=== PATIENT | female | born 1960 | race Hispanic/Latino ===

== ENCOUNTER 2016-05-12 16:55 | Inpatient (IN) | payer BC, OTHER ==
--- NOTE | 2016-05-12 17:39 | Emergency Department Report ---
Chief Complaint: Abdominal Pain Stated Complaint: ABD PAIN/YELLOW SKIN Time Seen by Provider: 05/12/16 17:36 - HPI History of Present Illness: Patient reports abdominal pain with yellow discoloration of skin that started one week ago - ROS Review of Systems: all other systems are unremarkable except for documentation in HPI - Exam Vital Signs: Vital Signs 05/12/16 17:30 Temperature 97.1 F L Pulse Rate 106 H Respiratory 20 Rate Blood Pressure 153/86 O2 Sat by Pulse 93 Oximetry Physical Exam: Gen: obese, NAD Abd: soft, obese, diffuse tenderness, bowel sounds present, no guarding, rebound or rigid MSE screening note: Focused history and physical exam performed. Due to findings the following was ordered: laboratory studies ordered ED Disposition for MSE Condition: Stable Instructions: Abdominal Pain (ED)
[2016-05-12 17:55] LABS: Basophils % (Auto) 0.4 % (0.0-1.8); Eosinophils % (Auto) 0.7 % (0.0-4.3); Hematocrit 45.2 % (30.3-42.9); Hemoglobin 15.1 gm/dl (10.1-14.3); Mean Corpuscular HGB Conc 33 % (30-34); Mean Corpuscular Hemoglobin 30 pg (28-32); Mean Corpuscular Volume 89 fl (79-97); Red Cell Distribution Width 16.5 % (13.2-15.2); White Blood Count 16.6 K/mm3 (4.5-11.0)
[2016-05-12 18:07] LABS: Partial Thromboplastin Time 28.7 Sec. (24.2-36.6)
[2016-05-12 18:11] LABS: INR 1.01 (0.87-1.13)
[2016-05-12 18:12] LABS: Platelet Count 295 K/mm3 (140-440)
[2016-05-12 18:17] LABS: Albumin 3.2 g/dL (3.9-5); Albumin/Globulin Ratio 0.7 %; Total Protein 7.8 g/dL (6.3-8.2)
[2016-05-12 18:18] LABS: Alanine Aminotransferase 59 units/L (7-56); Albumin 3.3 g/dL (3.9-5); Albumin/Globulin Ratio 0.8 %; Alkaline Phosphatase 607 units/L (35-129); Blood Urea Nitrogen 7 mg/dL (7-17); Calcium 9.3 mg/dL (8.4-10.2); Carbon Dioxide 22 mmol/L (22-30); Glucose 175 mg/dL (65-100); Sodium 136 mmol/L (137-145); Total Protein 7.7 g/dL (6.3-8.2)
[2016-05-12 19:15] LABS: Bilirubin,Direct 12.9 mg/dL (0-0.2); Bilirubin,Indirect 4.9 mg/dL; Bilirubin,Total 17.8 mg/dL (0.1-1.2)
[2016-05-12 19:16] LABS: Anion Gap 22 mmol/L; Bilirubin,Total 17.3 mg/dL (0.1-1.2)
[2016-05-12 19:26] LABS: Bacteria,Urine 1+ /HPF (Negative); Bilirubin,Urine MOD (Negative); Blood,Urine MOD (Negative); Ketones,Urine NEG (Negative); Leukocyte Esterase,Urine NEG (Negative); Mucus,Urine FEW /HPF; Nitrite,Urine NEG (Negative); RBC,Urine < 1.0 /HPF (0.0-6.0); WBC,Urine < 1.0 /HPF (0.0-6.0)
--- NOTE | 2016-05-13 09:02 | Emergency Department Report ---
ED Abdominal Pain HPI - General Chief Complaint: Abdominal Pain Stated Complaint: ABD PAIN/YELLOW SKIN Time Seen by Provider: 05/13/16 09:00 Source: patient Mode of arrival: Ambulatory Limitations: No Limitations - History of Present Illness Initial Comments: The patient has some postprandial discomfort chronically. She states that her daughter noted her eyes were yellow this morning. That is why she came to the emergency department she is not complaining of any acute abdominal pain. She's had no signs of GI bleeding. She states that she may have lost about 26 pounds since she last saw her primary care doctor over the summer. She states she lost her insurance so she has not followed up. He has had some increased leg swelling. She does not complain of shortness of breath however. She states that she has had previous Dopplers of her legs which negative for DVT. She thinks he's had a previous ultrasound a few years ago that was not at this facility. Denies any recent fever or chills. MD Complaint: abdominal pain -: week(s), month(s) Location: periumbilical Radiation: none Migration to: no migration Severity: mild, moderate Quality: dull Consistency: now resolved Improves With: nothing Worsens With: eating Associated Symptoms: denies other symptoms - Related Data Home Medications Medication Instructions Recorded Confirmed Last Taken No Known Home Medications [No 05/12/16 05/12/16 Unknown Reported Home Medications] Allergies Allergy/AdvReac Type Severity Reaction Status Date / Time No Known Allergies Allergy Verified 05/13/16 10:03 ED Review of Systems ROS: Stated complaint: ABD PAIN/YELLOW SKIN Other details as noted in HPI Constitutional: denies: chills, fever Eyes: denies: eye pain, eye discharge, vision change ENT: denies: ear pain, throat pain Respiratory: denies: cough, shortness of breath, wheezing Cardiovascular: denies: chest pain, palpitations Endocrine: no symptoms reported Gastrointestinal: as per HPI, abdominal pain, other (states stool has been light in color). denies: nausea, diarrhea, hematemesis, melena Genitourinary: denies: urgency, dysuria, discharge Musculoskeletal: other (some leg swelling). denies: back pain, joint swelling, arthralgia Skin: denies: rash, lesions Neurological: denies: headache, weakness, paresthesias Psychiatric: denies: anxiety, depression Hematological/Lymphatic: denies: easy bleeding, easy bruising ED Past Medical Hx - Past Medical History Previous Medical History?: Yes Additional medical history: abd. pain, Leg swelling - Surgical History Past Surgical History?: Yes Additional Surgical History: Oli carpel tunnel surgery - Social History Smoking Status: Current Every Day Smoker Substance Use Type: None, Other - Medications Home Medications: Home Medications Medication Instructions Recorded Confirmed Last Taken Type No Known Home Medications [No 05/12/16 05/12/16 Unknown History Reported Home Medications] ED Physical Exam - General Limitations: No Limitations General appearance: alert, in no apparent distress - Head Head exam: Present: atraumatic, normocephalic - Eye Eye exam: Present: normal appearance. Absent: scleral icterus - ENT ENT exam: Present: mucous membranes moist - Neck Neck exam: Present: normal inspection - Respiratory Respiratory exam: Present: normal lung sounds bilaterally. Absent: respiratory distress - Cardiovascular Cardiovascular Exam: Present: regular rate, normal rhythm. Absent: systolic murmur, diastolic murmur, rubs, gallop - GI/Abdominal GI/Abdominal exam: Present: soft, normal bowel sounds, other (limited by morbid obesity. no apparent ascites.). Absent: distended, tenderness, guarding, rebound, rigid, organomegaly (too obese to really determine) - Extremities Exam Extremities exam: Present: normal inspection, other (mild pretibial edema) - Back Exam Back exam: Present: normal inspection. Absent: CVA tenderness (R), CVA tenderness (L) - Neurological Exam Neurological exam: Present: alert, oriented X3, CN II-XII intact. Absent: motor sensory deficit - Psychiatric Psychiatric exam: Present: normal affect, normal mood - Skin Skin exam: Present: warm, dry, intact, normal color. Absent: rash ED Course Vital Signs 05/12/16 05/13/16 05/13/16 17:30 01:05 08:00 Temperature 97.1 F L 97.5 F L Pulse Rate 106 H 85 Respiratory 20 18 Rate Blood Pressure 153/86 151/71 O2 Sat by Pulse 93 96 97 Oximetry 05/13/16 05/13/16 05/13/16 08:01 08:11 08:12 Temperature Pulse Rate 85 Respiratory 18 Rate Blood Pressure O2 Sat by Pulse 97 96 97 Oximetry 05/13/16 08:19 Temperature Pulse Rate Respiratory 18 Rate Blood Pressure O2 Sat by Pulse 98 Oximetry ED Medical Decision Making - Lab Data Result diagrams: 05/12/16 17:44 05/12/16 17:44 Laboratory Results - last 24 hr 05/12/16 05/12/16 05/12/16 17:44 17:44 17:44 WBC 16.6 H RBC 5.10 H Hgb 15.1 H Hct 45.2 H MCV 89 MCH 30 MCHC 33 RDW 16.5 H Plt Count 295 Lymph % (Auto) 18.6 Bell % (Auto) 4.2 Eos % (Auto) 0.7 Baso % (Auto) 0.4 Lymph # 3.1 Bell # 0.7 Eos # 0.1 Baso # 0.1 Seg Neutrophils % 76.1 H Seg Neutrophils # 12.7 H PT 13.2 INR 1.01 APTT 28.7 Sodium 136 L Potassium 4.0 Chloride 96.0 L Carbon Dioxide 22 Anion Gap 22 BUN 7 Creatinine 0.2 L Estimated GFR > 60 BUN/Creatinine Ratio 35.00 Glucose 175 H Calcium 9.3 Total Bilirubin 17.3 H Direct Bilirubin Indirect Bilirubin AST 48 H ALT 59 H Alkaline Phosphatase 607 H Total Protein 7.7 Albumin 3.3 L Albumin/Globulin Ratio 0.8 Lipase Urine Color Urine Turbidity Urine pH Ur Specific [place] Urine Protein Urine Glucose (UA) Urine Ketones Urine Blood Urine Nitrite Urine Bilirubin Urine Ictotest Urine Urobilinogen Ur Leukocyte Esterase Urine WBC (Auto) Urine RBC (Auto) Urine Bacteria (Auto) Urine Mucus 05/12/16 05/12/16 17:44 18:51 WBC RBC Hgb Hct MCV MCH MCHC RDW Plt Count Lymph % (Auto) Bell % (Auto) Eos % (Auto) Baso % (Auto) Lymph # Bell # Eos # Baso # Seg Neutrophils % Seg Neutrophils # PT INR APTT Sodium Potassium Chloride Carbon Dioxide Anion Gap BUN Creatinine Estimated GFR BUN/Creatinine Ratio Glucose Calcium Total Bilirubin 17.8 H Direct Bilirubin 12.9 H Indirect Bilirubin 4.9 AST 48 H ALT 59 H Alkaline Phosphatase 602 H Total Protein 7.8 Albumin 3.2 L Albumin/Globulin Ratio 0.7 Lipase 22 Urine Color [place] Urine Turbidity Clear Urine pH 5.0 Ur Specific [place] 1.021 Urine Protein 30 mg/dl Urine Glucose (UA) Neg Urine Ketones Neg Urine Blood Mod Urine Nitrite Neg Urine Bilirubin Mod Urine Ictotest Positive Urine Urobilinogen 4.0 Ur Leukocyte Esterase Neg Urine WBC (Auto) < 1.0 Urine RBC (Auto) < 1.0 Urine Bacteria (Auto) 1+ Urine Mucus Few - EKG Data -: EKG Interpreted by Me EKG shows normal: sinus rhythm, axis, intervals, QRS complexes, ST-T waves Rate: normal - EKG Data Interpretation: nonspecific ST-T wave riya, other (low-voltage EKG 1 PVC nonspecific changes) - Medical Decision Making The patient does appear to have biliary obstruction most likely. I have ordered imaging studies. She was admitted by Dr. blandon or to the hospitalist service. Studies are pending. Patient is admitted in stable condition. Critical care attestation.: If time is entered above; I have spent that time in minutes in the direct care of this critically ill patient, excluding procedure time. ED Disposition Clinical Impression: Biliary obstruction Hepatic failure Qualifiers: Liver failure chronicity: subacute Hepatic coma status: without hepatic coma Qualified Code(s): K72.00 - Acute and subacute hepatic failure without coma Leukocytosis Qualifiers: Leukocytosis type: unspecified Qualified Code(s): D72.829 - Elevated white blood cell count, unspecified Disposition: OP ADMITTED IP TO THIS HOSP Is pt being admited?: Yes Does the pt Need Aspirin: Yes Condition: Stable Time of Disposition: 10:34
--- NOTE | 2016-05-13 09:49 | History and Physical Report ---
History of Present Illness Date of examination: 05/13/16 Date of admission: 05/13/16 Chief complaint: Abdominal pain and yellowish discoloration of skin last 1 week History of present illness: Very pleasant morbidly obese 56-year-old female patient with no significant past medical history not on any medications except for ongoing tobacco use presented to the emergency room with history of abdominal pain and yellowish discoloration of the skin for the last 1 week Patient also reports that she lost significant weight last few months Complains of nausea no vomiting, denies headache dizziness weakness or numbness Denies chest pain , complains of mild shortness of breath Cause of social issues she is not able to follow with her primary care physician on a regular basis, not on any medications Complaints of some swelling of both feet Abdominal pain dull sometimes colicky , grades between 3-4/10 at its peak Mainly periumbilical and right upper quadrant, no radiation Associated with mild nausea no vomiting No aggravating and relieving factors At the time of my evaluation patient does not have pain Past History Past Medical History: other (edema legs) Past Surgical History: Other (carpal tunnel surgery) Social history: lives with family, smoking, full code. denies: alcohol abuse, prescription drug abuse, IV drug use Family history: hypertension Medications and Allergies Allergies Allergy/AdvReac Type Severity Reaction Status Date / Time No Known Allergies Allergy Verified 05/13/16 10:03 Home Medications Medication Instructions Recorded Confirmed Last Taken Type No Known Home Medications [No 05/12/16 05/12/16 Unknown History Reported Home Medications] Review of Systems Constitutional: weight loss, weakness, no weight gain, no fever, no chills Ears, nose, mouth and throat: no nasal congestion, no nasal discharge Cardiovascular: no chest pain, no orthopnea, no palpitations, no shortness of breath Respiratory: no cough with sputum, no shortness of breath Gastrointestinal: abdominal pain, nausea, jaundice, no vomiting Musculoskeletal: no myalgias, no arthritis Integumentary: jaundice, color changes (icterus), no rash, no lesions Neurological: no paralysis, no seizures, no syncope Psychiatric: no anxiety, no depression Endocrine: no cold intolerance, no heat intolerance, no polydipsia, no polyuria Hematologic/Lymphatic: no easy bruising, no easy bleeding Allergic/Immunologic: no urticaria, no allergic rhinitis Exam - Constitutional Vitals: Temp Pulse Resp BP Pulse Ox 97.5 F L 85 18 151/71 98 05/13/16 01:05 05/13/16 08:12 05/13/16 08:19 05/13/16 01:05 05/13/16 08:19 General appearance: Present: no acute distress, well-nourished, obese (morbidly obese), other (icterus) - EENT Eyes: Present: PERRL, EOM intact, scleral icterus - Neck Neck: Present: supple, normal ROM - Respiratory Respiratory effort: normal Respiratory: bilateral: diminished, negative: rales, rhonchi, wheezing - Cardiovascular Rhythm: regular Heart Sounds: Present: S1 & S2 - Extremities Extremities: no ischemia, pulses intact, pulses symmetrical Extremity abnormal: edema - Abdominal General gastrointestinal: Present: soft, non-tender, non-distended, normal bowel sounds - Integumentary Integumentary: Present: clear, warm, jaundice - Musculoskeletal Musculoskeletal: strength equal bilaterally, generalized weakness - Psychiatric Psychiatric: appropriate mood/affect, cooperative - Neurologic Neurologic: CNII-XII intact, moves all extremities Results - Labs CBC & Chem 7: 05/14/16 04:50 05/14/16 04:50 Labs: Abnormal lab results 05/12/16 05/12/16 05/12/16 Range/Units 17:44 17:44 17:44 WBC 16.6 H (4.5-11.0) K/mm3 RBC 5.10 H (3.65-5.03) M/mm3 Hgb 15.1 H (10.1-14.3) gm/dl Hct 45.2 H (30.3-42.9) % RDW 16.5 H (13.2-15.2) % Seg Neutrophils % 76.1 H (40.0-70.0) % Seg Neutrophils # 12.7 H (1.8-7.7) K/mm3 Sodium 136 L (137-145) mmol/L Chloride 96.0 L (98-107) mmol/L Creatinine 0.2 L (0.7-1.2) mg/dL Glucose 175 H (65-100) mg/dL Total Bilirubin 17.3 H 17.8 H (0.1-1.2) mg/dL Direct Bilirubin 12.9 H (0-0.2) mg/dL AST 48 H 48 H (5-40) units/L ALT 59 H 59 H (7-56) units/L Alkaline Phosphatase 607 H 602 H (35-129) units/L Albumin 3.3 L 3.2 L (3.9-5) g/dL Assessment and Plan --Obstructive Jaundice Secondary to cholelithiasis, obstructed CBD GI evaluation possible ERCP, supportive care --Cholilithiasis IV fluids and supportive care GI evaluation, surgery evaluation if needed --Leukocytosis, rule out sepsis UA analysis consistent with UTI Get urine cultures, empiric antibiotics With Rocephin --Ongoing tobacco use Smoking cessation counseling done, advised nicotine patch Patient counseled on this and consequences of ongoing tobacco use Spent 10 minutes smoking cessation counseling --Morbid obesity Counseling done advised dietary modification and exercise as tolerated and weight reduction When medically stable Patient may benefit outpatient bariatric surgical evaluation for weight reduction --Full CODE STATUS Closely monitor the patient and adjust the management as needed Medical records reviewed Plan of care discussed with the patient, family member at the bedside as well as the nurse
[2016-05-13] MEDS ORDERED: HABITROL TD ONE (09:51)
[2016-05-13 09:59] LABS: Bilirubin,Direct 7.4 mg/dL (0-0.2); Bilirubin,Indirect 8.9 mg/dL; Bilirubin,Total 16.3 mg/dL (0.1-1.2); Magnesium 1.9 mg/dL (1.7-2.3)
--- NOTE | 2016-05-13 10:54 | Ultrasound Report ---
Sonogram right upper quadrant: History: Jaundice. Findings Aortic diameter 1.6 cm. No aneurysm. Dilatation noted the intrahepatic ducts and common bile duct. Common bile duct measures 15 mm. Gallbladder wall thickness is 2.5 mm. Multiple calculi are identified within the gallbladder. No pericholecystic fluid. Multiple calculi are noted the common bile duct. Right kidney 12.2 x 4.9 x 4.9 cm. Cortical thickness 1.2 cm. 1 cm echogenic focus in the right kidney suggestive of a calculus. Mild hydronephrosis. Next Impression: Calculi in the gallbladder and common bile duct with dilatation of common bile duct and intrahepatic ducts. Calculus at upper pole right kidney. Mild dilatation of intrarenal collecting system of right kidney.
--- NOTE | 2016-05-13 11:17 | Cat Scan Report ---
CT scan of abdomen and pelvis with IV contrast: History: Jaundice. Findings: Normal lung bases. No pleural or pericardial effusion. Dilated intrahepatic ducts and common bile duct with maximum diameter of common bile duct in the husam hepatis a 20 mm. Multiple calculi in gallbladder. Suspicion of calculus in the common bile duct. Normal pancreas. Normal spleen. Normal adrenals. 5mm nonobstructing calculus left kidney and 3 mm nonobstructive left mid kidney. 1 cm hypodensity left kidney probably a cyst. Normal bladder. No free intraperitoneal fluid. No evidence of adenopathy. Atherosclerotic abdominal aorta without aneurysm. 5 cm diameter umbilical hernia containing fat. Gaseous colon with stool in colon. No evidence of appendicitis or diverticulitis. Impression: Dilated intrahepatic ducts and common bile duct with calculi in common bile duct. Multiple calculi in gallbladder. Nonobstructing calculus right and left kidney. Hypodensity left kidney probably a cyst. Umbilical hernia containing fat.
--- NOTE | 2016-05-13 11:38 | XRay Report ---
Single view chest compared to 04/24/13 History: Hypertension. Next Findings Cardiomegaly. Trachea is midline. Low-volume lungs. No consolidation, pneumothorax or pleural effusion. Impression No acute cardiopulmonary findings
[2016-05-13] MEDS ORDERED: MORPHINE IV PRN (11:57)
[2016-05-13] MEDS ORDERED: PERCOCET 5/325 PO PRN (11:57)
[2016-05-13] MEDS: PROTONIX PO SCH (13:38)
[2016-05-13] MEDS: NACL 0.9% 1000 ML 1,000 ML IV SCH (13:38)
--- NOTE | 2016-05-13 19:47 | Gastroenterology Consultation ---
History of Present Illness - Reason for Consult Consult date: 05/13/16 jaundice - History of Present Illness Pt is a 56 yo morbidly obese wf who presents with jaundice. Pt reports noticing change in eyes/skin color for the past 1 week. She reports ~1 month history of lower abdominal pain, which occurs intermittently, and worsened with meals. + chills at home. Denies n/v, weight loss. Denies h/o known liver disease or alcohol use. Past History Past Medical History: other (edema legs) Past Surgical History: Other (carpal tunnel surgery) Social history: lives with family, smoking, full code. denies: alcohol abuse, prescription drug abuse, IV drug use Family history: hypertension Medications and Allergies Allergies Allergy/AdvReac Type Severity Reaction Status Date / Time No Known Allergies Allergy Verified 05/13/16 10:03 Home Medications Medication Instructions Recorded Confirmed Last Taken Type No Known Home Medications [No 05/12/16 05/12/16 Unknown History Reported Home Medications] Active Meds: Active Medications Aspirin (Baby Aspirin) 81 mg PO ONCE ONE Stop: 05/14/16 10:36 Enoxaparin Sodium (Lovenox) 40 mg SUB-Q QDAY@2200 DEX Sodium Chloride (Nacl 0.9% 1000 Ml) 1,000 mls @ 75 mls/hr IV DIRECT [facility] Last Admin: 05/13/16 13:38 Dose: 75 mls/hr Piperacillin Sod/Tazobactam Sod (Zosyn/Ns 4.5gm/100ml) 100 mls @ 200 mls/hr IV Q8HR DEX PRN Reason: Protocol Morphine Sulfate (Morphine) 2 mg IV Q4H PRN PRN Reason: Pain, Moderate (4-6) Oxycodone/Acetaminophen (Percocet 5/325) 1 tab PO Q6H PRN PRN Reason: Pain, Moderate (4-6) Pantoprazole (Protonix) 40 mg PO QDAY [facility] Last Admin: 05/13/16 13:38 Dose: 40 mg Review of Systems - Review of Systems All systems: negative Gastrointestinal: abdominal pain, jaundice Exam - Exam Narrative Exam: Gen: nad, morbidly obese female, jaundiced Head: nc/at Eyes: + icterus, eomi Mouth: mmm, no oral lesions Neck: obese neck, no LAD Lungs: CTAB, non labored Abd: soft, + lower quadrant ttp, no rebound/guarding, nd, +bs Neuro: grossly normal Psych: appropriate mood and affect Ext: trace edema Skin: jaundiced, no obvious rashes - Constitutional Vital Signs: Temp Pulse Resp BP Pulse Ox 98.0 F 76 20 128/60 97 05/13/16 16:05 05/13/16 16:05 05/13/16 16:05 05/13/16 16:05 05/13/16 12:06 - Labs CBC & Chem 7: 05/12/16 17:44 05/12/16 17:44 Lab Results: Laboratory Results - last 24 hr 05/13/16 05/13/16 09:24 09:24 Magnesium 1.9 Total Bilirubin 16.3 H Direct Bilirubin 7.4 H Indirect Bilirubin 8.9 Ammonia 31.0 - Imaging X-ray: report reviewed CT Scan: report reviewed Ultrasound: report reviewed Assessment and Plan 56 yo female presents with obstructive jaundice with imaging showing CBD stone with upstream dilatation. elevated wbc, but otherwise afebrile with stable vital signs. Will start zosyn for possible cholangitis. Plan for likely ERCP tomorrow. Hold AM lovenox. Discussed with pt in detail, and pt's nurse regarding plan. Will need surgery consult as well for evaluation for cholecystectomy.
[2016-05-13] MEDS: ZOSYN/NS 4.5GM/100ML 100 ML IV SCH (21:24)
[2016-05-13] MEDS ORDERED: LOVENOX SUB-Q SCH (22:00)
[2016-05-14] MEDS: NACL 0.9% 1000 ML 1,000 ML IV SCH ×3 (03:43→21:45)
[2016-05-14] MEDS: ZOSYN/NS 4.5GM/100ML 100 ML IV SCH ×3 (05:39→21:44)
[2016-05-14 05:48] LABS: Hematocrit 40.2 % (30.3-42.9); Hemoglobin 13.6 gm/dl (10.1-14.3); Mean Corpuscular HGB Conc 34 % (30-34); Mean Corpuscular Hemoglobin 30 pg (28-32); Mean Corpuscular Volume 88 fl (79-97); Platelet Count 237 K/mm3 (140-440); Red Blood Count 4.57 M/mm3 (3.65-5.03); Red Cell Distribution Width 16.5 % (13.2-15.2); White Blood Count 11.5 K/mm3 (4.5-11.0)
[2016-05-14 06:05] LABS: Alanine Aminotransferase 51 units/L (7-56); Albumin 3.1 g/dL (3.9-5); Albumin/Globulin Ratio 0.8 %; Alkaline Phosphatase 530 units/L (35-129); Blood Urea Nitrogen 7 mg/dL (7-17); Calcium 8.9 mg/dL (8.4-10.2); Carbon Dioxide 23 mmol/L (22-30); Chloride 94.2 mmol/L (98-107); Glucose 145 mg/dL (65-100); Potassium 3.5 mmol/L (3.6-5.0); Sodium 135 mmol/L (137-145); Total Protein 6.9 g/dL (6.3-8.2)
[2016-05-14 06:09] LABS: Anion Gap 21 mmol/L
[2016-05-14 06:11] LABS: Bilirubin,Total 17.3 mg/dL (0.1-1.2)
[2016-05-14 06:20] LABS: Bilirubin,Direct 12.5 mg/dL (0-0.2); Bilirubin,Indirect 4.8 mg/dL
[2016-05-14 06:45] LABS: Basophils % (Manual) 0 % (0.0-1.8); Blastocytes % (Manual) 0 %
[2016-05-14 06:46] LABS: Diff Status Complete; Platelet Estimate Consistent w Auto; RBC Morphology Normal
--- NOTE | 2016-05-14 07:31 | Admit Criteria Form ---
Admission Criteria Documentation: GALLBLADDER OR BILE DUCT INFLAMMATION OR STONE Clinical Indications for Admission to Inpatient Care ( Place 'X' for any and all applicable criteria): Admission is indicated for patients with ANY ONE of the following(1)(2)(3)(4)(5) : [ ]I. Acute cholecystitis as indicated by ALL of the following: [ ]a) Right upper quadrant pain, mass, or tenderness [ ]b) Systemic signs of inflammation indicated by ANY ONE of the following: [ ]i) Fever [ ]ii) C-reactive protein level greater than 10 mg/L (95 nmol/L) [ ]iii) White blood cell count greater than 10,000/mm3 (10 x109/L) or less than 4000/mm3 (4 x109/L) [X]II. Inpatient admission required rather than observation care (Also use Gallbladder or Bile Duct Inflammation or Stone: Observation Care as appropriate) because of ANY ONE of the following: [X]a) Common bile duct obstruction diagnosed [ ]b) Vomiting that is severe or persistent [ ]c) Severe pain requiring acute inpatient management [ ]d) Signs of intestinal obstruction or peritonitis [A] [ ]e) Severe electrolyte abnormalities requiring inpatient care [ ]f) Absent bowel sounds with complete ileus(8) [ ]g) Hemodynamic instability [ ]h) High fever or infection requiring inpatient admission as indicated by ANY ONE of the following (9): [ ]1) Appropriate outpatient or observation care antimicrobial Treatment. unavailable, not effective, or not feasible [ ]2) Temperature greater than 104.9 degrees F (40.5 degrees C) (oral) [ ]3) Temperature greater than 103.1 degrees F (39.5 degrees C) (oral) or less than 96.8 degrees F (36 degrees C) (rectal) that does not respond to all emergency treatment measures [ ]4) Documented bacteremia [ ]i) IV fluid to replace significant ongoing losses (greater than 3 L/m2 per day) [ ]j) Percutaneous or open drainage (eg, abscess, biliary tract) procedures [ ]k) Immediate inpatient surgery [ ]l) Other condition, treatment or monitoring requiring inpatient admission [X]III. Acute cholangitis as indicated by ALL of the following(9)(10): [X]a) Systemic signs of inflammation indicated by ANY ONE of the following: [ ]i) Fever [ ]ii) C-reactive protein level greater than 10 mg/L (95 nmol /L) [X ]iii) White blood cell count greater than 10,000/mm3 (10 x109/L) or less than 4000/mm3 (4 x109/L) [X ]b) Evidence of common bile duct disease indicated by ANY ONE of the following: [X]i) Total serum bilirubin level greater than or equal to 2 mg/dL (34 micromoles/L) [X]ii) Liver function test (alkaline phosphatase (ALP), r- glutamyltransferase (GGT), aspartate aminotransferase (AST), or alanine aminotransferase (ALT)) greater than 1.5 times the upper limit of normal[B] [X]iii) Hepatobiliary imaging showing biliary dilatation or evidence of etiology (eg, stricture, stone, previously placed stent) Extended stay beyond goal length of stay may be needed for (1)(2)): [ ]a) Bacteremia or Hemodynamic instability [ ]b) Cholecystectomy [ ]c) Other surgical procedure(24) [ ]d) Percutaneous or endoscopic ultrasound-guided cholecystostomy The original [facility] content created by [facility] [employer] has been revised. The portions of the content which have been revised are identified through the use of italic text or in bold, and [facility] has neither reviewed nor approved the modified material. All other unmodified content is copyright [facility]. Please see references footnoted in the original [facility] edition 2016 Admission Criteria Met: Yes
[2016-05-14] MEDS ORDERED: KCL 10MEQ/100ML 100 ML IV ONE (10:00)
[2016-05-14] MEDS ORDERED: WATER FOR IRRIG STERILE IR ONE ×2 (10:06→10:54)
[2016-05-14] MEDS ORDERED: NACL 0.9% 0 ML ONE (10:07)
[2016-05-14] MEDS ORDERED: BABY ASPIRIN PO ONE (10:35)
[2016-05-14] MEDS ORDERED: NACL 0.9% 100 ML ONE (10:55)
--- NOTE | 2016-05-14 11:13 | Progress Note ---
Assessment and Plan Assessment and plan: --Obstructive Jaundice Secondary to cholelithiasis, obstructed CBD Scheduled for ERCP today GI evaluation and recommendations noted and appreciated --Cholilithiasis IV fluids and supportive care Surgical evaluation for possible cholecystectomy --Leukocytosis, rule out sepsis Trending down, probably secondary to UTI Continue empiric antibiotics follow cultures --Ongoing tobacco use Smoking cessation counseling done, advised nicotine patch --Morbid obesity Counseling done advised dietary modification and exercise as tolerated and weight reduction When medically stable Patient may benefit outpatient bariatric surgical evaluation for weight reduction --Full CODE STATUS Follow GI and surgical evaluations and recommendations Plan of care discussed with the patient as well as the nurse History Interval history: Patient seen and evaluated medical records reviewed No new events reported by the nursing staff Admitted with obstructive jaundice seen by GI scheduled for ERCP today Patient feels slightly better, denies nausea vomiting denies abdominal pain Alert awake oriented 3 not in acute distress Vital signs reviewed Hospitalist Physical - Constitutional Vitals: Temp Pulse Resp BP Pulse Ox 97.7 F 72 20 136/72 95 05/14/16 08:00 05/14/16 08:00 05/14/16 08:00 05/14/16 08:00 05/14/16 08:00 General appearance: Present: no acute distress, well-nourished, obese (morbidly obese), other (icterus) - EENT Eyes: Present: PERRL, EOM intact, scleral icterus - Neck Neck: Present: supple, normal ROM - Respiratory Respiratory effort: normal Respiratory: bilateral: diminished, negative: rales, rhonchi, wheezing - Cardiovascular Rhythm: regular Heart Sounds: Present: S1 & S2 - Extremities Extremities: no ischemia, pulses intact, pulses symmetrical Peripheral Pulses: within normal limits - Abdominal General gastrointestinal: soft, non-tender, non-distended, normal bowel sounds - Integumentary Integumentary: Present: clear, warm - Psychiatric Psychiatric: appropriate mood/affect, cooperative - Neurologic Neurologic: CNII-XII intact, moves all extremities Results - Labs CBC & Chem 7: 05/14/16 04:50 05/14/16 04:50 Labs: Laboratory Last Values WBC 11.5 K/mm3 (4.5-11.0) H 05/14/16 04:50 RBC 4.57 M/mm3 (3.65-5.03) 05/14/16 04:50 Hgb 13.6 gm/dl (10.1-14.3) 05/14/16 04:50 Hct 40.2 % (30.3-42.9) 05/14/16 04:50 MCV 88 fl (79-97) 05/14/16 04:50 MCH 30 pg (28-32) 05/14/16 04:50 MCHC 34 % (30-34) 05/14/16 04:50 RDW 16.5 % (13.2-15.2) H 05/14/16 04:50 Plt Count 237 K/mm3 (140-440) 05/14/16 04:50 Lymph % (Auto) 18.6 % (13.4-35.0) 05/12/16 17:44 [place] % (Auto) 4.2 % (0.0-7.3) 05/12/16 17:44 Eos % (Auto) 0.7 % (0.0-4.3) 05/12/16 17:44 Baso % (Auto) 0.4 % (0.0-1.8) 05/12/16 17:44 Lymph # 3.1 K/mm3 (1.2-5.4) 05/12/16 17:44 [place] # 0.7 K/mm3 (0.0-0.8) 05/12/16 17:44 Eos # 0.1 K/mm3 (0.0-0.4) 05/12/16 17:44 Baso # 0.1 K/mm3 (0.0-0.1) 05/12/16 17:44 Add Manual Diff Complete 05/14/16 04:50 Total Counted 100 05/14/16 04:50 Seg Neutrophils % 76.1 % (40.0-70.0) H 05/12/16 17:44 Seg Neuts % (Manual) 73.0 % (40.0-70.0) H 05/14/16 04:50 Band Neutrophils % 5.0 % 05/14/16 04:50 Lymphocytes % (Manual) 11.0 % (13.4-35.0) L 05/14/16 04:50 Reactive Lymphs % (Man) 0 % 05/14/16 04:50 Monocytes % (Manual) 8.0 % (0.0-7.3) H 05/14/16 04:50 Eosinophils % (Manual) 3.0 % (0.0-4.3) 05/14/16 04:50 Basophils % (Manual) 0 % (0.0-1.8) 05/14/16 04:50 Metamyelocytes % 0 % 05/14/16 04:50 Myelocytes % 0 % 05/14/16 04:50 Promyelocytes % 0 % 05/14/16 04:50 Blast Cells % 0 % 05/14/16 04:50 Nucleated RBC % Not Reportable 05/14/16 04:50 Seg Neutrophils # 12.7 K/mm3 (1.8-7.7) H 05/12/16 17:44 Seg Neutrophils # Man 8.4 K/mm3 (1.8-7.7) H 05/14/16 04:50 Band Neutrophils # 0.6 K/mm3 05/14/16 04:50 Lymphocytes # (Manual) 1.3 K/mm3 (1.2-5.4) 05/14/16 04:50 Abs React Lymphs (Man) 0.0 K/mm3 05/14/16 04:50 Monocytes # (Manual) 0.9 K/mm3 (0.0-0.8) H 05/14/16 04:50 Eosinophils # (Manual) 0.3 K/mm3 (0.0-0.4) 05/14/16 04:50 Basophils # (Manual) 0.0 K/mm3 (0.0-0.1) 05/14/16 04:50 Metamyelocytes # 0.0 K/mm3 05/14/16 04:50 Myelocytes # 0.0 K/mm3 05/14/16 04:50 Promyelocytes # 0.0 K/mm3 05/14/16 04:50 Blast Cells # 0.0 K/mm3 05/14/16 04:50 WBC Morphology Not Reportable 05/14/16 04:50 Hypersegmented Neuts Not Reportable 05/14/16 04:50 Hyposegmented Neuts Not Reportable 05/14/16 04:50 Hypogranular Neuts Not Reportable 05/14/16 04:50 Smudge Cells Not Reportable 05/14/16 04:50 Toxic Granulation Not Reportable 05/14/16 04:50 Toxic Vacuolation Not Reportable 05/14/16 04:50 Dohle Bodies Not Reportable 05/14/16 04:50 Pelger-Huet Anomaly Not Reportable 05/14/16 04:50 Logan Rods Not Reportable 05/14/16 04:50 Platelet Estimate Consistent w auto 05/14/16 04:50 Clumped Platelets Not Reportable 05/14/16 04:50 Plt Clumps, EDTA Not Reportable 05/14/16 04:50 Large Platelets Not Reportable 05/14/16 04:50 Giant Platelets Not Reportable 05/14/16 04:50 Platelet Satelliting Not Reportable 05/14/16 04:50 Plt Morphology Comment Not Reportable 05/14/16 04:50 RBC Morphology Normal 05/14/16 04:50 Dimorphic RBCs Not Reportable 05/14/16 04:50 Polychromasia Not Reportable 05/14/16 04:50 Hypochromasia Not Reportable 05/14/16 04:50 Poikilocytosis Not Reportable 05/14/16 04:50 Anisocytosis Not Reportable 05/14/16 04:50 Microcytosis Not Reportable 05/14/16 04:50 Macrocytosis Not Reportable 05/14/16 04:50 Spherocytes Not Reportable 05/14/16 04:50 Pappenheimer Bodies Not Reportable 05/14/16 04:50 Sickle Cells Not Reportable 05/14/16 04:50 Target Cells Not Reportable 05/14/16 04:50 Tear Drop Cells Not Reportable 05/14/16 04:50 Ovalocytes Not Reportable 05/14/16 04:50 Helmet Cells Not Reportable 05/14/16 04:50 [place] Bodies Not Reportable 05/14/16 04:50 [place] Rings Not Reportable 05/14/16 04:50 [place] Cells Not Reportable 05/14/16 04:50 Bite Cells Not Reportable 05/14/16 04:50 Crenated Cell Not Reportable 05/14/16 04:50 Elliptocytes Not Reportable 05/14/16 04:50 Acanthocytes (Spur) Not Reportable 05/14/16 04:50 Rouleaux Not Reportable 05/14/16 04:50 Hemoglobin C Crystals Not Reportable 05/14/16 04:50 Schistocytes Not Reportable 05/14/16 04:50 Malaria parasites Not Reportable 05/14/16 04:50 Abdirahman Bodies Not Reportable 05/14/16 04:50 Hem Pathologist Commnt No 05/14/16 04:50 PT 13.2 Sec. (12.2-14.9) 05/12/16 17:44 INR 1.01 (0.87-1.13) 05/12/16 17:44 APTT 28.7 Sec. (24.2-36.6) 05/12/16 17:44 Sodium 135 mmol/L (137-145) L 05/14/16 04:50 Potassium 3.5 mmol/L (3.6-5.0) L 05/14/16 04:50 Chloride 94.2 mmol/L (98-107) L 05/14/16 04:50 Carbon Dioxide 23 mmol/L (22-30) 05/14/16 04:50 Anion Gap 21 mmol/L 05/14/16 04:50 BUN 7 mg/dL (7-17) 05/14/16 04:50 Creatinine < 0.2 mg/dL (0.7-1.2) L 05/14/16 04:50 Estimated GFR > 60 ml/min 05/14/16 04:50 BUN/Creatinine Ratio 35.00 % 05/14/16 04:50 Glucose 145 mg/dL (65-100) H 05/14/16 04:50 Calcium 8.9 mg/dL (8.4-10.2) 05/14/16 04:50 Magnesium 1.9 mg/dL (1.7-2.3) 05/13/16 09:24 Total Bilirubin 17.3 mg/dL (0.1-1.2) H 05/14/16 04:50 Direct Bilirubin 12.5 mg/dL (0-0.2) H 05/14/16 04:50 Indirect Bilirubin 4.8 mg/dL 05/14/16 04:50 AST 45 units/L (5-40) H 05/14/16 04:50 ALT 51 units/L (7-56) 05/14/16 04:50 Alkaline Phosphatase 530 units/L (35-129) H 05/14/16 04:50 Ammonia 31.0 umol/L (25-60) 05/13/16 09:24 Total Protein 6.9 g/dL (6.3-8.2) 05/14/16 04:50 Albumin 3.1 g/dL (3.9-5) L 05/14/16 04:50 Albumin/Globulin Ratio 0.8 % 05/14/16 04:50 Lipase 22 units/L (13-60) 05/12/16 17:44 Urine Color [place] (Yellow) 05/12/16 18:51 Urine Turbidity Clear (Clear) 05/12/16 18:51 Urine pH 5.0 (5.0-7.0) 05/12/16 18:51 Ur Specific [place] 1.021 (1.003-1.030) 05/12/16 18:51 Urine Protein 30 mg/dl mg/dL (Negative) 05/12/16 18:51 Urine Glucose (UA) Neg mg/dL (Negative) 05/12/16 18:51 Urine Ketones Neg mg/dL (Negative) 05/12/16 18:51 Urine Blood Mod (Negative) 05/12/16 18:51 Urine Nitrite Neg (Negative) 05/12/16 18:51 Urine Bilirubin Mod (Negative) 05/12/16 18:51 Urine Ictotest Positive (Negative) 05/12/16 18:51 Urine Urobilinogen 4.0 mg/dL (<2.0) 05/12/16 18:51 Ur Leukocyte Esterase Neg (Negative) 05/12/16 18:51 Urine WBC (Auto) < 1.0 /HPF (0.0-6.0) 05/12/16 18:51 Urine RBC (Auto) < 1.0 /HPF (0.0-6.0) 05/12/16 18:51 Urine Bacteria (Auto) 1+ /HPF (Negative) 05/12/16 18:51 Urine Mucus Few /HPF 05/12/16 18:51
[2016-05-14] MEDS ORDERED: VERSED ONE (11:59)
[2016-05-14] MEDS ORDERED: DIPRIVAN 10 MG/ML IV ONE ×3 (11:59)
--- NOTE | 2016-05-14 12:01 | Anesthesia Consultation ---
Anesthesia Consult and Med Hx Date of service: 05/14/16 - Airway Anesthetic Teeth Evaluation: Edentulous ROM Head & Neck: Adequate Mental/Hyoid Distance: Adequate Mallampati Class: Class I Intubation Access Assessment: Good - Pulmonary Exam CTA: Yes - Cardiac Exam Cardiac Exam: RRR - Pre-Operative Health Status ASA Pre-Surgery Classification: ASA3 Proposed Anesthetic Plan: General - Pulmonary Hx Smoking: Yes (1 1/2 packs per day since 1973) Hx Asthma: Yes (Rarely requires inhaler for this or for COPD) COPD: Yes Hx Pneumonia: No - Cardiovascular System Hx Hypertension: Yes - Endocrine Hx End Stage Renal Disease: No Hx Liver Disease: Yes (Biliary obstruction, jaundiced) - Other Systems Hx Obesity: Yes (BMI=55) - Additional Comments Anesthesia Medical History Comments: Negative family history with anesthesia.
--- NOTE | 2016-05-14 12:01 | Anesthesia Day of Surgery ---
Anesthesia Day of Surgery - Day of Surgery Patient Examined: Yes Patient H&P Reviewed: Yes Patient is NPO: Yes (Water @ 6:30 AM, should be clear by 12:30 )
--- NOTE | 2016-05-14 13:24 | Post Operative Note ---
Pre-op diagnosis: CBD stones Post-op diagnosis: other (Multiple stones in dilated CBD, gastroparesis) Findings: 1. CBD dilated to 18 mm, with 4-5 large stones. Sphincterotomy done and 10Fr, 5 cm stent placed. 2. Gastroparesis, with large amount of solid food in stomach. Procedure: ERCP with sphincterotomy, and stent placement Anesthesia: MAC Surgeon: BERNA ESPINOSA Estimated blood loss: none Pathology: none Specimen disposition: to lab Condition: stable Disposition: floor (Repeat ERCP in 2 wks)
--- NOTE | 2016-05-14 13:45 | Post Anesthesia Evaluation ---
- Post Anesthesia Evaluation Patient Participated: Yes Airway Patent: Yes Stable Respiratory Function: Yes Temp > 96.8F: Yes Pain Manageable: Yes Adequeate Hydration: Yes Anesthesia Complications: No Block Receding Appropriately: Not Applicable
[2016-05-14] MEDS: PROTONIX PO SCH (14:18)
--- NOTE | 2016-05-14 17:30 | Operative Report ---
ERCP REPORT PROCEDURE: ERCP with sphincterotomy and stent placement. PREOPERATIVE DIAGNOSIS: Choledocholithiasis. POSTOPERATIVE DIAGNOSIS: Choledocholithiasis and gastroparesis. SEDATION: MAC by anesthesia. HISTORY: The patient is a 56-year-old woman who presented with abdominal pain and jaundice. She was found to have stones in the common bile duct on ultrasound and CT. She had elevated liver enzymes. DESCRIPTION OF PROCEDURE: Indications, risks, and benefits were explained and consent was obtained. The patient was placed on abdomen on fluoroscopy table and sedated. [employer] video duodenoscope was passed through the mouth and oropharynx into the descending duodenum. Scope was then gradually withdrawn with close inspection of the mucosa until the major papilla was visualized. Selective cannulation of the pancreatic duct and then of the common bile duct was achieved using the Autotome and guidewire. FINDINGS: 1. Moderate to large amount of retained solid food noted in stomach. 2. Normal appearing, but bulging major papilla. 3. Pancreatic duct is normal in course in the head and in caliber. 4. Common bile duct is dilated to 2 cm. Multiple large 1 cm filling defect are noted in the common bile duct. These number at least 5, if not more. A 6 mm biliary sphincterotomy was done at 12 o'clock position. Then, a 10-Lao 5 cm long biliary stent was placed in good position. No attempt was made to remove the stones in an effort to complete the procedure rapidly and reduce risk of vomiting and aspiration and yet to provide drainage for cholangitis. COMPLICATIONS: None. ESTIMATED BLOOD LOSS: None. The patient tolerated the procedure well without immediate complications. IMPRESSION: 1. Retained solid food in stomach - consistent with gastroparesis. 2. A 2 cm dilated common bile duct with multiple large stones retained within it. Sphincterotomy done and stents placed. 3. Pancreatic duct normal in head. PLAN: 1.Continue antibiotics and may discharge home tomorrow if continues to do well. 2.Follow up in office and repeat ERCP after 2 weeks to remove stent and clear biliary stones. This should be done with the patient being on clear liquids for at least one day prior to the procedure. 3.Surgical evaluation for cholecystectomy subsequently. JOB# [id number] HRC/NTS
--- NOTE | 2016-05-14 20:33 | Progress Note ---
Subjective Narrative: Pt seen this AM , lengthy talk as to the condition , need to observe post sphinterotomy,and stent by Dr Villarreal , will go home repeat studies in 2 weeks , she will need surgery eventually after temporizing the acute condition ?2 weeks . Objective Vital Signs - 12hr 05/14/16 05/14/16 05/14/16 11:36 11:45 11:52 Temperature 97.7 F 97.7 F 97.7 F Pulse Rate 70 70 70 Pulse Rate [ Left Radial] Respiratory 15 15 15 Rate Blood Pressure 109/79 109/79 109/79 Blood Pressure [Left Arm] O2 Sat by Pulse 95 95 95 Oximetry 05/14/16 05/14/16 05/14/16 13:00 13:15 13:30 Temperature 98.1 F Pulse Rate 82 73 73 Pulse Rate [ Left Radial] Respiratory 16 17 18 Rate Blood Pressure 98/46 114/38 107/48 Blood Pressure [Left Arm] O2 Sat by Pulse 95 95 97 Oximetry 05/14/16 16:38 Temperature 97.3 F L Pulse Rate Pulse Rate [ 72 Left Radial] Respiratory 20 Rate Blood Pressure Blood Pressure 121/58 [Left Arm] O2 Sat by Pulse Oximetry - Labs 05/14/16 04:50 05/14/16 04:50 Diabetes panel 05/14/16 Range/Units 04:50 Sodium 135 L (137-145) mmol/L Potassium 3.5 L (3.6-5.0) mmol/L Chloride 94.2 L (98-107) mmol/L Carbon Dioxide 23 (22-30) mmol/L BUN 7 (7-17) mg/dL Creatinine < 0.2 L (0.7-1.2) mg/dL Glucose 145 H (65-100) mg/dL Calcium 8.9 (8.4-10.2) mg/dL AST 45 H (5-40) units/L ALT 51 (7-56) units/L Alkaline Phosphatase 530 H (35-129) units/L Total Protein 6.9 (6.3-8.2) g/dL Albumin 3.1 L (3.9-5) g/dL Calcium panel 05/14/16 Range/Units 04:50 Calcium 8.9 (8.4-10.2) mg/dL Albumin 3.1 L (3.9-5) g/dL Pituitary panel 05/14/16 Range/Units 04:50 Sodium 135 L (137-145) mmol/L Potassium 3.5 L (3.6-5.0) mmol/L Chloride 94.2 L (98-107) mmol/L Carbon Dioxide 23 (22-30) mmol/L BUN 7 (7-17) mg/dL Creatinine < 0.2 L (0.7-1.2) mg/dL Glucose 145 H (65-100) mg/dL Calcium 8.9 (8.4-10.2) mg/dL Adrenal panel 05/14/16 Range/Units 04:50 Sodium 135 L (137-145) mmol/L Potassium 3.5 L (3.6-5.0) mmol/L Chloride 94.2 L (98-107) mmol/L Carbon Dioxide 23 (22-30) mmol/L BUN 7 (7-17) mg/dL Creatinine < 0.2 L (0.7-1.2) mg/dL Glucose 145 H (65-100) mg/dL Calcium 8.9 (8.4-10.2) mg/dL Total Bilirubin 17.3 H (0.1-1.2) mg/dL AST 45 H (5-40) units/L ALT 51 (7-56) units/L Alkaline Phosphatase 530 H (35-129) units/L Total Protein 6.9 (6.3-8.2) g/dL Albumin 3.1 L (3.9-5) g/dL
--- NOTE | 2016-05-14 22:08 | Consultation ---
HISTORY OF PRESENT ILLNESS: This patient was seen in the Emergency Room, upon her admission 2 days ago, she came because of severe pain to the mid upper abdomen, nausea and vomiting. She noticed that her urine is becoming dark and her bowel movements are becoming dark verma and whitish. Apparently, she had a workup including a CT scan that showed evidence of multiple large stones in the common bile duct that was dilated to 18 mm. Her bilirubin was in the range of 17. All the liver enzymes were highly elevated. I was asked to evaluate her from a general surgical point of view. She was seen by Dr. Wiley as well. PHYSICAL EXAMINATION: GENERAL: At this point showed a well preserved obese lady with exogenous obesity. Her weight is 325. HEAD AND NECK: Negative. BREASTS: Symmetrical. No specific masses. CHEST: Essentially clear to me. HEART: Sound normal to me. ABDOMEN: Protuberant, soft. It was very large. Moderate to severe tenderness in the mid right upper quadrant area. EXTREMITIES: Showed minimal edema. IMPRESSION AND PLAN: Abdominal pain, nausea and vomiting with hyperbilirubinemia, with choledocholithiasis and cholecystolithiasis. She had an ERCP that showed widened common bile duct up to 18__mm. Dr. Arias did a while ago. She underwent a sphincterotomy and a stent insertion. I had a lengthy talk with her and with Dr. Arias. I believe she may go home, we are going to leave that for the clerical manager. Eventually, she is going to have a repeat ERCP as per recommendation of Dr. Arias and may be an MRCP, and then we will talk about a cholecystectomy. In the meantime, the patient was asked to stay away from greasy and heavy meals and she is to call if she has any problem otherwise. To see me or to call me in about 2 weeks. JOB# [id number] ADALID/ROM STONER
[2016-05-15] MEDS: ZOSYN/NS 4.5GM/100ML 100 ML IV SCH (05:25)
[2016-05-15 08:47] LABS: Hematocrit 38.6 % (30.3-42.9); Hemoglobin 12.9 gm/dl (10.1-14.3); Mean Corpuscular HGB Conc 34 % (30-34); Mean Corpuscular Hemoglobin 30 pg (28-32); Mean Corpuscular Volume 89 fl (79-97); Platelet Count 236 K/mm3 (140-440); Red Blood Count 4.35 M/mm3 (3.65-5.03); White Blood Count 10.5 K/mm3 (4.5-11.0)
--- NOTE | 2016-05-15 08:59 | Fluoroscopy Report ---
ERCP: HISTORY: Biliary obstruction. FINDINGS: Fluoroscopy was provided by radiology during ERCP by gastroenterology. 7 fluoroscopic images were captured. The images demonstrate cannulation of the distal common bile duct with an endoscope. There are multiple filling defects in the common bile duct consistent with multiple large gallstones. The stones were partially removed by balloon sweep technique. Papillotomy was performed. A 10 Amharic 5 cm common bile duct stent was placed which relieves the obstruction. The pancreatic duct is normal. IMPRESSION: Choledocholithiasis, as described. Common bile duct stent placement. Please correlate with the procedural report by GI.
[2016-05-15 09:03] LABS: Alanine Aminotransferase 45 units/L (7-56); Albumin 2.9 g/dL (3.9-5); Albumin/Globulin Ratio 0.8 %; Alkaline Phosphatase 473 units/L (35-129); Anion Gap 17 mmol/L; Bilirubin,Total 16.3 mg/dL (0.1-1.2); Blood Urea Nitrogen 5 mg/dL (7-17); Calcium 8.6 mg/dL (8.4-10.2); Carbon Dioxide 24 mmol/L (22-30); Chloride 100.7 mmol/L (98-107); Glucose 119 mg/dL (65-100); Potassium 3.8 mmol/L (3.6-5.0); Sodium 138 mmol/L (137-145); Total Protein 6.5 g/dL (6.3-8.2)
[2016-05-15 09:17] LABS: Bilirubin,Direct 11.4 mg/dL (0-0.2); Bilirubin,Indirect 4.9 mg/dL
--- NOTE | 2016-05-15 09:21 | Discharge Summary ---
Providers - Providers Date of Admission: 05/13/16 09:23 Date of discharge: 05/15/16 Attending physician: NADYA TOMLINSON 05/13/16 18:57 Consult to Physician [CONS] Routine Consulting Provider: ROS NGUYEN Reason For Exam: obstructive jaundice Place consult to:: n/a Notified:: n/a Phone number called:: n/a Was contact made?: No Comment:: md horvath patient ( see notes) 05/14/16 08:48 Consult to Physician [CONS] Routine Consulting Provider: SUBHASH GORMAN Reason For Exam: cholelithiasis/possible cholecystectomy Place consult to:: dr. gorman Notified:: office Phone number called:: Was contact made?: Yes If yes, spoke with:: rosalio Time called:: 09:06 Primary care physician: DIRECTOR STERILE PROCESSING Hospitalization Reason for admission: abdominal pain/yellow discoloration of skin and sclera Condition: Stable Pertinent studies: CT abdomen and pelvis with contrast; dilated intrahepatic ducts and common bile duct with Nawaf Henson common bile duct multiple calculi in the gallbladder nonobstructing calculus right and left kidney hypodensity left kidney probably cyst umbilical hernia containing fat Abdominal ultrasound; calculi in the gallbladder and common bile duct with dilation of common bile duct and intrahepatic ducts Calculus at the upper pole of right kidney mild agitation of intrarenal collecting system of the right kidney Lower extremity venous Doppler; negative for DVT ERCP; with sphincterotomy and stent placement Hospital course: Abdominal pain and yellowish discoloration of the skin for 1 week 56-year-old morbidly obese male patient with no significant past medical history not on any medications except for ongoing tobacco use was admitted through emergency room with abdominal pain and noticed discoloration of the skin and sclera patient was initially evaluated, findings are consistent with, obstructive jaundice, cholelithiasis, leukocytosis Admitted and symptomatically managed, subsequently evaluated by GI, patient underwent ERCP and sphincterotomy and stent placement Patient was also evaluated by surgical services for possible cholecystectomy, advised to continue current management, follow in the office after to 3 weeks for possible interval cholecystectomy Patient's symptoms significantly improved Today he is comfortable in bed alert awake oriented 3 Not in acute distress no nausea vomiting Mild improvement of icterus [id number] evaluation physical examination done by me prior to discharge did not show any new changes as detailed below Advised to follow with GI and surgery per schedule upon discharge Working cessation counseling done patient strongly advised to quit tobacco use Spent 10 minutes counseling the patient Disposition: DISCHARGED TO HOME OR SELFCARE Time spent for discharge: 35 min - Discharge Diagnoses (1) Obstructive jaundice Status: Acute (2) Cholelithiasis Status: Acute Qualifiers: Cholelithiasis location: gallbladder and bile duct Cholecystitis presence: C Cholangitis presence: C Cholecystitis acuity: C Cholangitis acuity: C Biliary obstruction: B (3) Hepatic failure Status: Acute Qualifiers: Liver failure chronicity: L Hepatic coma status: H (4) Biliary obstruction Status: Acute (5) Leukocytosis Status: Acute Qualifiers: Leukocytosis type: L (6) Tobacco use Status: Chronic (7) Jaundice Status: Acute Core Measure Documentation - Palliative Care Palliative Care/ Comfort Measures: Not Applicable - Core Measures Any of the following diagnoses?: none Exam - Constitutional Vitals: Temp Pulse Resp BP Pulse Ox 97.2 F L 63 18 102/52 96 05/15/16 06:40 05/15/16 06:40 05/15/16 06:40 05/15/16 06:40 05/15/16 06:40 General appearance: Present: no acute distress, well-nourished, obese (morbidly obese) - EENT Eyes: Present: PERRL, EOM intact - Neck Neck: Present: supple, normal ROM - Respiratory Respiratory effort: normal Respiratory: bilateral: diminished, negative: rales, rhonchi, wheezing - Cardiovascular Rhythm: regular Heart Sounds: Present: S1 & S2 - Extremities Extremities: no ischemia, pulses intact, pulses symmetrical - Abdominal General gastrointestinal: Present: soft, non-tender, non-distended, normal bowel sounds - Integumentary Integumentary: Present: clear, warm - Musculoskeletal Musculoskeletal: strength equal bilaterally - Psychiatric Psychiatric: appropriate mood/affect, cooperative - Neurologic Neurologic: CNII-XII intact, moves all extremities Plan Activity: no restrictions Diet: other (soft diet advance as tolerated) Additional Instructions: If you have nausea vomiting abdominal pain contract MD or go to emergency room Follow up with: PRIMARY MD MELVINA [Primary Care Provider] - 7 Days BERNA ESPINOSA MD [Staff Physician] - 7 Days SUBHASH GORMAN MD [Staff Physician] - 7 Days Prescriptions: Amoxicillin/K Clav Tab [Augmentin 500 MG TAB] 1 each PO Q8HR #21 tablet Famotidine/Ca Carb/Mag Hydrox [Pepcid Complete Tablet Chew] 1 each PO BID #20 tab.chew oxyCODONE /ACETAMINOPHEN [Percocet 5/325 mg] 1 tab PO BID PRN #10 tablet PRN Reason: Pain, Moderate (4-6)
[2016-05-15] MEDS: NACL 0.9% 1000 ML 1,000 ML IV SCH (09:28)
[2016-05-15] MEDS: PROTONIX PO SCH (09:28)
[2016-05-15 09:34] LABS: Basophils % (Manual) 0 % (0.0-1.8); Blastocytes % (Manual) 0 %; Hypochromasia 1+; Large Platelets 1+; Target Cells 1+
[2016-05-15 09:35] LABS: Diff Status Complete; Giant Platelets Rare
[2016-05-15 14:11] VITALS: BP 125/83
--- NOTE | 2016-05-15 15:58 | Gastroenterology Progress Note ---
Assessment and Plan jaundice/biliary obstruction 2/2 likely from stones - s/p ERCP with sphincterotomy with stent placement. pt with retained food in the stomach during procedure, thus removal of stones and timing required was not possible due to aspiration risks. wbc normalized, vitals stable. okay for d/c with po antibiotics. f/u with GI as recommended by Dr Wiley. Subjective Date of service: 05/15/16 Principal diagnosis: jaundice, biliary obstruction, gallstones Interval history: pt denies new complaints today. abd pain slightly improved. no n/v or fevers. Objective - Exam Narrative Exam: Gen: morbidly obese, NAD CV: RRR Lungs: CTAB Abd: soft, mild lower abdomen ttp, no r/g, nd - Constitutional Vitals: Temp Pulse Resp BP Pulse Ox 97.7 F 60 18 125/83 95 05/15/16 14:07 05/15/16 14:07 05/15/16 14:07 05/15/16 14:07 05/15/16 14:07 - Labs CBC & Chem 7: 05/15/16 07:43 05/15/16 07:43 Labs: Laboratory Results - last 24 hr 05/15/16 05/15/16 07:43 07:43 WBC 10.5 RBC 4.35 Hgb 12.9 Hct 38.6 MCV 89 MCH 30 MCHC 34 RDW 17.0 H Plt Count 236 Add Manual Diff Complete Total Counted 100 Seg Neuts % (Manual) 73.0 H Band Neutrophils % 0 Lymphocytes % (Manual) 12.0 L Reactive Lymphs % (Man) 0 Monocytes % (Manual) 10.0 H Eosinophils % (Manual) 4.0 Basophils % (Manual) 0 Metamyelocytes % 1.0 Myelocytes % 0 Promyelocytes % 0 Blast Cells % 0 Nucleated RBC % Not Reportable Seg Neutrophils # Man 7.7 Band Neutrophils # 0.0 Lymphocytes # (Manual) 1.3 Abs React Lymphs (Man) 0.0 Monocytes # (Manual) 1.1 H Eosinophils # (Manual) 0.4 Basophils # (Manual) 0.0 Metamyelocytes # 0.1 Myelocytes # 0.0 Promyelocytes # 0.0 Blast Cells # 0.0 WBC Morphology Not Reportable Hypersegmented Neuts Not Reportable Hyposegmented Neuts Not Reportable Hypogranular Neuts Not Reportable Smudge Cells Not Reportable Toxic Granulation Not Reportable Toxic Vacuolation Not Reportable Dohle Bodies Not Reportable Pelger-Huet Anomaly Not Reportable Logan Rods Not Reportable Platelet Estimate Appears normal Clumped Platelets Not Reportable Plt Clumps, EDTA Not Reportable Large Platelets 1+ Giant Platelets Rare Platelet Satelliting Not Reportable Plt Morphology Comment Not Reportable RBC Morphology Not Reportable Dimorphic RBCs Not Reportable Polychromasia Not Reportable Hypochromasia 1+ Poikilocytosis Not Reportable Anisocytosis Not Reportable Microcytosis Not Reportable Macrocytosis Not Reportable Spherocytes Not Reportable Pappenheimer Bodies Not Reportable Sickle Cells Not Reportable Target Cells 1+ Tear Drop Cells Not Reportable Ovalocytes Not Reportable Helmet Cells Not Reportable Ivy-[place] Bodies Not Reportable [place] Rings Not Reportable [place] Cells Not Reportable Bite Cells Not Reportable Crenated Cell Not Reportable Elliptocytes Not Reportable Acanthocytes (Spur) Not Reportable Rouleaux Not Reportable Hemoglobin C Crystals Not Reportable Schistocytes Not Reportable Malaria parasites Not Reportable Abdirahman Bodies Not Reportable Hem Pathologist Commnt No Sodium 138 Potassium 3.8 Chloride 100.7 Carbon Dioxide 24 Anion Gap 17 BUN 5 L Creatinine < 0.2 L Estimated GFR > 60 BUN/Creatinine Ratio 25.00 Glucose 119 H Calcium 8.6 Total Bilirubin 16.3 H Direct Bilirubin 11.4 H Indirect Bilirubin 4.9 AST 39 ALT 45 Alkaline Phosphatase 473 H Total Protein 6.5 Albumin 2.9 L Albumin/Globulin Ratio 0.8 - Imaging CT scan: report reviewed Ultrasound: report reviewed
== END 2016-05-15 14:30 | disposition home or self-care (01) | DRG 445 ==
LOC: ED 16:55 → 3A 05-13 09:23
PROVIDERS: ADMIT Internal Medicine; ATTEND Internal Medicine
PROC: 0F798DZ Dilation of Common Bile Duct with Intraluminal Device, Via Natural or Artificial Opening Endoscopic (ICD-10-PCS; principal; 2016-05-14)
DX: K80.51 Calculus of bile duct without cholangitis or cholecystitis with obstruction (principal); Z68.43 Body mass index [BMI] 50.0-59.9, adult; E66.01 Morbid (severe) obesity due to excess calories; D72.829 Elevated white blood cell count, unspecified; F17.210 Nicotine dependence, cigarettes, uncomplicated; E80.6 Other disorders of bilirubin metabolism; Z71.6 Tobacco abuse counseling; Z82.49 Family history of ischemic heart disease and other diseases of the circulatory system
CPT/HCPCS: 36415; 71010; 74177; 74330; 76705; 80048; 80053; 80074; 81001; 82140; 82248; 83690; 83735; 85007; 85025; 85610; 85730; 93005; 93010; 93970; C1726; C2625; J2250; J2543; J2704; J3246; J3480; J7030; Q9967

== ENCOUNTER 2016-07-13 13:38 | Emergency (ER) | payer SELFPAY ==
[2016-07-13 14:25] VITALS: BP 145/83
--- NOTE | 2016-07-18 01:16 | ED Elopement Review ---
ED Pt Elopement review - Call Back decision Pt Call Back Decision: Pt to F/U with PMD (tachycardic but tearful during triage , needs repeat eval if sx continue, may return here if no pmd or sx severe)
== END 2016-07-13 21:10 | disposition left against medical advice (07) ==
LOC: ED 13:38
DX: M79.601 Pain in right arm (principal); R10.9 Unspecified abdominal pain; M79.604 Pain in right leg; Z53.21 Procedure and treatment not carried out due to patient leaving prior to being seen by health care provider

== ENCOUNTER 2017-10-19 20:16 | Inpatient (IN) | payer SELFPAY ==
[2017-10-19 20:59] LABS: Hematocrit 34.6 % (30.3-42.9); Hemoglobin 11.2 gm/dl (10.1-14.3); Mean Corpuscular HGB Conc 32 % (30-34); Mean Corpuscular Hemoglobin 28 pg (28-32); Mean Corpuscular Volume 87 fl (79-97); Platelet Count 585 K/mm3 (140-440); Red Blood Count 3.96 M/mm3 (3.65-5.03); Red Cell Distribution Width 14.3 % (13.2-15.2)
[2017-10-19] MEDS ORDERED: NACL 0.9% 1000 ML 1,000 ML IV ONE ×2 (21:03→23:46)
[2017-10-19] MEDS ORDERED: VANCOMYCIN 2,000 MG in NACL 0.9% 500 ML 500 ML IV ONE (21:11)
[2017-10-19] MEDS ORDERED: NACL 0.9% 1000 ML IV ONE (21:11)
--- NOTE | 2017-10-19 21:17 | Emergency Department Report ---
ED Abdominal Pain HPI - General Chief Complaint: Abdominal Pain Stated Complaint: ABDOMINAL PAIN Time Seen by Provider: 10/19/17 20:44 Source: patient, EMS Mode of arrival: Stretcher Limitations: Physical Limitation - History of Present Illness Initial Comments: Ms Casas is a 57 year-old woman with hx of biliary stenosis s/p stent placement in 2017 who presents from home with abdominal pain for three days. R lower and right upper abdominal pain. has a sore in her lower right abdomen. Has been incontinent of urine and stool for this time period as well. Some nausea, no vomiting. No chest pain. no shortness of breath. Denies fever. Lives with her children who she reports take care of her. has been able to walk until the last couple of days. Did manage to take a shower yesterday. no home meds. No allergies. Had blood in her stool or urine last month, no longer having. MD Complaint: abdominal pain - Related Data Previous Rx's Medication Instructions Recorded Last Taken Type Amoxicillin/K Clav Tab [Augmentin 1 each PO Q8HR #21 tablet 05/15/16 Unknown Rx 500 MG TAB] Famotidine/Ca Carb/Mag Hydrox 1 each PO BID #20 tab.chew 05/15/16 Unknown Rx [Pepcid Complete Tablet Chew] oxyCODONE /ACETAMINOPHEN [Percocet 1 tab PO BID PRN #10 tablet 05/15/16 Unknown Rx 5/325 mg] Allergies Allergy/AdvReac Type Severity Reaction Status Date / Time No Known Allergies Allergy Verified 07/13/16 14:25 ED Review of Systems ROS: Stated complaint: ABDOMINAL PAIN Other details as noted in HPI Comment: All other systems reviewed and negative Constitutional: no symptoms reported Respiratory: no symptoms reported. denies: cough, shortness of breath Cardiovascular: denies: chest pain, palpitations Gastrointestinal: abdominal pain, nausea, diarrhea. denies: vomiting, constipation Genitourinary: denies: dysuria Skin: change in color ED Past Medical Hx - Past Medical History Previous Medical History?: Yes Hx Hypertension: Yes Hx Congestive Heart Failure: No Hx Diabetes: No Hx Liver Disease: Yes (Biliary obstruction, jaundiced) Hx Arthritis: Yes Hx Asthma: Yes (Rarely requires inhaler for this or for COPD) Hx COPD: Yes Additional medical history: abd. pain, Leg swelling. morbid obesity - Surgical History Past Surgical History?: Yes Additional Surgical History: Oli carpel tunnel surgery - Social History Smoking Status: Current Every Day Smoker - Medications Home Medications: Home Medications Medication Instructions Recorded Confirmed Last Taken Type Amoxicillin/K Clav Tab [Augmentin 1 each PO Q8HR #21 tablet 05/15/16 Unknown Rx 500 MG TAB] Famotidine/Ca Carb/Mag Hydrox 1 each PO BID #20 tab.chew 05/15/16 Unknown Rx [Pepcid Complete Tablet Chew] oxyCODONE /ACETAMINOPHEN [Percocet 1 tab PO BID PRN #10 tablet 05/15/16 Unknown Rx 5/325 mg] ED Physical Exam - General Limitations: Physical Limitation General appearance: alert, in no apparent distress, obese, other (poor hygeine) - Head Head exam: Present: atraumatic, normocephalic - Eye Eye exam: Present: normal appearance, PERRL, EOMI. Absent: conjunctival injection - ENT ENT exam: Present: normal exam, mucous membranes moist - Neck Neck exam: Present: normal inspection. Absent: tenderness - Respiratory Respiratory exam: Present: normal lung sounds bilaterally. Absent: respiratory distress, wheezes, rales - Cardiovascular Cardiovascular Exam: Present: normal rhythm, tachycardia. Absent: systolic murmur, diastolic murmur, rubs, gallop - GI/Abdominal GI/Abdominal exam: Present: other (obese, bruising, possible abscess under R panus. TTP RUQ and epigastrium. not peritonitic) - Extremities Exam Extremities exam: Present: normal inspection - Neurological Exam Neurological exam: Present: alert, oriented X3. Absent: motor sensory deficit - Psychiatric Psychiatric exam: Present: normal affect, normal mood - Skin Skin exam: Present: warm, dry, intact, normal color, other (possible abscess R panus. bruising, no drainage. difficult to determine fluctuance in panus). Absent: rash ED Course Vital Signs 10/19/17 10/19/17 10/19/17 20:21 20:23 20:24 Temperature 98.6 F Pulse Rate 102 H Respiratory Rate Blood Pressure 94/40 O2 Sat by Pulse 92 94 Oximetry 10/19/17 10/19/17 10/19/17 20:26 20:34 20:36 Temperature 98.2 F Pulse Rate 111 H 109 H Respiratory 55 H 45 H Rate Blood Pressure 94/40 112/38 O2 Sat by Pulse 94 96 Oximetry 10/19/17 10/19/17 10/19/17 20:38 20:40 20:42 Temperature Pulse Rate 109 H 112 H 111 H Respiratory 53 H 30 H 37 H Rate Blood Pressure 112/38 112/38 112/38 O2 Sat by Pulse 97 97 97 Oximetry 10/19/17 10/19/17 10/19/17 20:44 20:46 20:48 Temperature Pulse Rate 114 H 109 H Respiratory 34 H 49 H 43 H Rate Blood Pressure 112/38 120/47 120/47 O2 Sat by Pulse 97 98 98 Oximetry 10/19/17 10/19/17 10/19/17 20:50 20:52 20:54 Temperature Pulse Rate 109 H 109 H 112 H Respiratory 35 H 33 H 25 H Rate Blood Pressure 120/47 120/47 120/47 O2 Sat by Pulse 99 98 99 Oximetry 10/19/17 10/19/17 10/19/17 20:56 20:58 21:00 Temperature Pulse Rate 113 H 116 H 110 H Respiratory 37 H 25 H 34 H Rate Blood Pressure 120/47 120/47 108/45 O2 Sat by Pulse 98 98 98 Oximetry 10/19/17 10/19/17 10/19/17 21:02 21:04 21:06 Temperature Pulse Rate 112 H 113 H 110 H Respiratory 46 H 35 H 41 H Rate Blood Pressure 108/45 108/45 108/45 O2 Sat by Pulse 97 96 98 Oximetry 10/19/17 10/19/17 10/19/17 21:08 21:10 21:12 Temperature Pulse Rate 109 H 110 H 110 H Respiratory 48 H 42 H 47 H Rate Blood Pressure 108/45 108/45 108/45 O2 Sat by Pulse 98 97 97 Oximetry 10/19/17 10/19/17 10/19/17 21:14 21:16 21:18 Temperature Pulse Rate 111 H 113 H 109 H Respiratory 26 H 27 H 42 H Rate Blood Pressure 108/45 114/43 114/43 O2 Sat by Pulse 98 97 97 Oximetry 10/19/17 10/19/17 10/19/17 21:20 21:22 21:24 Temperature Pulse Rate 112 H 111 H 116 H Respiratory 36 H 35 H 39 H Rate Blood Pressure 114/43 114/43 114/43 O2 Sat by Pulse 95 97 97 Oximetry 06/30/18 06/30/18 06/30/18 21:26 21:28 21:30 Temperature Pulse Rate 111 H 110 H 110 H Respiratory 36 H 43 H 32 H Rate Blood Pressure 114/43 114/43 132/36 O2 Sat by Pulse 97 96 96 Oximetry 10/19/17 10/19/17 10/19/17 21:32 21:34 21:36 Temperature Pulse Rate 108 H 108 H 108 H Respiratory 39 H 39 H 30 H Rate Blood Pressure 132/36 132/36 132/36 O2 Sat by Pulse 96 95 95 Oximetry 10/19/17 10/19/17 10/19/17 21:38 21:40 21:42 Temperature Pulse Rate 106 H 108 H 108 H Respiratory 38 H 47 H 48 H Rate Blood Pressure 132/36 132/36 132/36 O2 Sat by Pulse 97 97 96 Oximetry 10/19/17 10/19/17 10/19/17 21:44 21:46 21:48 Temperature Pulse Rate 108 H 106 H 110 H Respiratory 33 H 38 H 51 H Rate Blood Pressure 132/36 114/43 114/43 O2 Sat by Pulse 97 94 94 Oximetry 10/19/17 10/19/17 10/19/17 21:50 21:52 21:54 Temperature Pulse Rate 107 H 108 H 108 H Respiratory 31 H 35 H 48 H Rate Blood Pressure 114/43 114/43 114/43 O2 Sat by Pulse 93 95 95 Oximetry 10/19/17 10/19/17 10/19/17 21:56 21:58 22:00 Temperature Pulse Rate 110 H 107 H 108 H Respiratory 46 H 40 H 33 H Rate Blood Pressure 114/43 114/43 114/43 O2 Sat by Pulse 94 97 96 Oximetry 10/19/17 10/19/17 10/19/17 22:02 22:04 22:06 Temperature Pulse Rate 107 H 107 H 106 H Respiratory 38 H 34 H 40 H Rate Blood Pressure 109/39 109/39 109/39 O2 Sat by Pulse 96 97 98 Oximetry 10/19/17 10/19/17 10/19/17 22:08 22:10 22:12 Temperature Pulse Rate 108 H 106 H 106 H Respiratory 44 H 37 H 41 H Rate Blood Pressure 109/39 109/39 109/39 O2 Sat by Pulse 97 97 96 Oximetry 10/19/17 22:14 Temperature Pulse Rate 105 H Respiratory 43 H Rate Blood Pressure 109/39 O2 Sat by Pulse 93 Oximetry ED Medical Decision Making - Lab Data Result diagrams: 10/19/17 20:40 10/19/17 20:40 Lab Results 10/19/17 10/19/17 10/19/17 Range/Units 20:40 20:40 20:57 WBC 27.5 H (4.5-11.0) K/mm3 RBC 3.96 (3.65-5.03) M/mm3 Hgb 11.2 (10.1-14.3) gm/dl Hct 34.6 (30.3-42.9) % MCV 87 (79-97) fl MCH 28 (28-32) pg MCHC 32 (30-34) % RDW 14.3 (13.2-15.2) % Plt Count 585 H (140-440) K/mm3 Add Manual Diff Complete Total Counted 200 Seg Neutrophils % [place] Tender Helper Seg Neuts % (Manual) 94.0 H (40.0-70.0) % Band Neutrophils % 0 % Lymphocytes % (Manual) 3.5 L (13.4-35.0) % Reactive Lymphs % (Man) 0 % Monocytes % (Manual) 2.5 (0.0-7.3) % Eosinophils % (Manual) 0 (0.0-4.3) % Basophils % (Manual) 0 (0.0-1.8) % Metamyelocytes % 0 % Myelocytes % 0 % Promyelocytes % 0 % Blast Cells % 0 % Nucleated RBC % Not Reportable Seg Neutrophils # Man 25.9 H (1.8-7.7) K/mm3 Band Neutrophils # 0.0 K/mm3 Lymphocytes # (Manual) 1.0 L (1.2-5.4) K/mm3 Abs React Lymphs (Man) 0.0 K/mm3 Monocytes # (Manual) 0.7 (0.0-0.8) K/mm3 Eosinophils # (Manual) 0.0 (0.0-0.4) K/mm3 Basophils # (Manual) 0.0 (0.0-0.1) K/mm3 Metamyelocytes # 0.0 K/mm3 Myelocytes # 0.0 K/mm3 Promyelocytes # 0.0 K/mm3 Blast Cells # 0.0 K/mm3 WBC Morphology Not Reportable Hypersegmented Neuts Not Reportable Hyposegmented Neuts Not Reportable Hypogranular Neuts Not Reportable Smudge Cells Not Reportable Toxic Granulation Not Reportable Toxic Vacuolation Not Reportable Dohle Bodies Not Reportable Pelger-Huet Anomaly Not Reportable Logan Rods Not Reportable Platelet Estimate Consistent w auto Clumped Platelets Not Reportable Plt Clumps, EDTA Not Reportable Large Platelets Not Reportable Giant Platelets Not Reportable Platelet Satelliting Not Reportable Plt Morphology Comment Not Reportable RBC Morphology Normal Dimorphic RBCs Not Reportable Polychromasia Not Reportable Hypochromasia Not Reportable Poikilocytosis Not Reportable Anisocytosis Not Reportable Microcytosis Not Reportable Macrocytosis Not Reportable Spherocytes Not Reportable Pappenheimer Bodies Not Reportable Sickle Cells Not Reportable Target Cells Not Reportable Tear Drop Cells Not Reportable Ovalocytes Not Reportable Helmet Cells Not Reportable [place] Bodies Not Reportable [place] Rings Not Reportable [place] Cells Not Reportable Bite Cells Not Reportable Crenated Cell Not Reportable Elliptocytes Not Reportable Acanthocytes (Spur) Not Reportable Rouleaux Not Reportable Hemoglobin C Crystals Not Reportable Schistocytes Not Reportable Malaria parasites Not Reportable Abdirahman Bodies Not Reportable Hem Pathologist Commnt No Sodium 136 L (137-145) mmol/L Potassium 3.6 (3.6-5.0) mmol/L Chloride 98.3 (98-107) mmol/L Carbon Dioxide 26 (22-30) mmol/L Anion Gap 15 mmol/L BUN 15 (7-17) mg/dL Creatinine 0.3 L (0.7-1.2) mg/dL Estimated GFR > 60 ml/min BUN/Creatinine Ratio 50 % Glucose 106 H (65-100) mg/dL Lactic Acid (0.7-2.0) mmol/L Calcium 7.9 L (8.4-10.2) mg/dL Total Bilirubin 0.90 (0.1-1.2) mg/dL AST 18 (5-40) units/L ALT 13 (7-56) units/L Alkaline Phosphatase 272 H (35-129) units/L Troponin T (0.00-0.029) ng/mL NT-Pro-B Natriuret Pep (0-900) pg/mL Total Protein 6.2 L (6.3-8.2) g/dL Albumin 1.8 L (3.9-5) g/dL Albumin/Globulin Ratio 0.4 % Lipase 4 L (13-60) units/L Urine Color [place] (Yellow) Urine Turbidity Clear (Clear) Urine pH 6.0 (5.0-7.0) Ur Specific [place] 1.019 (1.003-1.030) Urine Protein <15 mg/dl (Negative) mg/dL Urine Glucose (UA) Neg (Negative) mg/dL Urine Ketones Tr (Negative) mg/dL Urine Blood Neg (Negative) Urine Nitrite Neg (Negative) Urine Bilirubin Neg (Negative) Urine Urobilinogen 4.0 (<2.0) mg/dL Ur Leukocyte Esterase Neg (Negative) Urine WBC (Auto) 3.0 (0.0-6.0) /HPF Urine RBC (Auto) 5.0 (0.0-6.0) /HPF U Epithel Cells (Auto) < 1.0 (0-13.0) /HPF Urine Mucus Few /HPF 10/19/17 10/19/17 10/19/17 Range/Units 21:12 21:16 21:35 WBC (4.5-11.0) K/mm3 RBC (3.65-5.03) M/mm3 Hgb (10.1-14.3) gm/dl Hct (30.3-42.9) % MCV (79-97) fl MCH (28-32) pg MCHC (30-34) % RDW (13.2-15.2) % Plt Count (140-440) K/mm3 Add Manual Diff Total Counted Seg Neutrophils % Seg Neuts % (Manual) (40.0-70.0) % Band Neutrophils % % Lymphocytes % (Manual) (13.4-35.0) % Reactive Lymphs % (Man) % Monocytes % (Manual) (0.0-7.3) % Eosinophils % (Manual) (0.0-4.3) % Basophils % (Manual) (0.0-1.8) % Metamyelocytes % % Myelocytes % % Promyelocytes % % Blast Cells % % Nucleated RBC % Seg Neutrophils # Man (1.8-7.7) K/mm3 Band Neutrophils # K/mm3 Lymphocytes # (Manual) (1.2-5.4) K/mm3 Abs React Lymphs (Man) K/mm3 Monocytes # (Manual) (0.0-0.8) K/mm3 Eosinophils # (Manual) (0.0-0.4) K/mm3 Basophils # (Manual) (0.0-0.1) K/mm3 Metamyelocytes # K/mm3 Myelocytes # K/mm3 Promyelocytes # K/mm3 Blast Cells # K/mm3 WBC Morphology Hypersegmented Neuts Hyposegmented Neuts Hypogranular Neuts Smudge Cells Toxic Granulation Toxic Vacuolation Dohle Bodies Pelger-Huet Anomaly Logan Rods Platelet Estimate Clumped Platelets Plt Clumps, EDTA Large Platelets Giant Platelets Platelet Satelliting Plt Morphology Comment RBC Morphology Dimorphic RBCs Polychromasia Hypochromasia Poikilocytosis Anisocytosis Microcytosis Macrocytosis Spherocytes Pappenheimer Bodies Sickle Cells Target Cells Tear Drop Cells Ovalocytes Helmet Cells [place] Bodies [place] Rings [place] Cells Bite Cells Crenated Cell Elliptocytes Acanthocytes (Spur) Rouleaux Hemoglobin C Crystals Schistocytes Malaria parasites Abdirahman Bodies Hem Pathologist Commnt Sodium (137-145) mmol/L Potassium (3.6-5.0) mmol/L Chloride (98-107) mmol/L Carbon Dioxide (22-30) mmol/L Anion Gap mmol/L BUN (7-17) mg/dL Creatinine (0.7-1.2) mg/dL Estimated GFR ml/min BUN/Creatinine Ratio % Glucose (65-100) mg/dL Lactic Acid 1.70 (0.7-2.0) mmol/L Calcium (8.4-10.2) mg/dL Total Bilirubin (0.1-1.2) mg/dL AST (5-40) units/L ALT (7-56) units/L Alkaline Phosphatase (35-129) units/L Troponin T < 0.010 (0.00-0.029) ng/mL NT-Pro-B Natriuret Pep 307.7 (0-900) pg/mL Total Protein (6.3-8.2) g/dL Albumin (3.9-5) g/dL Albumin/Globulin Ratio % Lipase (13-60) units/L Urine Color (Yellow) Urine Turbidity (Clear) Urine pH (5.0-7.0) Ur Specific [place] (1.003-1.030) Urine Protein (Negative) mg/dL Urine Glucose (UA) (Negative) mg/dL Urine Ketones (Negative) mg/dL Urine Blood (Negative) Urine Nitrite (Negative) Urine Bilirubin (Negative) Urine Urobilinogen (<2.0) mg/dL Ur Leukocyte Esterase (Negative) Urine WBC (Auto) (0.0-6.0) /HPF Urine RBC (Auto) (0.0-6.0) /HPF U Epithel Cells (Auto) (0-13.0) /HPF Urine Mucus /HPF - Radiology Data Radiology results: report reviewed, image reviewed COMPARISON: Prior CT scan abdomen and pelvis 05/13/2016 FINDINGS: Lower Lung [place]: Breathing motion artifact degrades image quality. No gross abnormality is seen. Upper Abdomen: Gallbladder is contracted. There is heterogeneous increased density within the gallbladder. There appear to be gallstones present. Intrahepatic ducts remain mildly distended. This is unchanged. There is a stent visualized extending from the common bile duct into the duodenum. Common bile duct remains distended. The pancreas showed no focal abnormalities. The spleen is not enlarged. The right adrenal gland appears normal. Nodular density again visualized in the left adrenal gland unchanged in size with a density of only 14 Hounsfield units. I suspect this represents an adrenal adenoma given low density after contrast and stable size.. Kidneys, Ureters and Urinary bladder: There appear to be small nonobstructing calculi in the upper 3rd of both kidneys. No ureteral calculi are visualized. Samuels catheter is seen in the urinary bladder which is nearly empty. No gross abnormality is seen. Retroperitoneum: Atherosclerotic changes are seen in the abdominal aorta and iliac arteries.. No aneurysm is visualized. Nonspecific subcentimeter lymph nodes are seen in the retroperitoneum. No pathologically enlarged lymph nodes are identified. Bowel: Bowel loops are unremarkable. No evidence of bowel obstruction or ascites. There is no free intraperitoneal gas. Reproductive organs: Uterus and adnexa are unremarkable. Other: No acute bony abnormalities are seen. There is a large fluid in gas collections seen in the soft tissues lateral aspect right side of the mid abdomen extending inferiorly. Site of the fluid and gas collection best visualized on coronal images although the fluid in gas properties are best visualized on the axial images... This extends to the lateral abdominal wall although does not appear to extend into the peritoneal cavity. This measures at least 13.7 centimeter anterior to posterior transverse at least 15 centimeters although the lateral aspect of the fluid collection is not included on this exam. This extends craniocaudal 20 centimeters. Moderate size umbilical hernia containing adipose tissue is visualized. IMPRESSION: Large fluid in gas collection seen lateral aspect right mid abdomen subcutaneous tissues extending inferiorly towards the pelvis suggesting an abscess. There is a stent visualized in the common bile duct extending into the duodenum. Cholelithiasis is suspected. There is stable mild intrahepatic bile duct dilatation. Small nonobstructing calculi seen in the upper 3rd of both kidneys which are otherwise unremarkable. Stable small left adrenal nodule suggesting an adrenal adenoma. Moderate-sized umbilical hernia present containing adipose tissue as described. No herniated loops of bowel are seen. - Medical Decision Making Ms oviedo is a 57 year-old woman who presents with abdominal pain. Denies fever, cough, chest pain. Biliary stent, otherwise no PMH. Poor hygiene. Exam with likely skin infection under R pannus. Also with RUQ ttp. Given history of biliary stent and obesity related comlpications on exam, ordered CT to eval both RUQ and R abdominal wall. Tachycardic, likely source of infection. Starting fluids and braod spectrum abx. lactic negative. Patient appears to have sepsis. WBC elevated. Lytes anc Cr wnl. CT reveals large abdominal wall abscess. Spoke with surgery, Chela, who will see patient in the morning. Admit to medicine for fluids, abx ans surgery consult. received 1 L NS with EMS. we have given 2L for a 3L bolus. Critical care attestation.: If time is entered above; I have spent that time in minutes in the direct care of this critically ill patient, excluding procedure time. ED Disposition Clinical Impression: Abdominal wall abscess Sepsis Qualifiers: Sepsis type: sepsis due to unspecified organism Qualified Code(s): A41.9 - Sepsis, unspecified organism Disposition: OP ADMIT IP TO THIS HOSP Is pt being admited?: Yes Condition: Stable Instructions: Abdominal Pain (ED) Referrals: PRIMARY CARE, [Primary Care Provider] - 3-5 Days
[2017-10-19 21:23] LABS: Bilirubin,Urine NEG (Negative); Blood,Urine NEG (Negative); Color,Urine Amber (Yellow); Mucus,Urine FEW /HPF; Protein,Urine <15 mg/dL mg/dL (Negative)
[2017-10-19 21:30] LABS: Alanine Aminotransferase 13 units/L (7-56); Albumin 1.8 g/dL (3.9-5); BUN/Creatinine Ratio 50; Basophils % (Manual) 0 % (0.0-1.8); Blood Urea Nitrogen 15 mg/dL (7-17); Calcium 7.9 mg/dL (8.4-10.2); Eosinophils % (Manual) 0 % (0.0-4.3); Hemolysis Index 1; Lipase 4 units/L (13-60); Monocytes % (Manual) 2.5 % (0.0-7.3); Total Cells Counted 200
[2017-10-19 21:31] LABS: Platelet Estimate Consistent w Auto; RBC Morphology Normal
[2017-10-19] MEDS ORDERED: VANCOMYCIN PHARMACY TO DOSE IV SCH (22:00)
[2017-10-19] MEDS: ZOSYN/NS 4.5GM/100ML 4.5 GM/100 ML VIAL IV SCH (22:00)
--- NOTE | 2017-10-19 23:26 | Cat Scan Report ---
FINAL REPORT PROCEDURE: CT ABDOMEN PELVIS W CON TECHNIQUE: Computerized axial tomography of the abdomen and pelvis was performed after the IV injection of iodinated nonionic contrast. HISTORY: abdominal pain COMPARISON: Prior CT scan abdomen and pelvis 05/13/2016 FINDINGS: Lower Lung [place]: Breathing motion artifact degrades image quality. No gross abnormality is seen. Upper Abdomen: Gallbladder is contracted. There is heterogeneous increased density within the gallbladder. There appear to be gallstones present. Intrahepatic ducts remain mildly distended. This is unchanged. There is a stent visualized extending from the common bile duct into the duodenum. Common bile duct remains distended. The pancreas showed no focal abnormalities. The spleen is not enlarged. The right adrenal gland appears normal. Nodular density again visualized in the left adrenal gland unchanged in size with a density of only 14 Hounsfield units. I suspect this represents an adrenal adenoma given low density after contrast and stable size.. Kidneys, Ureters and Urinary bladder: There appear to be small nonobstructing calculi in the upper 3rd of both kidneys. No ureteral calculi are visualized. Samuels catheter is seen in the urinary bladder which is nearly empty. No gross abnormality is seen. Retroperitoneum: Atherosclerotic changes are seen in the abdominal aorta and iliac arteries.. No aneurysm is visualized. Nonspecific subcentimeter lymph nodes are seen in the retroperitoneum. No pathologically enlarged lymph nodes are identified. Bowel: Bowel loops are unremarkable. No evidence of bowel obstruction or ascites. There is no free intraperitoneal gas. Reproductive organs: Uterus and adnexa are unremarkable. Other: No acute bony abnormalities are seen. There is a large fluid in gas collections seen in the soft tissues lateral aspect right side of the mid abdomen extending inferiorly. Site of the fluid and gas collection best visualized on coronal images although the fluid in gas properties are best visualized on the axial images... This extends to the lateral abdominal wall although does not appear to extend into the peritoneal cavity. This measures at least 13.7 centimeter anterior to posterior transverse at least 15 centimeters although the lateral aspect of the fluid collection is not included on this exam. This extends craniocaudal 20 centimeters. Moderate size umbilical hernia containing adipose tissue is visualized. IMPRESSION: Large fluid in gas collection seen lateral aspect right mid abdomen subcutaneous tissues extending inferiorly towards the pelvis suggesting an abscess. There is a stent visualized in the common bile duct extending into the duodenum. Cholelithiasis is suspected. There is stable mild intrahepatic bile duct dilatation. Small nonobstructing calculi seen in the upper 3rd of both kidneys which are otherwise unremarkable. Stable small left adrenal nodule suggesting an adrenal adenoma. Moderate-sized umbilical hernia present containing adipose tissue as described. No herniated loops of bowel are seen.
[2017-10-20] MEDS ORDERED: MORPHINE IV PRN (00:14)
[2017-10-20] MEDS ORDERED: TYLENOL PO PRN (00:14)
[2017-10-20] MEDS ORDERED: ZOFRAN IV PRN (00:14)
--- NOTE | 2017-10-20 00:25 | History and Physical Report ---
History of Present Illness Date of examination: 10/20/17 History of present illness: 57-year-old woman s/p biliary stent for obstructive jaundice comes to the ER for evaluation of abdominal pain. Pain is in the right lower abdomen, which she described as sharp pain, constant, intensity 8/10, radiating to the back, she cannot identify exacerbating or relieving factors. she admits to diarrhea for 1 week. non bloody, no fever or chills Review Of Systems: Constitutional: no weight loss Ears, eyes, nose, mouth and throat: no nasal congestion, no nasal discharge, no sinus pressure, blurry vision, diplopia Neck: No neck pain or rigidity. Cardiovascular:no orthopnea, palpitations Respiratory: No cough, shortness of breath Gastrointestinal: no hematochezia Genitourinary : no dysuria, frequency , hematuria Musculoskeletal: no muscle ache Integumentary: no rash, no pruritis Neurological: no parathesias, focal weakness Endocrine: no cold or heat intolerance, no polyuria or polydipsia Hematologic/Lymphatic: no easy bruising, no easy bleeding, no gland swelling Allergic/Immunologic: no urticaria, no angioedema. PAST MEDICAL HISTORY: None PAST SURGICAL HISTORY: carpal tunnel release SOCIAL HISTORY: Denies no alcohol or drug use, smoke 1 pack.week FAMILY HISTORY: Hypertension Medications and Allergies Allergies Allergy/AdvReac Type Severity Reaction Status Date / Time No Known Allergies Allergy Verified 07/13/16 14:25 Home Medications Medication Instructions Recorded Confirmed Last Taken Type Amoxicillin/K Clav Tab [Augmentin 1 each PO Q8HR #21 tablet 05/15/16 Unknown Rx 500 MG TAB] Famotidine/Ca Carb/Mag Hydrox 1 each PO BID #20 tab.chew 05/15/16 Unknown Rx [Pepcid Complete Tablet Chew] oxyCODONE /ACETAMINOPHEN [Percocet 1 tab PO BID PRN #10 tablet 05/15/16 Unknown Rx 5/325 mg] Active Meds: Active Medications Acetaminophen (Tylenol) 650 mg PO Q4H PRN PRN Reason: Pain MILD(1-3)/Fever >100.5/GALLE[place] Enoxaparin Sodium (Lovenox) 30 mg SUB-Q QDAY DEX Piperacillin Sod/Tazobactam Sod (Zosyn/Ns 4.5gm/100ml) 4.5 gm in 100 mls @ 200 mls/hr IV Q8HR DEX; Protocol Last Admin: 10/19/17 22:00 Dose: 200 mls/hr Sodium Chloride (Nacl 0.9% 1000 Ml) 1,000 mls @ 999 mls/hr IV BOLUS ONE Stop: 10/20/17 00:46 Last Admin: 10/20/17 00:12 Dose: 999 mls/hr Sodium Chloride (Nacl 0.9% 1000 Ml) 1,000 mls @ 100 mls/hr IV DIRECT DEX Morphine Sulfate (Morphine) 2 mg IV Q4H PRN PRN Reason: Pain, Moderate (4-6) Ondansetron HCl (Zofran) 4 mg IV Q8H PRN PRN Reason: Nausea And Vomiting Sodium Chloride (Sodium Chloride Flush Syringe 10 Ml) 10 ml IV BID DEX Sodium Chloride (Sodium Chloride Flush Syringe 10 Ml) 10 ml IV PRN PRN PRN Reason: LINE FLUSH Vancomycin HCl (Vancomycin Pharmacy To Dose) 1 each IV PKCONSULT DEX Exam - Physical Exam Narrative exam: Gen. appearance: Patient lying in bed, no apparent distress HEENT: Normocephalic, atraumatic, pupils equally round and reactive to light, eyes are , extraocular movement intact, and no sclericterus,. No JVD or thyromegaly or nodule,neck supple, no carotid bruit ,mucous membranes dry, no exudate or erythema Heart: S1, S2, regular rate and rhythm Lungs: Clear bilaterally, breathing comfortable Abdomen: Positive bowel sounds, nontender, nondistended, no organomegaly Extremity:no edema cyanosis, clubbing Neuro: Oriented 3, cranial nerves II-12 intact, speech is fluent, motor and sensory intact - Constitutional Vitals: Temp Pulse Resp BP Pulse Ox 98.2 F 105 H 43 H 109/39 93 10/19/17 20:34 10/19/17 22:14 10/19/17 22:14 10/19/17 22:14 10/19/17 22:14 Results - Labs CBC & Chem 7: 10/19/17 20:40 10/19/17 20:40 Labs: Abnormal lab results 10/19/17 10/19/17 Range/Units 20:40 20:40 WBC 27.5 H (4.5-11.0) K/mm3 Plt Count 585 H (140-440) K/mm3 Seg Neuts % (Manual) 94.0 H (40.0-70.0) % Lymphocytes % (Manual) 3.5 L (13.4-35.0) % Seg Neutrophils # Man 25.9 H (1.8-7.7) K/mm3 Lymphocytes # (Manual) 1.0 L (1.2-5.4) K/mm3 Sodium 136 L (137-145) mmol/L Creatinine 0.3 L (0.7-1.2) mg/dL Glucose 106 H (65-100) mg/dL Calcium 7.9 L (8.4-10.2) mg/dL Alkaline Phosphatase 272 H (35-129) units/L Total Protein 6.2 L (6.3-8.2) g/dL Albumin 1.8 L (3.9-5) g/dL Lipase 4 L (13-60) units/L - Imaging and Cardiology CT scan - abdomen: report reviewed CT scan - pelvis: report reviewed Assessment and Plan Assessment Sepsis Abdominal Abscess Diarrhea Morbid Obesity PLan Admit to [facility] Start IV fluid, zosyn, follow cultures Obtain cdiff, stool cultures IV morphine, consult surgery DVT prophalaxis
[2017-10-20] MEDS: NACL 0.9% 1000 ML 1,000 ML IV SCH ×2 (02:08→20:36)
[2017-10-20] MEDS: ZOSYN/NS 4.5GM/100ML 4.5 GM/100 ML VIAL IV SCH ×3 (06:13→22:38)
[2017-10-20] MEDS: VANCOMYCIN 2,000 MG in NACL 0.9% 500 ML 500 ML IV SCH ×2 (10:44→23:10)
[2017-10-20 11:08] LABS: Hematocrit 33.5 % (30.3-42.9); Hemoglobin 10.5 gm/dl (10.1-14.3); Mean Corpuscular HGB Conc 31 % (30-34); Mean Corpuscular Hemoglobin 28 pg (28-32); Mean Corpuscular Volume 89 fl (79-97); Platelet Count 500 K/mm3 (140-440); Red Blood Count 3.76 M/mm3 (3.65-5.03); Red Cell Distribution Width 14.9 % (13.2-15.2)
[2017-10-20 12:39] LABS: Band Neutrophils # (Manual) 2.3 K/mm3; Basophils % (Manual) 0 % (0.0-1.8); Eosinophils % (Manual) 0 % (0.0-4.3); Platelet Estimate Consistent w Auto; Total Cells Counted 200
[2017-10-20 12:40] LABS: Smudge Cells Few; Toxic Granulation Few
--- NOTE | 2017-10-20 13:19 | Consultation ---
History of Present Illness Consult date: 10/20/17 Chief complaint: abscess - History of present illness History of present illness: 57 yo morbidly obese F with hx of COPD presents with 3 day hx of worsening RLQ abdominal pain and swelling of her pannus. The patient states she usually feels gas in her abdomen and when it is backed up will get similar pain. However, this time the pain continued to get worse. It is sharp in nature. It does not radiate. The area has been draining brown fluid and per nursing notes there is a small opening over which a colostomy appliance was placed. She states she always has low grade fevers. No n/v. No CP, SOB. The patient states that it is difficult for her to ambulate due to vascular issues in her legs. She lives with her daughter, her daughter's fiance. She drinks a lot of water but does not really eat much food. She is having diarrhea. Past History Past Medical History: COPD, other (morbid obesity, choledocolithiasis) Past Surgical History: Other (ERCP with stent placement) Social history: single, lives with family. denies: smoking, alcohol abuse, prescription drug abuse Family history: no significant family history Medications and Allergies Allergies Allergy/AdvReac Type Severity Reaction Status Date / Time No Known Allergies Allergy Verified 07/13/16 14:25 Home Medications Medication Instructions Recorded Confirmed Last Taken Type Amoxicillin/K Clav Tab [Augmentin 1 each PO Q8HR #21 tablet 05/15/16 Unknown Rx 500 MG TAB] Famotidine/Ca Carb/Mag Hydrox 1 each PO BID #20 tab.chew 05/15/16 Unknown Rx [Pepcid Complete Tablet Chew] oxyCODONE /ACETAMINOPHEN [Percocet 1 tab PO BID PRN #10 tablet 05/15/16 Unknown Rx 5/325 mg] Active Meds: Active Medications Acetaminophen (Tylenol) 650 mg PO Q4H PRN PRN Reason: Pain MILD(1-3)/Fever >100.5/[place] Enoxaparin Sodium (Lovenox) 40 mg SUB-Q QDAY DEX Piperacillin Sod/Tazobactam Sod (Zosyn/Ns 4.5gm/100ml) 4.5 gm in 100 mls @ 200 mls/hr IV Q8HR DEX; Protocol Last Admin: 10/20/17 06:13 Dose: 200 mls/hr Sodium Chloride (Nacl 0.9% 1000 Ml) 1,000 mls @ 100 mls/hr IV DIRECT DEX Last Admin: 10/20/17 02:08 Dose: 100 mls/hr Vancomycin HCl 2,000 mg/ (Sodium Chloride) 520 mls @ 250 mls/hr IV Q12HR DEX Last Admin: 10/20/17 10:44 Dose: 250 mls/hr Sodium Chloride (Nacl 0.9% 1000 Ml) 1,000 mls @ 125 mls/hr IV DIRECT DEX Morphine Sulfate (Morphine) 2 mg IV Q4H PRN PRN Reason: Pain, Moderate (4-6) Ondansetron HCl (Zofran) 4 mg IV Q8H PRN PRN Reason: Nausea And Vomiting Sodium Chloride (Sodium Chloride Flush Syringe 10 Ml) 10 ml IV BID DEX Sodium Chloride (Sodium Chloride Flush Syringe 10 Ml) 10 ml IV PRN PRN PRN Reason: LINE FLUSH Vancomycin HCl (Vancomycin Pharmacy To Dose) 1 each IV PKCONSULT DEX Review of Systems All systems: negative (10 pt ROS performed and negative except for that listed in HPI) Exam Vital Signs Temp Pulse 98.6 F 102 H 10/19/17 20:21 10/19/17 20:21 Narrative exam: Gen: AAOx3. NAD CV: S1, S2+ resp: even and unlabored Abd: soft, morbidly obese, ND. R lower abdomen below large panus there is a colostomy appliance over an area draining brown fluid. The pannus is edematous, indurated and tender to palpation. Due to body habitus, I cannot palpate a particular area of fluctuance. Ext: no c/c/e Results - Labs 10/20/17 10:20 10/19/17 20:40 Abnormal lab results 10/19/17 10/19/17 10/20/17 Range/Units 20:40 20:40 10:20 WBC 27.5 H 22.8 H (4.5-11.0) K/mm3 Plt Count 585 H 500 H (140-440) K/mm3 Seg Neuts % (Manual) 94.0 H 76.5 H (40.0-70.0) % Lymphocytes % (Manual) 3.5 L 7.0 L (13.4-35.0) % Seg Neutrophils # Man 25.9 H 17.4 H (1.8-7.7) K/mm3 Lymphocytes # (Manual) 1.0 L (1.2-5.4) K/mm3 Monocytes # (Manual) 0.9 H (0.0-0.8) K/mm3 Sodium 136 L (137-145) mmol/L Creatinine 0.3 L (0.7-1.2) mg/dL Glucose 106 H (65-100) mg/dL Calcium 7.9 L (8.4-10.2) mg/dL Alkaline Phosphatase 272 H (35-129) units/L Total Protein 6.2 L (6.3-8.2) g/dL Albumin 1.8 L (3.9-5) g/dL Lipase 4 L (13-60) units/L Diabetes panel 10/19/17 Range/Units 20:40 Sodium 136 L (137-145) mmol/L Potassium 3.6 (3.6-5.0) mmol/L Chloride 98.3 (98-107) mmol/L Carbon Dioxide 26 (22-30) mmol/L BUN 15 (7-17) mg/dL Creatinine 0.3 L (0.7-1.2) mg/dL Glucose 106 H (65-100) mg/dL Calcium 7.9 L (8.4-10.2) mg/dL AST 18 (5-40) units/L ALT 13 (7-56) units/L Alkaline Phosphatase 272 H (35-129) units/L Total Protein 6.2 L (6.3-8.2) g/dL Albumin 1.8 L (3.9-5) g/dL Calcium panel 10/19/17 Range/Units 20:40 Calcium 7.9 L (8.4-10.2) mg/dL Albumin 1.8 L (3.9-5) g/dL Pituitary panel 10/19/17 Range/Units 20:40 Sodium 136 L (137-145) mmol/L Potassium 3.6 (3.6-5.0) mmol/L Chloride 98.3 (98-107) mmol/L Carbon Dioxide 26 (22-30) mmol/L BUN 15 (7-17) mg/dL Creatinine 0.3 L (0.7-1.2) mg/dL Glucose 106 H (65-100) mg/dL Calcium 7.9 L (8.4-10.2) mg/dL Adrenal panel 10/19/17 Range/Units 20:40 Sodium 136 L (137-145) mmol/L Potassium 3.6 (3.6-5.0) mmol/L Chloride 98.3 (98-107) mmol/L Carbon Dioxide 26 (22-30) mmol/L BUN 15 (7-17) mg/dL Creatinine 0.3 L (0.7-1.2) mg/dL Glucose 106 H (65-100) mg/dL Calcium 7.9 L (8.4-10.2) mg/dL Total Bilirubin 0.90 (0.1-1.2) mg/dL AST 18 (5-40) units/L ALT 13 (7-56) units/L Alkaline Phosphatase 272 H (35-129) units/L Total Protein 6.2 L (6.3-8.2) g/dL Albumin 1.8 L (3.9-5) g/dL - Imaging CT scan - abdomen: report reviewed, image reviewed CT scan - pelvis: report reviewed, image reviewed Assessment and Plan 57 yo morbidly obese female with 1. large abscess of R lower abdominal wall/pannus 2. severe protein calorie malnutrition I spoke with nursing this am approximately 9 am to ensure patient was NPO. Unfortunately the patient was placed on a regular diet and has started eating breakfast. The patient was promptly made NPO. I discussed with anesthesia, and the patient will need to be NPO for at least 6 hours before undergoing any surgical procedure requiring anesthesia. Due to the size and location of the abscess as well as the patient's body habitus, it will be impossible to drain it adequately at the bedside. Therefore, this needs to be performed in the OR. 1. NPO 2. IVF 3. IV abx - on vanco and zosyn 4. trend WBC - improving 5. DVT PPx 6. OR today for I&D of abdominal wall abscess - all risks, benefits, and alternatives were discussed with patient and consent obtained 7. nutrition consult 8. wound care consult 9. Case management consult - the patient is unfunded. She will need a wound vac and wound care follow up as outpatient. Thank you for this consultation, please call with questions or concerns
[2017-10-20] MEDS: LOVENOX SUB-Q SCH (13:20)
[2017-10-20] MEDS: SODIUM CHLORIDE FLUSH SYRINGE 10 ML IV SCH ×2 (13:21→23:10)
[2017-10-20] MEDS: SODIUM CHLORIDE FLUSH SYRINGE 10 ML IV PRN (13:21)
--- NOTE | 2017-10-20 15:26 | Anesthesia Consultation ---
Anesthesia Consult and Med Hx Date of service: 10/20/17 - Airway Anesthetic Teeth Evaluation: Poor ROM Head & Neck: Adequate Mental/Hyoid Distance: Adequate Mallampati Class: Class III Intubation Access Assessment: Possibly Difficult - Pre-Operative Health Status ASA Pre-Surgery Classification: ASA3 Proposed Anesthetic Plan: General - Pulmonary Hx Smoking: Yes (1 1/2 packs per day since 1973) Hx Asthma: Yes (Rarely requires inhaler for this or for COPD) COPD: Yes Hx Pneumonia: No - Cardiovascular System Hx Hypertension: Yes (no meds) - Central Nervous System Hx Psychiatric Problems: No - Endocrine Hx End Stage Renal Disease: No Hx Liver Disease: Yes (h/o Biliary obstruction, jaundiced, s/p ERCP 2016) - Other Systems Hx Cancer: No Hx Obesity: Yes (BMI-52.3) - Additional Comments Anesthesia Medical History Comments: Abdominal wall abcess
--- NOTE | 2017-10-20 15:27 | Anesthesia Day of Surgery ---
Anesthesia Day of Surgery - Day of Surgery Patient Examined: Yes Patient H&P Reviewed: Yes Patient is NPO: Yes (since 8AM)
[2017-10-20] MEDS ORDERED: QUELICIN ONE (15:34)
[2017-10-20] MEDS ORDERED: ZEMURON IV ONE (15:34)
[2017-10-20] MEDS ORDERED: DILAUDID ONE (15:34)
[2017-10-20] MEDS ORDERED: DIPRIVAN 10 MG/ML IV ONE (15:34)
[2017-10-20] MEDS ORDERED: XYLOCAINE MPF 2% ONE (15:34)
[2017-10-20] MEDS ORDERED: NACL 0.9% 1000 ML 1,000 ML ONE ×2 (15:48→16:56)
[2017-10-20] MEDS ORDERED: NEO SYNEPHRINE/NS Syringe(OR USE) IV ONE (16:12)
[2017-10-20] MEDS ORDERED: ROBINUL ONE (16:59)
[2017-10-20] MEDS ORDERED: BLOXIVERZ ONE (17:00)
--- NOTE | 2017-10-20 17:31 | Post Operative Note ---
Date of procedure: 10/20/17 Pre-op diagnosis: abdominal wall abscess Post-op diagnosis: other (abdominal wall necrotizing fasciitis) Findings: 35cm (w) x 6 cm (l) x 15 cm (d) abscess cavity. Deep border is fascia, some of which was necrotic and excised. Most of the subcutaneous fat had already undergone liquefaction necrosis. Procedure: excisional debridement of necrotic skin, subcutaneous tissue, and fascia of abdominal wall Anesthesia: KARLEE Surgeon: MYNOR FLORES Estimated blood loss: 50-100ml Pathology: list (cultures) Specimen disposition: to lab Condition: stable Disposition: ICU (for close monitoring overnight)
[2017-10-21] MEDS: NACL 0.9% 1000 ML 1,000 ML IV SCH ×2 (03:08→11:34)
[2017-10-21 06:01] LABS: Hemoglobin 9.5 gm/dl (10.1-14.3); Mean Corpuscular HGB Conc 32 % (30-34); Mean Corpuscular Hemoglobin 28 pg (28-32); Mean Corpuscular Volume 90 fl (79-97); Platelet Count 459 K/mm3 (140-440); Red Blood Count 3.34 M/mm3 (3.65-5.03); Red Cell Distribution Width 15.2 % (13.2-15.2)
[2017-10-21 06:27] LABS: BUN/Creatinine Ratio 37; Blood Urea Nitrogen 11 mg/dL (7-17); Calcium 7.2 mg/dL (8.4-10.2); Hemolysis Index 2
[2017-10-21] MEDS: ZOSYN/NS 4.5GM/100ML 4.5 GM/100 ML VIAL IV SCH ×3 (06:31→22:15)
[2017-10-21 06:59] LABS: Band Neutrophils # (Manual) 2.7 K/mm3; Basophils % (Manual) 0 % (0.0-1.8); Eosinophils % (Manual) 0 % (0.0-4.3); Myelocytes # (Manual) 0.1 K/mm3; Total Cells Counted 200
[2017-10-21 07:00] LABS: Platelet Estimate Consistent w Auto
[2017-10-21] MEDS: SODIUM CHLORIDE FLUSH SYRINGE 10 ML IV SCH (10:54)
[2017-10-21] MEDS: LOVENOX SUB-Q SCH (10:54)
[2017-10-21] MEDS: VANCOMYCIN 2,000 MG in NACL 0.9% 500 ML 500 ML IV SCH ×2 (11:22→22:15)
--- NOTE | 2017-10-21 11:40 | Consultation ---
History of Present Illness Consult date: 10/21/17 Requesting physician: ROHIT BENTON Reason for consult: other (Sepsis Syndrome; Necrotizing fascitis; Morbid Obesity ) History of present illness: PULMONARY/CCM CONSULT NOTE (Full dictation # [id number]) Please see dictated notes for full details Past History Past Medical History: COPD, other (morbid obesity, choledocolithiasis) Past Surgical History: Other (ERCP with stent placement) Social history: single, lives with family. denies: smoking, alcohol abuse, prescription drug abuse Family history: no significant family history Medications and Allergies Allergies Allergy/AdvReac Type Severity Reaction Status Date / Time No Known Allergies Allergy Verified 07/13/16 14:25 Active Meds: Active Medications Acetaminophen (Tylenol) 650 mg PO Q4H PRN PRN Reason: Pain MILD(1-3)/Fever >100.5/[place]LE[place] Enoxaparin Sodium (Lovenox) 40 mg SUB-Q QDAY DEX Last Admin: 10/21/17 10:54 Dose: 40 mg Piperacillin Sod/Tazobactam Sod (Zosyn/Ns 4.5gm/100ml) 4.5 gm in 100 mls @ 200 mls/hr IV Q8HR DEX; Protocol Last Admin: 10/21/17 06:31 Dose: 200 mls/hr Vancomycin HCl 2,000 mg/ (Sodium Chloride) 520 mls @ 250 mls/hr IV Q12HR DEX Last Admin: 10/21/17 11:22 Dose: 250 mls/hr Sodium Chloride (Nacl 0.9% 1000 Ml) 1,000 mls @ 125 mls/hr IV DIRECT DEX Last Admin: 10/21/17 11:34 Dose: 125 mls/hr Clindamycin HCl (Cleocin 600 Mg/50 Ml) 600 mg in 50 mls @ 100 mls/hr IV Q8HR DEX; Protocol Morphine Sulfate (Morphine) 2 mg IV Q4H PRN PRN Reason: Pain, Moderate (4-6) Morphine Sulfate (Morphine) 4 mg IV Q4H PRN PRN Reason: Pain , Severe (7-10) Ondansetron HCl (Zofran) 4 mg IV Q8H PRN PRN Reason: Nausea And Vomiting Sodium Chloride (Sodium Chloride Flush Syringe 10 Ml) 10 ml IV BID DEX Last Admin: 10/21/17 10:54 Dose: 10 ml Sodium Chloride (Sodium Chloride Flush Syringe 10 Ml) 10 ml IV PRN PRN PRN Reason: LINE FLUSH Last Admin: 10/20/17 13:21 Dose: 10 ml Vancomycin HCl (Vancomycin Pharmacy To Dose) 1 each IV PKCONSULT DEX Physical Examination Vital signs: Vital Signs Temp Pulse 98.6 F 102 H 10/19/17 20:21 10/19/17 20:21 Results - Laboratory Findings CBC and BMP: 10/21/17 05:15 10/21/17 05:15 Abnormal lab findings: Abnormal Labs 10/19/17 10/19/17 10/20/17 20:40 20:40 10:20 WBC 27.5 H 22.8 H RBC Hgb Hct Plt Count 585 H 500 H Seg Neuts % (Manual) 94.0 H 76.5 H Lymphocytes % (Manual) 3.5 L 7.0 L Seg Neutrophils # Man 25.9 H 17.4 H Lymphocytes # (Manual) 1.0 L Monocytes # (Manual) 0.9 H Sodium 136 L Chloride Carbon Dioxide Creatinine 0.3 L Glucose 106 H Calcium 7.9 L Alkaline Phosphatase 272 H Total Protein 6.2 L Albumin 1.8 L Lipase 4 L 10/21/17 10/21/17 05:15 05:15 WBC 21.4 H RBC 3.34 L Hgb 9.5 L Hct 30.0 L Plt Count 459 H Seg Neuts % (Manual) 84.5 H Lymphocytes % (Manual) 1.0 L Seg Neutrophils # Man 18.1 H Lymphocytes # (Manual) 0.2 L Monocytes # (Manual) Sodium Chloride 109.3 H Carbon Dioxide 21 L Creatinine 0.3 L Glucose Calcium 7.2 L Alkaline Phosphatase Total Protein Albumin Lipase
--- NOTE | 2017-10-21 12:18 | Consultation ---
History of Present Illness - Reason for Consult Consult date: 10/21/17 nec fascitis abdominal wall Requesting physician: MYNOR FLORES - History of Present Illness 57 y/o female with history of morbid obesity, cholelithiasis s/p CBD stent and COPD; admitted on 10/19/17 due to 2-week history of RLQ wall pain and swelling which became excruciating last 3 days. Pain is 10/10, throbbing and sharp. She initially felt like a small "boil". But she states she could not reach the area to see due to large pannus. She denies N/V. Reports diarrhea. Denies DM or previous Staph infections. In the ED, temp 98.6, heart rate 102, respiration 55, O2 sat 92%, blood pressure 94/40. Initial white count 27.5. Hemoglobin 11.2. Platelets 585. Creatinine 0.3. Alkaline phosphatase 272. ED nursing staff reported an abscess area to RLQ opened with foul brown fluid sprouting continuously, contained it with colostomy bag. CT abd showed large fluid collection 13.3b32u36 cm with gas located to the right mid abdominal areain the SQ tissue extending inferiorly to the pelvis. CBD duct with stent, cholelithiasis, small non obstrucitve jose kidney stones and moderate umbilical hernia. patient was taken to the OR 10/20/17 for excisional debridement of abdominal wall abscess. Microbiology: Blood cultures: 10/19 ngtd Urine cultures: 10/19 neg Respiratory cultures: Wound cultures: Current Antimicrobials: Zosyn Vancomycin Clindamycin Previous Antimicrobials: Past History Past Medical History: COPD, other (morbid obesity, choledocolithiasis) Past Surgical History: Other (ERCP with stent placement) Social history: single, lives with family. denies: smoking, alcohol abuse, prescription drug abuse Family history: no significant family history Medications and Allergies Allergies Allergy/AdvReac Type Severity Reaction Status Date / Time No Known Allergies Allergy Verified 07/13/16 14:25 Home Medications Medication Instructions Recorded Confirmed Last Taken Type Amoxicillin/K Clav Tab [Augmentin 1 each PO Q8HR #21 tablet 05/15/16 Unknown Rx 500 MG TAB] Famotidine/Ca Carb/Mag Hydrox 1 each PO BID #20 tab.chew 05/15/16 Unknown Rx [Pepcid Complete Tablet Chew] oxyCODONE /ACETAMINOPHEN [Percocet 1 tab PO BID PRN #10 tablet 05/15/16 Unknown Rx 5/325 mg] Active Meds: Active Medications Acetaminophen (Tylenol) 650 mg PO Q4H PRN PRN Reason: Pain MILD(1-3)/Fever >100.5/GALLEGO Enoxaparin Sodium (Lovenox) 40 mg SUB-Q QDAY DEX Last Admin: 10/21/17 10:54 Dose: 40 mg Piperacillin Sod/Tazobactam Sod (Zosyn/Ns 4.5gm/100ml) 4.5 gm in 100 mls @ 200 mls/hr IV Q8HR DEX; Protocol Last Admin: 10/21/17 06:31 Dose: 200 mls/hr Vancomycin HCl 2,000 mg/ (Sodium Chloride) 520 mls @ 250 mls/hr IV Q12HR DEX Last Admin: 10/21/17 11:22 Dose: 250 mls/hr Sodium Chloride (Nacl 0.9% 1000 Ml) 1,000 mls @ 125 mls/hr IV DIRECT DEX Last Admin: 10/21/17 11:34 Dose: 125 mls/hr Clindamycin HCl (Cleocin 600 Mg/50 Ml) 600 mg in 50 mls @ 100 mls/hr IV Q8HR DEX; Protocol Morphine Sulfate (Morphine) 2 mg IV Q4H PRN PRN Reason: Pain, Moderate (4-6) Morphine Sulfate (Morphine) 4 mg IV Q4H PRN PRN Reason: Pain , Severe (7-10) Ondansetron HCl (Zofran) 4 mg IV Q8H PRN PRN Reason: Nausea And Vomiting Sodium Chloride (Sodium Chloride Flush Syringe 10 Ml) 10 ml IV BID DEX Last Admin: 10/21/17 10:54 Dose: 10 ml Sodium Chloride (Sodium Chloride Flush Syringe 10 Ml) 10 ml IV PRN PRN PRN Reason: LINE FLUSH Last Admin: 10/20/17 13:21 Dose: 10 ml Vancomycin HCl (Vancomycin Pharmacy To Dose) 1 each IV PKCONSULT DEX Review of Systems All systems: negative (as per HPI) Physical Examination - Physical Exam Narrative exam: General appearance: Alert in NAD, conversant obese Eyes: anicteric sclerae, moist conjunctivae; no lid-lag; PERRLA HENT: Atraumatic; oropharynx clear. Neck: Trachea midline; supple, no thyromegaly or lymphadenopathy Lungs: CTA, with normal respiratory effort and no intercostal retractions CV: RRR, no murmurs Abdomen: Soft, large pannus, RLQ with surgical dressings Extremities: No peripheral edema or extremity lymphadenopathy Skin: Normal temperature, turgor and texture; no rash, ulcers or subcutaneous nodules Psych: Appropriate affect, alert and oriented to person, place and time. Neuro: alert and oriented x 3. Moving all extermities Lines: No CVL / PICC - Constitutional Vitals: Vital Signs Temp Pulse Resp BP Pulse Ox 97.8 F 85 26 H 109/39 98 10/21/17 04:00 10/21/17 11:00 10/21/17 11:00 10/21/17 11:00 10/21/17 11:00 Temperature -Last 24 Hours Temperature 97.8 F Temperature 97.9 F Temperature 97.2 F Temperature 95 F Temperature 97.1 F Results - Labs CBC & Chem 7: 10/21/17 05:15 10/21/17 05:15 Labs: Abnormal lab results 10/20/17 10/21/17 10/21/17 Range/Units 10:20 05:15 05:15 WBC 21.4 H (4.5-11.0) K/mm3 RBC 3.34 L (3.65-5.03) M/mm3 Hgb 9.5 L (10.1-14.3) gm/dl Hct 30.0 L (30.3-42.9) % Plt Count 459 H (140-440) K/mm3 Seg Neuts % (Manual) 76.5 H 84.5 H (40.0-70.0) % Lymphocytes % (Manual) 7.0 L 1.0 L (13.4-35.0) % Seg Neutrophils # Man 17.4 H 18.1 H (1.8-7.7) K/mm3 Lymphocytes # (Manual) 0.2 L (1.2-5.4) K/mm3 Monocytes # (Manual) 0.9 H (0.0-0.8) K/mm3 Chloride 109.3 H (98-107) mmol/L Carbon Dioxide 21 L (22-30) mmol/L Creatinine 0.3 L (0.7-1.2) mg/dL Calcium 7.2 L (8.4-10.2) mg/dL Assessment and Plan Assessment: 1) Sepsis: Present on admission, manifested by tachycardia, hypotension, leukocytosis, tachypnea. Etiology most likely abdominal wall abscess. 2) Large abdominal wall abscess with presumed necrotizing fascitis -CT abd showed large fluid collection [id number] cm with gas located to the right mid abdominal area in the SQ tissue extending inferiorly to the pelvis. CBD duct with stent, cholelithiasis, small non obstructive jose kidney stones and moderate umbilical hernia. -S/P OR 10/20/17 for excisional debridement of abdominal wall abscess - Gram stain +GNR and GPC in clusters 3) Morbid obesity 4) Cholelithiasis s/p CBD stent 5) COPD Plan: -follow-up blood cultures,OR cultures -contact isolation -continue vancomycin, zosyn and clindamycin for now -will require IV abx for 2-3 weeks -wound care consult -CRP Thank you for your consultation, will follow up with you. Pauly Yao MD Infectious Diseases Specialist [facility] ([facility]) M [phone] O [phone]
[2017-10-21] MEDS: CLEOCIN 600 MG/50 mL 600 MG/50 ML BAG IV SCH ×2 (13:43→22:16)
[2017-10-21] MEDS: PEPCID PO SCH (13:53)
--- NOTE | 2017-10-21 16:27 | Progress Note ---
Assessment and Plan 57 yo morbidly obese female s/p excisional debridement of abscess and necrotic tissue right lower abdomen, POD 1 1. necrotizing fasciitis right lower abdominal wall 2. severe protein calorie malnutrition 3. sepsis 2/2 #1 Plan: 1. Reg diet with protein supplements QID - NPO p MN tonight 2. IVF 3. IV abx - on vanco, zosyn and clinda. Cultures pending 4. ID consulted and recs appreciated 5. DVT PPx 6. trend WBC 7. nutrition consult 8. wound care consult 9. Case management consult - the patient is unfunded. She will need a wound vac and wound care follow up as outpatient. 10. Plan to return to OR tomorrow for abdominal wound washout and placement of wound vac. Thank you for this consultation, please call with questions or concerns Subjective Date of service: 10/21/17 Narrative: Pt seen and examined. No complaints. No overnight events. No f/c. No CP, SOB, n/ v. She has no abdominal pain. Objective Vital Signs - 12hr 10/21/17 10/21/17 10/21/17 04:30 04:45 05:00 Pulse Rate 77 75 67 Pulse Rate [ Right Radial] Respiratory 22 17 13 Rate Blood Pressure 112/39 112/39 95/37 O2 Sat by Pulse 100 100 100 Oximetry 10/21/17 10/21/17 10/21/17 05:15 05:30 05:45 Pulse Rate 72 80 61 Pulse Rate [ Right Radial] Respiratory 16 25 H 13 Rate Blood Pressure 95/37 103/41 103/41 O2 Sat by Pulse 100 100 100 Oximetry 10/21/17 10/21/17 10/21/17 06:00 06:15 06:30 Pulse Rate 83 59 L 76 Pulse Rate [ Right Radial] Respiratory 19 12 22 Rate Blood Pressure 102/33 102/33 109/44 O2 Sat by Pulse 100 100 100 Oximetry 10/21/17 10/21/17 10/21/17 06:45 07:00 07:15 Pulse Rate 63 74 67 Pulse Rate [ Right Radial] Respiratory 26 H 17 13 Rate Blood Pressure 102/33 96/38 96/38 O2 Sat by Pulse 100 100 100 Oximetry 10/21/17 10/21/17 10/21/17 07:30 07:45 08:00 Pulse Rate 72 76 Pulse Rate [ 76 Right Radial] Respiratory 17 25 H 23 Rate Blood Pressure 110/40 96/38 O2 Sat by Pulse 100 99 97 Oximetry 10/21/17 10/21/17 10/21/17 08:05 08:16 08:30 Pulse Rate 76 82 85 Pulse Rate [ Right Radial] Respiratory 23 37 H 26 H Rate Blood Pressure 116/47 116/47 O2 Sat by Pulse 100 96 97 Oximetry 10/21/17 10/21/17 10/21/17 08:46 09:00 09:16 Pulse Rate 87 93 H 86 Pulse Rate [ Right Radial] Respiratory 17 27 H 17 Rate Blood Pressure 96/64 96/64 101/41 O2 Sat by Pulse 96 96 96 Oximetry 10/21/17 10/21/17 10/21/17 09:30 09:46 10:00 Pulse Rate 78 79 83 Pulse Rate [ Right Radial] Respiratory 20 15 23 Rate Blood Pressure 101/41 98/28 107/36 O2 Sat by Pulse 96 97 97 Oximetry 10/21/17 10/21/17 10/21/17 10:16 10:30 10:46 Pulse Rate 87 84 83 Pulse Rate [ Right Radial] Respiratory 26 H 20 16 Rate Blood Pressure 107/36 109/42 109/42 O2 Sat by Pulse 97 97 97 Oximetry 10/21/17 10/21/17 10/21/17 11:00 11:16 11:30 Pulse Rate 85 88 88 Pulse Rate [ Right Radial] Respiratory 26 H 28 H 28 H Rate Blood Pressure 109/39 109/39 108/24 O2 Sat by Pulse 98 98 97 Oximetry 10/21/17 10/21/17 10/21/17 11:46 12:00 12:16 Pulse Rate 84 90 82 Pulse Rate [ 82 Right Radial] Respiratory 22 21 27 H Rate Blood Pressure 108/24 101/32 101/32 O2 Sat by Pulse 98 98 99 Oximetry 10/21/17 10/21/17 10/21/17 12:30 12:46 13:00 Pulse Rate 83 84 82 Pulse Rate [ Right Radial] Respiratory 24 25 H 25 H Rate Blood Pressure 108/34 108/34 96/39 O2 Sat by Pulse 97 98 98 Oximetry 10/21/17 10/21/17 10/21/17 13:16 13:30 13:46 Pulse Rate 81 89 92 H Pulse Rate [ Right Radial] Respiratory 20 22 35 H Rate Blood Pressure 96/39 96/39 91/27 O2 Sat by Pulse 97 97 92 Oximetry 10/21/17 10/21/17 10/21/17 14:00 14:16 14:30 Pulse Rate 93 H 94 H 91 H Pulse Rate [ Right Radial] Respiratory 26 H 22 32 H Rate Blood Pressure 91/27 112/41 119/39 O2 Sat by Pulse 91 93 96 Oximetry 10/21/17 10/21/17 14:46 15:00 Pulse Rate 90 89 Pulse Rate [ Right Radial] Respiratory 31 H 28 H Rate Blood Pressure 119/39 114/44 O2 Sat by Pulse 96 96 Oximetry - General physical appearance Narrative Exam: Gen: AAOx3. NAD CV: S1, S2+ resp: even and unlabored Abd: soft, NT, ND. Dressing Right lower abdomen c/d/i, reinforced Ext: no c/c/e - Labs 10/21/17 05:15 10/21/17 05:15 Diabetes panel 10/21/17 Range/Units 05:15 Sodium 143 D (137-145) mmol/L Potassium 3.9 (3.6-5.0) mmol/L Chloride 109.3 H (98-107) mmol/L Carbon Dioxide 21 L (22-30) mmol/L BUN 11 (7-17) mg/dL Creatinine 0.3 L (0.7-1.2) mg/dL Glucose 85 (65-100) mg/dL Calcium 7.2 L (8.4-10.2) mg/dL Calcium panel 10/21/17 Range/Units 05:15 Calcium 7.2 L (8.4-10.2) mg/dL Pituitary panel 10/21/17 Range/Units 05:15 Sodium 143 D (137-145) mmol/L Potassium 3.9 (3.6-5.0) mmol/L Chloride 109.3 H (98-107) mmol/L Carbon Dioxide 21 L (22-30) mmol/L BUN 11 (7-17) mg/dL Creatinine 0.3 L (0.7-1.2) mg/dL Glucose 85 (65-100) mg/dL Calcium 7.2 L (8.4-10.2) mg/dL Adrenal panel 10/21/17 Range/Units 05:15 Sodium 143 D (137-145) mmol/L Potassium 3.9 (3.6-5.0) mmol/L Chloride 109.3 H (98-107) mmol/L Carbon Dioxide 21 L (22-30) mmol/L BUN 11 (7-17) mg/dL Creatinine 0.3 L (0.7-1.2) mg/dL Glucose 85 (65-100) mg/dL Calcium 7.2 L (8.4-10.2) mg/dL
--- NOTE | 2017-10-21 19:17 | Progress Note ---
Assessment and Plan Assessment and plan: 57-year-old woman s/p biliary stent for obstructive jaundice comes to the ER for evaluation of abdominal pain. Pain is in the right lower abdomen, which she described as sharp pain, constant, intensity 8/10, radiating to the back, she cannot identify exacerbating or relieving factors. she admits to diarrhea for 1 week. non bloody, no fever or chills procedures 10/20; excisional debridement of necrotic skin, subcutaneous tissue, and fascia of abdominal wall Sepsis due to large abscess of R lower abdominal wall/pannus -sp I and D, continue abx, fup cultures per ID "-contact isolation-continue vancomycin, zosyn and clindamycin for now -will require IV abx for 2-3 weeks " per Gen Sx; ". Case management consult - the patient is unfunded. She will need a wound vac and wound care follow up as outpatient. . Plan to return to OR 10/22 for abdominal wound washout and placement of wound vac." Morbid Obesity/ severe protein calorie malnutrition; lifestyle modification Diarrhea has now resolved; no further workup indicated CCT 33 minutes History Interval history: Review of systems Constitutional: No fevers, no malaise, no joint pains CVS: No chest pain, no orthopnea, no dyspnea on exertion, no pedal edema GI: post op abdominal pain is under control per patient, no diarrhea, no vomiting, no constipation Respiratory: No shortness of breath, no wheezing, no coughing Hospitalist Physical - Physical exam Narrative exam: General.: Appears well, no distress, nontoxic, unkempt, HEENT: Moist mucous membranes, extraocular muscles intact, no lymphadenopathy Neck: supple Cardiac: S1-S2 heard Lungs: clear to auscultation bilaterally Abdomen: soft ,wound dressing to pannus noted, was not removed Extremities: no edema clubbing or cyanosis Skin: no rash or lesions Neurologic: no gross focal deficits Psych: appropriate behavior, appropriate mood, corporative, judgment intact - Constitutional Vitals: Temp Pulse Resp BP Pulse Ox 97.8 F 97 H 26 H 114/44 97 10/21/17 04:00 10/21/17 18:30 10/21/17 18:30 10/21/17 18:30 10/21/17 18:30 Results - Labs CBC & Chem 7: 10/21/17 05:15 10/21/17 05:15 Labs: Laboratory Last Values WBC 21.4 K/mm3 (4.5-11.0) H 10/21/17 05:15 RBC 3.34 M/mm3 (3.65-5.03) L 10/21/17 05:15 Hgb 9.5 gm/dl (10.1-14.3) L 10/21/17 05:15 Hct 30.0 % (30.3-42.9) L 10/21/17 05:15 MCV 90 fl (79-97) 10/21/17 05:15 MCH 28 pg (28-32) 10/21/17 05:15 MCHC 32 % (30-34) 10/21/17 05:15 RDW 15.2 % (13.2-15.2) 10/21/17 05:15 Plt Count 459 K/mm3 (140-440) H 10/21/17 05:15 Add Manual Diff Complete 10/21/17 05:15 Total Counted 200 10/21/17 05:15 Seg Neutrophils % Dewaterer Operator 10/21/17 05:15 Seg Neuts % (Manual) 84.5 % (40.0-70.0) H 10/21/17 05:15 Band Neutrophils % 12.5 % 10/21/17 05:15 Lymphocytes % (Manual) 1.0 % (13.4-35.0) L 10/21/17 05:15 Reactive Lymphs % (Man) 0 % 10/21/17 05:15 Monocytes % (Manual) 1.0 % (0.0-7.3) 10/21/17 05:15 Eosinophils % (Manual) 0 % (0.0-4.3) 10/21/17 05:15 Basophils % (Manual) 0 % (0.0-1.8) 10/21/17 05:15 Metamyelocytes % 0.5 % 10/21/17 05:15 Myelocytes % 0.5 % 10/21/17 05:15 Promyelocytes % 0 % 10/21/17 05:15 Blast Cells % 0 % 10/21/17 05:15 Nucleated RBC % Not Reportable 10/21/17 05:15 Seg Neutrophils # Man 18.1 K/mm3 (1.8-7.7) H 10/21/17 05:15 Band Neutrophils # 2.7 K/mm3 10/21/17 05:15 Lymphocytes # (Manual) 0.2 K/mm3 (1.2-5.4) L 10/21/17 05:15 Abs React Lymphs (Man) 0.0 K/mm3 10/21/17 05:15 Monocytes # (Manual) 0.2 K/mm3 (0.0-0.8) 10/21/17 05:15 Eosinophils # (Manual) 0.0 K/mm3 (0.0-0.4) 10/21/17 05:15 Basophils # (Manual) 0.0 K/mm3 (0.0-0.1) 10/21/17 05:15 Metamyelocytes # 0.1 K/mm3 10/21/17 05:15 Myelocytes # 0.1 K/mm3 10/21/17 05:15 Promyelocytes # 0.0 K/mm3 10/21/17 05:15 Blast Cells # 0.0 K/mm3 10/21/17 05:15 WBC Morphology Not Reportable 10/21/17 05:15 Hypersegmented Neuts Not Reportable 10/21/17 05:15 Hyposegmented Neuts Not Reportable 10/21/17 05:15 Hypogranular Neuts Not Reportable 10/21/17 05:15 Smudge Cells Not Reportable 10/21/17 05:15 Toxic Granulation Not Reportable 10/21/17 05:15 Toxic Vacuolation Not Reportable 10/21/17 05:15 Dohle Bodies Not Reportable 10/21/17 05:15 Pelger-Huet Anomaly Not Reportable 10/21/17 05:15 Logan Rods Not Reportable 10/21/17 05:15 Platelet Estimate Consistent w auto 10/21/17 05:15 Clumped Platelets Not Reportable 10/21/17 05:15 Plt Clumps, EDTA Not Reportable 10/21/17 05:15 Large Platelets Not Reportable 10/21/17 05:15 Giant Platelets Not Reportable 10/21/17 05:15 Platelet Satelliting Not Reportable 10/21/17 05:15 Plt Morphology Comment Not Reportable 10/21/17 05:15 RBC Morphology Not Reportable 10/21/17 05:15 Dimorphic RBCs Not Reportable 10/21/17 05:15 Polychromasia Not Reportable 10/21/17 05:15 Hypochromasia Not Reportable 10/21/17 05:15 Poikilocytosis Not Reportable 10/21/17 05:15 Anisocytosis Not Reportable 10/21/17 05:15 Microcytosis Not Reportable 10/21/17 05:15 Macrocytosis Not Reportable 10/21/17 05:15 Spherocytes Not Reportable 10/21/17 05:15 Pappenheimer Bodies Not Reportable 10/21/17 05:15 Sickle Cells Not Reportable 10/21/17 05:15 Target Cells Not Reportable 10/21/17 05:15 Tear Drop Cells Not Reportable 10/21/17 05:15 Ovalocytes Not Reportable 10/21/17 05:15 Helmet Cells Not Reportable 10/21/17 05:15 [place] Bodies Not Reportable 10/21/17 05:15 [place] Rings Not Reportable 10/21/17 05:15 [place] Cells Not Reportable 10/21/17 05:15 Bite Cells Not Reportable 10/21/17 05:15 Crenated Cell Not Reportable 10/21/17 05:15 Elliptocytes Not Reportable 10/21/17 05:15 Acanthocytes (Spur) Not Reportable 10/21/17 05:15 Rouleaux Not Reportable 10/21/17 05:15 Hemoglobin C Crystals Not Reportable 10/21/17 05:15 Schistocytes Not Reportable 10/21/17 05:15 Malaria parasites Not Reportable 10/21/17 05:15 Abdirahman Bodies Not Reportable 10/21/17 05:15 Hem Pathologist Commnt No 10/21/17 05:15 Sodium 143 mmol/L (137-145) D 10/21/17 05:15 Potassium 3.9 mmol/L (3.6-5.0) 10/21/17 05:15 Chloride 109.3 mmol/L (98-107) H 10/21/17 05:15 Carbon Dioxide 21 mmol/L (22-30) L 10/21/17 05:15 Anion Gap 17 mmol/L 10/21/17 05:15 BUN 11 mg/dL (7-17) 10/21/17 05:15 Creatinine 0.3 mg/dL (0.7-1.2) L 10/21/17 05:15 Estimated GFR > 60 ml/min 10/21/17 05:15 BUN/Creatinine Ratio 37 % 10/21/17 05:15 Glucose 85 mg/dL (65-100) 10/21/17 05:15 Lactic Acid 1.70 mmol/L (0.7-2.0) 10/19/17 21:12 Calcium 7.2 mg/dL (8.4-10.2) L 10/21/17 05:15 Total Bilirubin 0.90 mg/dL (0.1-1.2) 10/19/17 20:40 AST 18 units/L (5-40) 10/19/17 20:40 ALT 13 units/L (7-56) 10/19/17 20:40 Alkaline Phosphatase 272 units/L (35-129) H 10/19/17 20:40 Troponin T < 0.010 ng/mL (0.00-0.029) 10/19/17 21:16 C-Reactive Protein 19.40 mg/dL (0.00-1.30) H 10/21/17 05:15 NT-Pro-B Natriuret Pep 307.7 pg/mL (0-900) 10/19/17 21:35 Total Protein 6.2 g/dL (6.3-8.2) L 10/19/17 20:40 Albumin 1.8 g/dL (3.9-5) L 10/19/17 20:40 Albumin/Globulin Ratio 0.4 % 10/19/17 20:40 Lipase 4 units/L (13-60) L 10/19/17 20:40 Urine Color [place] (Yellow) 10/19/17 20:57 Urine Turbidity Clear (Clear) 10/19/17 20:57 Urine pH 6.0 (5.0-7.0) 10/19/17 20:57 Ur Specific [place] 1.019 (1.003-1.030) 10/19/17 20:57 Urine Protein <15 mg/dl mg/dL (Negative) 10/19/17 20:57 Urine Glucose (UA) Neg mg/dL (Negative) 10/19/17 20:57 Urine Ketones Tr mg/dL (Negative) 10/19/17 20:57 Urine Blood Neg (Negative) 10/19/17 20:57 Urine Nitrite Neg (Negative) 10/19/17 20:57 Urine Bilirubin Neg (Negative) 10/19/17 20:57 Urine Urobilinogen 4.0 mg/dL (<2.0) 10/19/17 20:57 Ur Leukocyte Esterase Neg (Negative) 10/19/17 20:57 Urine WBC (Auto) 3.0 /HPF (0.0-6.0) 10/19/17 20:57 Urine RBC (Auto) 5.0 /HPF (0.0-6.0) 10/19/17 20:57 U Epithel Cells (Auto) < 1.0 /HPF (0-13.0) 10/19/17 20:57 Urine Mucus Few /HPF 10/19/17 20:57
[2017-10-21] MEDS ORDERED: NACL 0.9% 1000 ML 1,000 ML ONE (20:41)
[2017-10-22] MEDS: MORPHINE IV PRN (02:48)
[2017-10-22] MEDS: SODIUM CHLORIDE FLUSH SYRINGE 10 ML IV SCH ×3 (02:58→22:00)
[2017-10-22] MEDS: D5/0.45NS 1,000 ML IV SCH (09:04)
[2017-10-22] MEDS: LOVENOX SUB-Q SCH (09:06)
[2017-10-22] MEDS: PEPCID PO SCH (09:06)
[2017-10-22] MEDS: VANCOMYCIN 2,000 MG in NACL 0.9% 500 ML 500 ML IV SCH ×2 (09:09→22:00)
--- NOTE | 2017-10-22 11:15 | Progress Note ---
Assessment and Plan Assessment: 1) Sepsis: improving. Etiology most likely abdominal wall abscess. 2) Large abdominal wall abscess with necrotizing fascitis. -CT abd showed large fluid collection [id number] cm with gas located to the right mid abdominal area in the SQ tissue extending inferiorly to the pelvis. CBD duct with stent, cholelithiasis, small non obstructive jose kidney stones and moderate umbilical hernia. -S/P OR 10/20/17 for excisional debridement of abdominal wall abscess - Gram stain +GNR and GPC in clusters, OR cx + GNRs -CRP=19 3) Morbid obesity 4) Cholelithiasis s/p CBD stent 5) COPD Plan: -follow-up blood cultures, OR cultures -contact isolation -continue vancomycin, zosyn -stop clindamycin - no evidence of GAS -will require IV abx for 2-3 weeks -wound care consult -geriatric case manager to consider exploring [facility] wound center transfer - pt is unfunded and large complex wound from necrotizing fascitis, needing advanced wound care and IV antibiotics Thank you for your consultation, will follow up with you. Pauly Yao MD Infectious Diseases Specialist [facility] ([facility]) M [phone] O [phone] Subjective Date of service: 10/22/17 Principal diagnosis: necrotizing fascitis Interval history: Feels ok, still c/o RLQ abdominal pain, no fever/ Microbiology: Blood cultures: 10/19 ngtd Urine cultures: 10/19 neg Respiratory cultures: Wound cultures: 10/21 GNR Abx: zosyn vanco clindamycin Objective - Exam Narrative Exam: General appearance: Alert in NAD, conversant obese Eyes: anicteric sclerae, moist conjunctivae; no lid-lag; PERRLA HENT: Atraumatic; oropharynx clear. Neck: Trachea midline; supple, no thyromegaly or lymphadenopathy Lungs: CTA, with normal respiratory effort and no intercostal retractions CV: RRR, no murmurs Abdomen: Soft, large pannus, RLQ with surgical dressings surrounding marked edema and tenderness Extremities: No peripheral edema or extremity lymphadenopathy Skin: Normal temperature, turgor and texture; no rash, ulcers or subcutaneous nodules Psych: Appropriate affect, alert and oriented to person, place and time. Neuro: alert and oriented x 3. Moving all extermities Lines: No CVL / PICC - Constitutional Vitals: Vital Signs Temp Pulse Resp BP Pulse Ox 98.0 F 78 14 109/46 95 10/22/17 03:57 10/22/17 11:00 10/22/17 11:00 10/22/17 11:00 10/22/17 11:00 Temperature -Last 24 Hours Temperature 98.0 F Temperature 97.9 F Temperature 98.7 F - Labs CBC & Chem 7: 10/21/17 05:15 10/21/17 05:15 Labs: Abnormal lab results 10/21/17 10/22/17 Range/Units 05:15 03:42 C-Reactive Protein 19.40 H (0.00-1.30) mg/dL Prealbumin 0.050 L (0.200-0.400) g/L
--- NOTE | 2017-10-22 12:11 | Progress Note ---
Subjective Date of service: 10/22/17 Principal diagnosis: necrotizing fascitis Objective Vital Signs - 12hr 10/22/17 10/22/17 10/22/17 01:00 02:00 03:00 Temperature Pulse Rate 84 82 86 Respiratory 16 17 19 Rate Blood Pressure 109/45 104/63 99/36 O2 Sat by Pulse 96 91 83 L Oximetry 10/22/17 10/22/17 10/22/17 03:57 04:00 05:00 Temperature 98.0 F Pulse Rate 79 77 Respiratory 20 16 Rate Blood Pressure 101/39 98/36 O2 Sat by Pulse 95 95 Oximetry 10/22/17 10/22/17 10/22/17 06:00 07:00 08:00 Temperature Pulse Rate 75 78 Respiratory 14 20 20 Rate Blood Pressure 99/33 107/40 O2 Sat by Pulse 95 96 Oximetry 10/22/17 10/22/17 10/22/17 08:01 08:13 09:00 Temperature Pulse Rate 78 80 Respiratory 15 16 Rate Blood Pressure 101/31 101/47 O2 Sat by Pulse 96 94 93 Oximetry 10/22/17 10/22/17 10:00 11:00 Temperature Pulse Rate 77 78 Respiratory 14 14 Rate Blood Pressure 108/45 109/46 O2 Sat by Pulse 95 95 Oximetry CBC and BMP: 10/21/17 05:15 10/21/17 05:15 Abnormal lab findings: Abnormal Labs 10/19/17 10/19/17 10/20/17 20:40 20:40 10:20 WBC 27.5 H 22.8 H RBC Hgb Hct Plt Count 585 H 500 H Seg Neuts % (Manual) 94.0 H 76.5 H Lymphocytes % (Manual) 3.5 L 7.0 L Seg Neutrophils # Man 25.9 H 17.4 H Lymphocytes # (Manual) 1.0 L Monocytes # (Manual) 0.9 H Sodium 136 L Chloride Carbon Dioxide Creatinine 0.3 L Glucose 106 H Calcium 7.9 L Alkaline Phosphatase 272 H C-Reactive Protein Total Protein 6.2 L Albumin 1.8 L Prealbumin Lipase 4 L Vancomycin Trough 10/21/17 10/21/17 10/21/17 05:15 05:15 05:15 WBC 21.4 H RBC 3.34 L Hgb 9.5 L Hct 30.0 L Plt Count 459 H Seg Neuts % (Manual) 84.5 H Lymphocytes % (Manual) 1.0 L Seg Neutrophils # Man 18.1 H Lymphocytes # (Manual) 0.2 L Monocytes # (Manual) Sodium Chloride 109.3 H Carbon Dioxide 21 L Creatinine 0.3 L Glucose Calcium 7.2 L Alkaline Phosphatase C-Reactive Protein 19.40 H Total Protein Albumin Prealbumin Lipase Vancomycin Trough 10/22/17 10/22/17 03:42 10:15 WBC RBC Hgb Hct Plt Count Seg Neuts % (Manual) Lymphocytes % (Manual) Seg Neutrophils # Man Lymphocytes # (Manual) Monocytes # (Manual) Sodium Chloride Carbon Dioxide Creatinine Glucose Calcium Alkaline Phosphatase C-Reactive Protein Total Protein Albumin Prealbumin 0.050 L Lipase Vancomycin Trough 54.6 H
[2017-10-22] MEDS: ZOSYN/NS 4.5GM/100ML 4.5 GM/100 ML VIAL IV SCH ×3 (13:04→22:00)
[2017-10-22] MEDS: CLEOCIN 600 MG/50 mL 600 MG/50 ML BAG IV SCH ×2 (13:04→14:20)
--- NOTE | 2017-10-22 13:53 | XRay Report ---
AP CHEST: HISTORY: Hypoxemic respiratory failure Compared to 05/13/16. There is poor inspiration. Mild cardiomegaly is unchanged. Pulmonary vessels are borderline. Minor atelectatic changes are noted at the right lung base, otherwise the lungs are clear. No pleural effusion or pneumothorax. No significant change since the comparison exam. IMPRESSION: Mild cardiomegaly. Minor right basilar atelectasis.
--- NOTE | 2017-10-22 14:08 | Progress Note ---
Assessment and Plan Sepsis syndrome. Acute Hypoxemic Hypercapnic Respiratory Failure Necrotizing fasciitis involving the right lower quadrant pannus. Leukocytosis. Mild hyponatremia. Morbid obesity. History of chronic obstructive pulmonary disease. Acute hypoxemic respiratory failure - deploy BIPAP scheduled QHS with prn daytime use for alveolar recruitment and for respiratory acidosis component - likely MARIN/OHS also and will need outpatienty sleep clinic evaluation - continue wound care per RN & WCT - to O.R. for wound vac today then re-evaluate post op - wean oxygen to keep O2 Sats > 90% - repeat CXR in 48 hours to re-evaluate RLL atelectasis - continue and complete AB's per ID recs - continue GI & VTE prophylaxis - Flu & pneumonia vaccination per protocol ... re-evaluate in am & prn ... 35' Subjective Date of service: 10/22/17 Principal diagnosis: Acute Hypoxemic Hypercapnic Resp Failure; Sepsis; Necrotizing fascitis Interval history: Patient is seen today for: Acute Hypoxemic Hypercapnic Resp Failure; Sepsis; Necrotizing fascitis Seen and examined at bedside; 24hour events reviewed; nursing and respiratory care staff consulted; no adverse overnight events reported to me; somnolent today; denies any uncontrolled pain; remains on supplemental oxygen; No N/V/F/C ; to go back to OR for wound vac Objective Vital Signs - 12hr 10/22/17 10/22/17 10/22/17 03:00 03:57 04:00 Temperature 98.0 F Pulse Rate 86 79 Respiratory 19 20 Rate Blood Pressure 99/36 101/39 O2 Sat by Pulse 83 L 95 Oximetry 10/22/17 10/22/17 10/22/17 05:00 06:00 07:00 Temperature Pulse Rate 77 75 78 Respiratory 16 14 20 Rate Blood Pressure 98/36 99/33 107/40 O2 Sat by Pulse 95 95 96 Oximetry 10/22/17 10/22/17 10/22/17 08:00 08:01 08:13 Temperature Pulse Rate 78 Respiratory 20 15 Rate Blood Pressure 101/31 O2 Sat by Pulse 96 94 Oximetry 10/22/17 10/22/17 10/22/17 09:00 10:00 11:00 Temperature Pulse Rate 80 77 78 Respiratory 16 14 14 Rate Blood Pressure 101/47 108/45 109/46 O2 Sat by Pulse 93 95 95 Oximetry 07/07/0710/22/17 10/22/17 12:00 13:26 13:59 Temperature Pulse Rate 74 72 Respiratory 13 23 Rate Blood Pressure 111/44 115/47 O2 Sat by Pulse 95 97 98 Oximetry Constitutional: no acute distress, lethargic, other (morbidly obese middle aged CF, normocephalic and atraumatic with mildly increased resp effort at rest) Eyes: non-icteric ENT: oropharynx moist, other (mallampatti 3) Neck: supple, no lymphadenopathy, no JVD, other (no thyromegaly) Effort: mildly labored Ascultation: Bilateral: diminished breath sounds Percussion: Bilateral: not dull Cardiovascular: regular rate and rhythm, other (No R/M) Gastrointestinal: normoactive bowel sounds, soft, non-tender, non-distended, other (dressing to RLQ patti-operative site) Integumentary: other (poor turgor; pannus) Extremities: no cyanosis, no edema, pink and warm, pulses normal Neurologic: normal mental status, non-focal exam, pupils equal and round, motor strength normal and Psychiatric: depressed CBC and BMP: 10/23/17 03:55 10/23/17 03:55 ABG, PT/INR, D-dimer: ABG POC ABG pH 7.255 (7.35-7.45) L 10/22/17 13:29 POC ABG pCO2 50.5 (35-45) H 10/22/17 13:29 POC ABG pO2 87 (80-105) 10/22/17 13:29 POC ABG HCO3 22.4 10/22/17 13:29 POC ABG Total CO2 24 10/22/17 13:29 POC ABG O2 Sat 95 10/22/17 13:29 Abnormal lab findings: Abnormal Labs 10/19/17 10/19/17 10/20/17 20:40 20:40 10:20 WBC 27.5 H 22.8 H RBC Hgb Hct Plt Count 585 H 500 H Seg Neuts % (Manual) 94.0 H 76.5 H Lymphocytes % (Manual) 3.5 L 7.0 L Seg Neutrophils # Man 25.9 H 17.4 H Lymphocytes # (Manual) 1.0 L Monocytes # (Manual) 0.9 H POC ABG pH POC ABG pCO2 Sodium 136 L Chloride Carbon Dioxide Creatinine 0.3 L Glucose 106 H Calcium 7.9 L Alkaline Phosphatase 272 H C-Reactive Protein Total Protein 6.2 L Albumin 1.8 L Prealbumin Lipase 4 L Vancomycin Trough 10/21/17 10/21/17 10/21/17 05:15 05:15 05:15 WBC 21.4 H RBC 3.34 L Hgb 9.5 L Hct 30.0 L Plt Count 459 H Seg Neuts % (Manual) 84.5 H Lymphocytes % (Manual) 1.0 L Seg Neutrophils # Man 18.1 H Lymphocytes # (Manual) 0.2 L Monocytes # (Manual) POC ABG pH POC ABG pCO2 Sodium Chloride 109.3 H Carbon Dioxide 21 L Creatinine 0.3 L Glucose Calcium 7.2 L Alkaline Phosphatase C-Reactive Protein 19.40 H Total Protein Albumin Prealbumin Lipase Vancomycin Trough 10/22/17 10/22/17 10/22/17 03:42 10:15 13:29 WBC RBC Hgb Hct Plt Count Seg Neuts % (Manual) Lymphocytes % (Manual) Seg Neutrophils # Man Lymphocytes # (Manual) Monocytes # (Manual) POC ABG pH 7.255 L POC ABG pCO2 50.5 H Sodium Chloride Carbon Dioxide Creatinine Glucose Calcium Alkaline Phosphatase C-Reactive Protein Total Protein Albumin Prealbumin 0.050 L Lipase Vancomycin Trough 54.6 H Chest x-ray: image reviewed (RLL partial atelectasis without mediastinal shift) Allied health notes reviewed: nursing
--- NOTE | 2017-10-22 15:48 | Anesthesia Day of Surgery ---
Anesthesia Day of Surgery - Day of Surgery Patient Examined: Yes Patient H&P Reviewed: Yes Patient is NPO: Yes
[2017-10-22] MEDS: NACL 0.9% 1000 ML 1,000 ML IV SCH (15:57)
[2017-10-22] MEDS ORDERED: SUBLIMAZE ONE (16:24)
[2017-10-22] MEDS ORDERED: ZEMURON IV ONE (16:24)
[2017-10-22] MEDS ORDERED: QUELICIN ONE (16:24)
[2017-10-22] MEDS ORDERED: DIPRIVAN 10 MG/ML IV ONE (16:25)
[2017-10-22] MEDS ORDERED: VERSED ONE (17:02)
[2017-10-22] MEDS ORDERED: NACL 0.9% IR ONE ×2 (17:32)
--- NOTE | 2017-10-22 17:57 | Operative Report ---
Operative Report Operative Report: Date of procedure: 10/20/17 Pre-op diagnosis: abdominal wall abscess Post-op diagnosis: other (abdominal wall necrotizing fasciitis) Findings: 35cm (w) x 6 cm (l) x 15 cm (d) abscess cavity. Deep border is fascia, some of which was necrotic and excised. Most of the subcutaneous fat had already undergone liquefaction necrosis. Procedure: excisional debridement of necrotic skin, subcutaneous tissue, and fascia of abdominal wall Anesthesia: KARLEE Surgeon: MYNOR FLORES Estimated blood loss: 50-100ml Pathology: list (cultures) Specimen disposition: to lab Condition: stable Disposition: ICU (for close monitoring overnight) HPI and indication: 57 yo F with hx of morbid obesity that presents to the ER with c/o lower abdominal pain. She was found to have a large abscess in the right lower abdominal wall/pannus and sepsis with an elevated WBC. It was decided that the patient needed surgical debridement and drainage in the OR due to the patient's body habitus and large nature of the abscess. All risks, benefits, alternatives of surgical debridement were discussed with the patient and consent obtained. Procedure in detail: Pt identified in the preoperative area and taken back to the operating room and placed on the operating room table in supine position. After anesthesia was induced, the right lower abdomen/pannus was examined and there was a copious amount of thin brown foul smelling drainage from an opening in the skin. The lower abdomen was prepped and draped in the usual sterile fashion and time out performed. The skin in the area of the abscess had areas of necrosis. Using a 15 blade, a horizontal incision was made to further open the draining sinus. The necrotic skin was excised circumfrentially. Upon opening up the wound, a large amount of necrotic fat was encountered and debrided sharply with scissors. Wound cultures were obtained. Portions of the underlying fascia was necrotic as well and was debrided using scissors. Once all of the necrotic tissue was excised, the abscess cavity was measured at 35cm (w) x 6 cm (l) x 15 cm (d). The wound was irrigated with pulse-lavage 4 L of saline. [place], healthy tissue was visualized and there was punctate bleeding from the entire wound surface and skin edges. Hemostasis was achieved with electrocautery and pressure. The wound was packed with 5 saline moistened kerlex tied together. This was covered with 4x4 fluff gauze, ABD pads, and medipore tape. At the end of the case, all sponge, instrument, sharp counts were correct 2. The patient was awoken from anesthesia, extubated and taken to PACU in stable condition.
--- NOTE | 2017-10-22 18:04 | Operative Report ---
Operative Report Operative Report: Date of procedure: 10/22/17 Pre-op diagnosis: Necrotizing fasciitis of abdominal wall Post-op diagnosis: Same as above Findings: Wound without evidence of further necrosis. Wound base is pink and healthy- appearing. Procedure: Abdominal wound washout and placement of negative pressure wound VAC therapy Anesthesia: KARLEE Surgeon: MYNOR FLORES Estimated blood loss: Less than 10 mL Pathology: None Specimen disposition: N/a Condition: stable Disposition: ICU HPI an indication: Patient is a 57-year-old female who presented to the emergency room on 10/19/17 with a large abscess of right lower abdominal wall/ pannus. The patient was septic and taken to the operating room on 10/20/17 for incision and drainage. She was found to have necrotizing fasciitis of the abdominal wall. She underwent excisional debridement and washout. The patient is being brought back to OR today for wound exploration, washout, possible debridement, and wound VAC placement. All risks, benefits, alternatives of surgery were discussed with the patient she agreed to proceed. Consent was obtained. Procedure in detail: The patient was identified in the preoperative area and taken back to the operating room. After anesthesia was induced, the right lower abdomen dressing was removed and all packing consisting of 5 Kerlix tied together was removed and discarded. The right lower abdomen/pannus and wound were prepped with Betadine and draped in the usual sterile fashion. A timeout was performed. Inspection of the wound showed a healthy pink wound base with punctate bleeding. There was no evidence of further necrosis of the skin, subcutaneous tissue or fascia. The wound was irrigated with pulse lavage with 2 L of saline. Hemostasis was ensured. A wound VAC was then placed. 2 separate pieces of black sponge were placed into the wound and Tegaderm dressing applied. The VAC was bridged to the right midabdomen and the VAC applied in the usual fashion. This was tacked to low continuous suction at - 125 mmHg and no leak detected on seal check. At the end the case, all sponge, instrument, sharp counts were correct 2. The patient was awoken from anesthesia, extubated, taken to PACU in stable condition.
--- NOTE | 2017-10-22 19:00 | Progress Note ---
Assessment and Plan Assessment and plan: 57-year-old woman s/p biliary stent for obstructive jaundice comes to the ER for evaluation of abdominal pain. Pain is in the right lower abdomen, which she described as sharp pain, constant, intensity 8/10, radiating to the back, she cannot identify exacerbating or relieving factors. she admits to diarrhea for 1 week. non bloody, no fever or chills procedures 10/20; excisional debridement of necrotic skin, subcutaneous tissue, and fascia of abdominal wall 10/22; Abdominal wound washout and placement of negative pressure wound VAC therapy Sepsis due to large abscess of R lower abdominal wall/pannus -sp I and D, continue abx,cultures growing gram neg rods per ID "-contact isolation-continue vancomycin, zosyn and clindamycin for now -will require IV abx for 2-3 weeks " Morbid Obesity/ severe protein calorie malnutrition; lifestyle modification Diarrhea has now resolved; no further workup indicated CCT 33 minutes History Interval history: Review of systems Constitutional: No fevers, no malaise, no joint pains CVS: No chest pain, no orthopnea, no dyspnea on exertion, no pedal edema GI: post op abdominal pain is under control per patient, no diarrhea, no vomiting, no constipation Respiratory: No shortness of breath, no wheezing, no coughing Hospitalist Physical - Physical exam Narrative exam: General.: Appears well, no distress, nontoxic, unkempt, HEENT: Moist mucous membranes, extraocular muscles intact, no lymphadenopathy Neck: supple Cardiac: S1-S2 heard Lungs: clear to auscultation bilaterally Abdomen: soft ,wound dressing to pannus noted, was not removed Extremities: no edema clubbing or cyanosis Skin: no rash or lesions Neurologic: no gross focal deficits Psych: appropriate behavior, appropriate mood, corporative, judgment intact - Constitutional Vitals: Temp Pulse Resp BP Pulse Ox 98.3 F 99 H 19 100/49 96 10/22/17 18:00 10/22/17 18:00 10/22/17 18:00 10/22/17 18:06 10/22/17 18:00 Results - Labs CBC & Chem 7: 10/21/17 05:15 10/21/17 05:15 Labs: Laboratory Last Values WBC 21.4 K/mm3 (4.5-11.0) H 10/21/17 05:15 RBC 3.34 M/mm3 (3.65-5.03) L 10/21/17 05:15 Hgb 9.5 gm/dl (10.1-14.3) L 10/21/17 05:15 Hct 30.0 % (30.3-42.9) L 10/21/17 05:15 MCV 90 fl (79-97) 10/21/17 05:15 MCH 28 pg (28-32) 10/21/17 05:15 MCHC 32 % (30-34) 10/21/17 05:15 RDW 15.2 % (13.2-15.2) 10/21/17 05:15 Plt Count 459 K/mm3 (140-440) H 10/21/17 05:15 Add Manual Diff Complete 10/21/17 05:15 Total Counted 200 10/21/17 05:15 Seg Neutrophils % Gas Meter Prover 10/21/17 05:15 Seg Neuts % (Manual) 84.5 % (40.0-70.0) H 10/21/17 05:15 Band Neutrophils % 12.5 % 10/21/17 05:15 Lymphocytes % (Manual) 1.0 % (13.4-35.0) L 10/21/17 05:15 Reactive Lymphs % (Man) 0 % 10/21/17 05:15 Monocytes % (Manual) 1.0 % (0.0-7.3) 10/21/17 05:15 Eosinophils % (Manual) 0 % (0.0-4.3) 10/21/17 05:15 Basophils % (Manual) 0 % (0.0-1.8) 10/21/17 05:15 Metamyelocytes % 0.5 % 10/21/17 05:15 Myelocytes % 0.5 % 10/21/17 05:15 Promyelocytes % 0 % 10/21/17 05:15 Blast Cells % 0 % 10/21/17 05:15 Nucleated RBC % Not Reportable 10/21/17 05:15 Seg Neutrophils # Man 18.1 K/mm3 (1.8-7.7) H 10/21/17 05:15 Band Neutrophils # 2.7 K/mm3 10/21/17 05:15 Lymphocytes # (Manual) 0.2 K/mm3 (1.2-5.4) L 10/21/17 05:15 Abs React Lymphs (Man) 0.0 K/mm3 10/21/17 05:15 Monocytes # (Manual) 0.2 K/mm3 (0.0-0.8) 10/21/17 05:15 Eosinophils # (Manual) 0.0 K/mm3 (0.0-0.4) 10/21/17 05:15 Basophils # (Manual) 0.0 K/mm3 (0.0-0.1) 10/21/17 05:15 Metamyelocytes # 0.1 K/mm3 10/21/17 05:15 Myelocytes # 0.1 K/mm3 10/21/17 05:15 Promyelocytes # 0.0 K/mm3 10/21/17 05:15 Blast Cells # 0.0 K/mm3 10/21/17 05:15 WBC Morphology Not Reportable 10/21/17 05:15 Hypersegmented Neuts Not Reportable 10/21/17 05:15 Hyposegmented Neuts Not Reportable 10/21/17 05:15 Hypogranular Neuts Not Reportable 10/21/17 05:15 Smudge Cells Not Reportable 10/21/17 05:15 Toxic Granulation Not Reportable 10/21/17 05:15 Toxic Vacuolation Not Reportable 10/21/17 05:15 Dohle Bodies Not Reportable 10/21/17 05:15 Pelger-Huet Anomaly Not Reportable 10/21/17 05:15 Logan Rods Not Reportable 10/21/17 05:15 Platelet Estimate Consistent w auto 10/21/17 05:15 Clumped Platelets Not Reportable 10/21/17 05:15 Plt Clumps, EDTA Not Reportable 10/21/17 05:15 Large Platelets Not Reportable 10/21/17 05:15 Giant Platelets Not Reportable 10/21/17 05:15 Platelet Satelliting Not Reportable 10/21/17 05:15 Plt Morphology Comment Not Reportable 10/21/17 05:15 RBC Morphology Not Reportable 10/21/17 05:15 Dimorphic RBCs Not Reportable 10/21/17 05:15 Polychromasia Not Reportable 10/21/17 05:15 Hypochromasia Not Reportable 10/21/17 05:15 Poikilocytosis Not Reportable 10/21/17 05:15 Anisocytosis Not Reportable 10/21/17 05:15 Microcytosis Not Reportable 10/21/17 05:15 Macrocytosis Not Reportable 10/21/17 05:15 Spherocytes Not Reportable 10/21/17 05:15 Pappenheimer Bodies Not Reportable 10/21/17 05:15 Sickle Cells Not Reportable 10/21/17 05:15 Target Cells Not Reportable 10/21/17 05:15 Tear Drop Cells Not Reportable 10/21/17 05:15 Ovalocytes Not Reportable 10/21/17 05:15 Helmet Cells Not Reportable 10/21/17 05:15 Ivy-Rhodell Bodies Not Reportable 10/21/17 05:15 Sandy Rings Not Reportable 10/21/17 05:15 Niles Cells Not Reportable 10/21/17 05:15 Bite Cells Not Reportable 10/21/17 05:15 Crenated Cell Not Reportable 10/21/17 05:15 Elliptocytes Not Reportable 10/21/17 05:15 Acanthocytes (Spur) Not Reportable 10/21/17 05:15 Rouleaux Not Reportable 10/21/17 05:15 Hemoglobin C Crystals Not Reportable 10/21/17 05:15 Schistocytes Not Reportable 10/21/17 05:15 Malaria parasites Not Reportable 10/21/17 05:15 Abdirahman Bodies Not Reportable 10/21/17 05:15 Hem Pathologist Commnt No 10/21/17 05:15 POC ABG pH 7.255 (7.35-7.45) L 10/22/17 13:29 POC ABG pCO2 50.5 (35-45) H 10/22/17 13:29 POC ABG pO2 87 (80-105) 10/22/17 13:29 POC ABG HCO3 22.4 10/22/17 13:29 POC ABG Total CO2 24 10/22/17 13:29 POC ABG O2 Sat 95 10/22/17 13:29 POC ABG Base Excess -5 10/22/17 13:29 FiO2 28 % 10/22/17 13:29 Sodium 143 mmol/L (137-145) D 10/21/17 05:15 Potassium 3.9 mmol/L (3.6-5.0) 10/21/17 05:15 Chloride 109.3 mmol/L (98-107) H 10/21/17 05:15 Carbon Dioxide 21 mmol/L (22-30) L 10/21/17 05:15 Anion Gap 17 mmol/L 10/21/17 05:15 BUN 11 mg/dL (7-17) 10/21/17 05:15 Creatinine 0.3 mg/dL (0.7-1.2) L 10/21/17 05:15 Estimated GFR > 60 ml/min 10/21/17 05:15 BUN/Creatinine Ratio 37 % 10/21/17 05:15 Glucose 85 mg/dL (65-100) 10/21/17 05:15 Lactic Acid 1.70 mmol/L (0.7-2.0) 10/19/17 21:12 Calcium 7.2 mg/dL (8.4-10.2) L 10/21/17 05:15 Total Bilirubin 0.90 mg/dL (0.1-1.2) 10/19/17 20:40 AST 18 units/L (5-40) 10/19/17 20:40 ALT 13 units/L (7-56) 10/19/17 20:40 Alkaline Phosphatase 272 units/L (35-129) H 10/19/17 20:40 Troponin T < 0.010 ng/mL (0.00-0.029) 10/19/17 21:16 C-Reactive Protein 19.40 mg/dL (0.00-1.30) H 10/21/17 05:15 NT-Pro-B Natriuret Pep 307.7 pg/mL (0-900) 10/19/17 21:35 Total Protein 6.2 g/dL (6.3-8.2) L 10/19/17 20:40 Albumin 1.8 g/dL (3.9-5) L 10/19/17 20:40 Albumin/Globulin Ratio 0.4 % 10/19/17 20:40 Prealbumin 0.050 g/L (0.200-0.400) L 10/22/17 03:42 Lipase 4 units/L (13-60) L 10/19/17 20:40 Urine Color [place] (Yellow) 10/19/17 20:57 Urine Turbidity Clear (Clear) 10/19/17 20:57 Urine pH 6.0 (5.0-7.0) 10/19/17 20:57 Ur Specific [place] 1.019 (1.003-1.030) 10/19/17 20:57 Urine Protein <15 mg/dl mg/dL (Negative) 10/19/17 20:57 Urine Glucose (UA) Neg mg/dL (Negative) 10/19/17 20:57 Urine Ketones Tr mg/dL (Negative) 10/19/17 20:57 Urine Blood Neg (Negative) 10/19/17 20:57 Urine Nitrite Neg (Negative) 10/19/17 20:57 Urine Bilirubin Neg (Negative) 10/19/17 20:57 Urine Urobilinogen 4.0 mg/dL (<2.0) 10/19/17 20:57 Ur Leukocyte Esterase Neg (Negative) 10/19/17 20:57 Urine WBC (Auto) 3.0 /HPF (0.0-6.0) 10/19/17 20:57 Urine RBC (Auto) 5.0 /HPF (0.0-6.0) 10/19/17 20:57 U Epithel Cells (Auto) < 1.0 /HPF (0-13.0) 10/19/17 20:57 Urine Mucus Few /HPF 10/19/17 20:57 Vancomycin Trough 54.6 ug/mL (5.0-20.0) H 10/22/17 10:15
--- NOTE | 2017-10-22 20:42 | Consultation ---
PULMONARY CRITICAL CARE CONSULT NOTE CONSULTING PHYSICIAN: Dionicio Kelly MD REASON FOR CONSULTATION: Critical care management status post surgical intervention for necrotizing fasciitis. CHIEF COMPLAINT AND HISTORY OF PRESENT ILLNESS: The patient is a 57-year-old female with a recent past surgical history of a biliary stent placed for obstructive jaundice came into the Emergency Room complaining of abdominal pain in the right lower quadrant area, right lower abdomen, constant, 8/10, radiating to her back, could not identify any exacerbating or relieving factors. She had complained also of some diarrhea. It was nonbloody. She denied any gross or streaky hematochezia. Denied any melena. Evaluation in the Emergency Room ultimately revealed on the CT of the abdomen and pelvis an abnormal collection that seemed to be an abscess in the right lower quadrant region. She was septic. She required surgical intervention, was taken into the OR for management of an abdominal wall abscess and abdominal wall necrotizing fasciitis. They did find a 35 cm x 6 cm x 15 cm abscess cavity. There was excisional debridement of necrotic skin, subcutaneous tissue, and fascia of the abdominal wall postop. The patient was brought into the Intensive Care Unit where I stopped by to see her. She was requiring supplemental oxygen. She was somnolent, but responsive overall. She described good pain control. Denied any nausea. Denied any vomiting. Denied chest pains. Denied cough, denied expectoration. This really is as much of the history of presentation as I have. PAST MEDICAL HISTORY: 1. Morbid obesity. 2. Recent obstructive jaundice. 3. Also, history of chronic obstructive lung disease. PAST SURGICAL HISTORY: She has had an ERCP with stent placement. MEDICATIONS: Medications that she was on at the time I stopped by to see her were reviewed, pertinent medications include the following: She was on Tylenol 650 mg p.o. q.4h. p.r.n. mild pain, Cleocin 600 mg IV q.8 hours, Lovenox 40 mg subQ daily, morphine 4 mg IV q.4 hours p.r.n. severe pain, Zofran 4 mg IV q.8 hours p.r.n. nausea and vomiting, Zosyn 4.5 g IV q.8 hours, vancomycin 2 g IV q.12 hours. ALLERGIES: No known drug allergies. DIET: Morbidly obese. Denies significant weight loss or gain in the preceding few weeks to months. FAMILY AND SOCIAL HISTORY: Lives in the community. Denied alcohol or illicit drug use or abuse. She has about a [id number] tobacco smoking history. There is a family history of hypertension. REVIEW OF SYSTEMS: No loss of consciousness. No new onset seizures. No new onset focal weakness. Denies palpitations. Denies heat or cold intolerance. Denies polydipsia or polyuria. Denied any constipation. Complete 13-system review of systems was obtained. Pertinent positives and/or negatives as in body of history above, otherwise they are noncontributory. PHYSICAL EXAMINATION: VITAL SIGNS: At presentation, she was afebrile, temperature 98.6, pulse was 102, respiratory rate was as high as 55 at that time, blood pressure 94/40, O2 sats were 94%, inspired oxygen concentration was not recorded. At the time, I was seeing her, she was on 3 liters nasal cannula and she was 96% on that. GENERAL: She is a morbidly obese female, middle-aged, looks little older than her stated age, normocephalic, atraumatic, talking in slightly interrupted sentences, in mild to moderate respiratory distress. HEAD, EYES, EARS, NOSE AND THROAT: She is anicteric. No conjunctival erythema. Oropharynx is a Mallampati #3 oropharynx. No gross jugular venous distention. No thyromegaly. Grossly, no palpable lymph nodes in the supraclavicular or submandibular lymph node chains. LUNGS: Auscultation of both lung helton significant only for diminished bilateral breath sounds. No active wheezing. HEART: Heart sounds 1 and 2 are heard at the time of my evaluation, regular rate and rhythm. No rubs or murmurs. ABDOMEN: Soft, full, bowel sounds were positive, but hypoactive. Tender in the right lower quadrant area. There is a dressing to the right lower abdomen. It was clean. No significant bleeding around it. No palpable hepatosplenomegaly. EXTREMITIES: Without overt digital clubbing or cyanosis and no pedal edema. Dorsalis pedis pulses were palpable bilaterally. The skin was of poor turgor without overt cellulitis or rash except for the right lower quadrant area, perioperative area. NEUROLOGIC: Pupils are equal, round, reactive to light. Extraocular muscle movements are intact. She moved all 4 extremities spontaneously. LABORATORY DATA: From my review are as follows: Admission white cell count 207,500, hemoglobin 11.2, hematocrit 34.6, platelet count 585. No significant band forms reported. Serum sodium was 136, potassium 3.6, chloride 98, bicarbonate 26, BUN 15, creatinine 0.3, glucose 106. Lactic acid level was within normal limits, 1.7. Liver function test essentially within normal limits except for albumin that was low at 1.8. Lipase was low. Urinalysis was negative for nitrites and leukocyte esterase. Blood cultures have been sent, no growth to date. The surgical culture was growing gram-negative rods. Sensitivities and ID are still pending. As mentioned, she did have a CT scan of her abdomen. I also take the chance to look at the long windows and really no focal infiltrate in the lung windows or significant atelectasis. There was significant motion artifact. The CT main finding was a large fluid and gas collection seen in the lateral aspect of the right mid abdomen with involvement of subcutaneous tissues and inferiorly towards the pelvis suggested an abscess. ASSESSMENT: 1. Sepsis syndrome. 2. Necrotizing fasciitis involving the right lower quadrant pannus. 3. Leukocytosis. 4. Mild hyponatremia. 5. Morbid obesity. 6. History of chronic obstructive pulmonary disease. 7. Acute hypoxemic respiratory failure. PLAN: Continue supplemental oxygen to keep sats greater than or equal to about 90%. If she decompensates further. I will deploy bilevel positive air pressure ventilation therapy; however, because of the risk of gastric insufflation and nausea, vomiting, I will hold on scheduling it at this point. She is already on broad-spectrum anti-infective therapy. Infectious disease consultation has been placed. I will defer to them. I will place a PICC line in this lady with relative hypotension just in case she decompensates further and needs vasopressor support. The Samuels catheter is going to be discontinued if it is okay with the surgeon if it will not interfere with wound healing. I will start her on GI prophylaxis. Aspiration precautions will be maintained. Weight loss has been subtly counseled at bedside and I will follow up on this. She is appropriately on DVT prophylaxis. Flu and pneumonia vaccination will be addressed per protocol. There is a chance she will be going back to the operating room according to the surgeon whom I have discussed with at length. We will follow along. We will make further recommendations as the picture progresses/becomes clearer. She is critically ill with hypotension and other evidence of sepsis with an altered mental status at risk for further deterioration in the respiratory, cardiovascular, and neurologic symptoms. At this time, we spent about 35-40 minutes of critical care time without overlap and excluding any procedural time that may be necessary. JOB# [id number] BREN[facility]/ROM STONER
[2017-10-23] MEDS: D5/0.45NS 1,000 ML IV SCH (04:09)
[2017-10-23 04:58] LABS: Hematocrit 40.7 % (30.3-42.9); Mean Corpuscular HGB Conc 32 % (30-34); Mean Corpuscular Hemoglobin 28 pg (28-32); Mean Corpuscular Volume 88 fl (79-97); Platelet Count 293 K/mm3 (140-440); Red Blood Count 4.62 M/mm3 (3.65-5.03); Red Cell Distribution Width 15.6 % (13.2-15.2)
[2017-10-23 05:01] LABS: Calcium 7.5 mg/dL (8.4-10.2)
[2017-10-23] MEDS: ZOSYN/NS 4.5GM/100ML 4.5 GM/100 ML VIAL IV SCH ×3 (06:09→23:52)
[2017-10-23] MEDS: SODIUM CHLORIDE FLUSH SYRINGE 10 ML IV PRN (06:18)
[2017-10-23] MEDS: PEPCID PO SCH (09:25)
[2017-10-23] MEDS: LOVENOX SUB-Q SCH (09:26)
[2017-10-23] MEDS: SODIUM CHLORIDE FLUSH SYRINGE 10 ML IV SCH ×2 (09:27→22:12)
--- NOTE | 2017-10-23 10:32 | Progress Note ---
Assessment and Plan Assessment: 1) Sepsis: improving. Etiology most likely abdominal wall abscess. 2) Large abdominal wall abscess with necrotizing fascitis. -CT abd showed large fluid collection [id number] cm with gas located to the right mid abdominal area in the SQ tissue extending inferiorly to the pelvis. CBD duct with stent, cholelithiasis, small non obstructive jose kidney stones and moderate umbilical hernia. -S/P OR 10/20/17 for excisional debridement of abdominal wall abscess - Gram stain +GNR and GPC in clusters, OR cx + E coli and Klebsiella sen to ceftriaxone -CRP=19 3) Morbid obesity 4) Cholelithiasis s/p CBD stent 5) COPD Plan: -follow-up OR cultures -stop contact isolation -stop vancomycin -continue zosyn -will require IV abx for 2-3 weeks -wound care consult -supervisor case loading to consider exploring [facility] transfer - pt is unfunded and large complex wound from necrotizing fascitis, needing advanced wound care and IV antibiotics I am rounding on 10/28 Thank you for your consultation, will follow up with you. Pauly Yao MD Infectious Diseases Specialist [facility] ([facility]) M [phone] O [phone] Subjective Date of service: 10/23/17 Principal diagnosis: Acute Hypoxemic Hypercapnic Resp Failure; Sepsis; Necrotizing fascitis Interval history: Feels better, still c/o RLQ abdominal pain, no fever, went to the OR yest/ Microbiology: Blood cultures: 10/19 ngtd Urine cultures: 10/19 neg Respiratory cultures: Wound cultures: 10/21 Ecoli and Klebsiella Abx: zosyn vanco Objective - Exam Narrative Exam: General appearance: Alert in NAD, conversant obese Eyes: anicteric sclerae, moist conjunctivae; no lid-lag; PERRLA HENT: Atraumatic; oropharynx clear. Neck: Trachea midline; supple, no thyromegaly or lymphadenopathy Lungs: CTA, with normal respiratory effort and no intercostal retractions CV: RRR, no murmurs Abdomen: Soft, large pannus, RLQ with surgical dressings surrounding marked edema and tenderness Extremities: No peripheral edema or extremity lymphadenopathy Skin: Normal temperature, turgor and texture; no rash, ulcers or subcutaneous nodules Psych: Appropriate affect, alert and oriented to person, place and time. Neuro: alert and oriented x 3. Moving all extermities Lines: No CVL / PICC - Constitutional Vitals: Vital Signs Temp Pulse Resp BP Pulse Ox 97.1 F L 77 23 118/50 97 10/23/17 07:55 10/23/17 10:00 10/23/17 10:00 10/23/17 10:00 10/23/17 10:00 Temperature -Last 24 Hours Temperature 97.1 F Temperature 97.1 F Temperature 98.3 F Temperature 97.8 F Temperature 98 F - Labs CBC & Chem 7: 10/23/17 03:55 10/23/17 03:55 Labs: Abnormal lab results 10/22/17 10/22/17 10/22/17 Range/Units 10:15 13:29 20:49 WBC (4.5-11.0) K/mm3 RDW (13.2-15.2) % POC ABG pH 7.255 L (7.35-7.45) POC ABG pCO2 50.5 H (35-45) Chloride (98-107) mmol/L Carbon Dioxide (22-30) mmol/L Creatinine (0.7-1.2) mg/dL Glucose (65-100) mg/dL Calcium (8.4-10.2) mg/dL Vancomycin Trough 54.6 H 33.7 H (5.0-20.0) ug/mL 10/22/17 10/23/17 10/23/17 Range/Units 22:56 03:55 03:55 WBC 13.0 H (4.5-11.0) K/mm3 RDW 15.6 H (13.2-15.2) % POC ABG pH (7.35-7.45) POC ABG pCO2 (35-45) Chloride 108.5 H (98-107) mmol/L Carbon Dioxide 21 L (22-30) mmol/L Creatinine 1.3 H D (0.7-1.2) mg/dL Glucose 107 H (65-100) mg/dL Calcium 7.5 L (8.4-10.2) mg/dL Vancomycin Trough 32.8 H (5.0-20.0) ug/mL
[2017-10-23] MEDS: VANCOMYCIN 2,000 MG in NACL 0.9% 500 ML 500 ML IV SCH (12:27)
--- NOTE | 2017-10-23 12:44 | Progress Note ---
Assessment and Plan 57 yo morbidly obese female s/p excisional debridement of abscess and necrotic tissue right lower abdomen on 10/20/17 and abdominal wound washout with wound vac placement POD 1 1. necrotizing fasciitis right lower abdominal wall 2. severe protein calorie malnutrition 3. sepsis 2/2 #1 Plan: 1. Reg diet with protein supplements QID 2. dc IVF 3. IV abx - on vanco, zosyn. final cultures pending 4. ID consulted and recs appreciated 5. DVT PPx 6. WBC improving 7. nutrition consult 8. 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 Continue wound vac to -125mmHg 9. PT consult, may be OOB to chair Thank you for this consultation, please call with questions or concerns Dispo: ok to downgrade to surgical floor D/W Dr. Oreilly Subjective Date of service: 10/23/17 Narrative: Pt seen and examined. c/o comfort of bed and not being able to sleep because of noise. No f/c, cp, sob. Mild abdominal pain at surgical site. Objective Vital Signs - 12hr 10/23/17 10/23/17 10/23/17 01:00 02:01 03:00 Temperature Pulse Rate 80 77 79 Pulse Rate [ Left Dorsalis Pedis] Pulse Rate [ Left Radial] Pulse Rate [ Right Dorsalis Pedis] Pulse Rate [ Right Radial] Respiratory 17 21 17 Rate Blood Pressure 120/48 131/53 113/48 O2 Sat by Pulse 96 95 97 Oximetry 10/23/17 10/23/17 10/23/17 04:00 05:01 06:00 Temperature Pulse Rate 79 75 78 Pulse Rate [ 79 Left Dorsalis Pedis] Pulse Rate [ 79 Left Radial] Pulse Rate [ 79 Right Dorsalis Pedis] Pulse Rate [ 79 Right Radial] Respiratory 20 22 20 Rate Blood Pressure 125/50 118/47 112/47 O2 Sat by Pulse 96 97 98 Oximetry 10/23/17 10/23/17 10/23/17 07:00 07:43 07:55 Temperature 97.1 F L Pulse Rate 73 Pulse Rate [ Left Dorsalis Pedis] Pulse Rate [ Left Radial] Pulse Rate [ Right Dorsalis Pedis] Pulse Rate [ Right Radial] Respiratory 19 Rate Blood Pressure 112/47 O2 Sat by Pulse 98 99 Oximetry 10/23/17 10/23/17 10/23/17 08:00 09:01 10:00 Temperature Pulse Rate 73 74 77 Pulse Rate [ 79 Left Dorsalis Pedis] Pulse Rate [ 79 Left Radial] Pulse Rate [ 79 Right Dorsalis Pedis] Pulse Rate [ 79 Right Radial] Respiratory 21 21 23 Rate Blood Pressure 115/52 109/49 118/50 O2 Sat by Pulse 99 98 97 Oximetry 10/23/17 10/23/17 11:00 12:00 Temperature Pulse Rate 76 81 Pulse Rate [ 79 Left Dorsalis Pedis] Pulse Rate [ 79 Left Radial] Pulse Rate [ 79 Right Dorsalis Pedis] Pulse Rate [ 79 Right Radial] Respiratory 14 18 Rate Blood Pressure 101/42 111/49 O2 Sat by Pulse 97 95 Oximetry - General physical appearance Narrative Exam: Gen: Awake, alert. Appears tired CV: S1, S2+ resp: even and unlabored Abd: soft, ND, midl TTP near surgical site R lower abdomen. Vac in place with good seal and no leak. Mild induration, no erythema. Ext: no c/c/e - Labs 10/23/17 03:55 10/23/17 03:55 Diabetes panel 10/23/17 Range/Units 03:55 Sodium 142 (137-145) mmol/L Potassium 4.3 (3.6-5.0) mmol/L Chloride 108.5 H (98-107) mmol/L Carbon Dioxide 21 L (22-30) mmol/L BUN 13 (7-17) mg/dL Creatinine 1.3 H D (0.7-1.2) mg/dL Glucose 107 H (65-100) mg/dL Calcium 7.5 L (8.4-10.2) mg/dL Calcium panel 10/23/17 Range/Units 03:55 Calcium 7.5 L (8.4-10.2) mg/dL Pituitary panel 10/23/17 Range/Units 03:55 Sodium 142 (137-145) mmol/L Potassium 4.3 (3.6-5.0) mmol/L Chloride 108.5 H (98-107) mmol/L Carbon Dioxide 21 L (22-30) mmol/L BUN 13 (7-17) mg/dL Creatinine 1.3 H D (0.7-1.2) mg/dL Glucose 107 H (65-100) mg/dL Calcium 7.5 L (8.4-10.2) mg/dL Adrenal panel 10/23/17 Range/Units 03:55 Sodium 142 (137-145) mmol/L Potassium 4.3 (3.6-5.0) mmol/L Chloride 108.5 H (98-107) mmol/L Carbon Dioxide 21 L (22-30) mmol/L BUN 13 (7-17) mg/dL Creatinine 1.3 H D (0.7-1.2) mg/dL Glucose 107 H (65-100) mg/dL Calcium 7.5 L (8.4-10.2) mg/dL
--- NOTE | 2017-10-23 14:39 | Progress Note ---
Assessment and Plan Sepsis syndrome. Acute Hypoxemic Hypercapnic Respiratory Failure Necrotizing fasciitis involving the right lower quadrant pannus. Leukocytosis. Mild hyponatremia. Morbid obesity. History of chronic obstructive pulmonary disease. Acute hypoxemic respiratory failure - repeat ABG prior to ICU transfer - continue BIPAP scheduled QHS with prn daytime use for alveolar recruitment and for respiratory acidosis component - likely MARIN/OHS also and will need outpatienty sleep clinic evaluation - continue wound care per RN & WCT - s/p wound vac placement - continue to wean oxygen to keep O2 Sats > 90% - repeat CXR in 48 hours to re-evaluate RLL atelectasis (repeat in am) - continue and complete AB's per ID recs - continue GI & VTE prophylaxis - Flu & pneumonia vaccination per protocol ... will transfer to surgical floor thereafter ... re-evaluate in am & prn ... 35' Subjective Date of service: 10/23/17 Principal diagnosis: Acute Hypoxemic Hypercapnic Resp Failure; Sepsis; Necrotizing fascitis Interval history: Patient is seen today for: Acute Hypoxemic Hypercapnic Resp Failure; Sepsis; Necrotizing fascitis Seen and examined at bedside; 24hour events reviewed; nursing and respiratory care staff consulted; no adverse overnight events reported to me; s/p wound-vac ; cleared by surgery for transfer; discussed rationale forBIPAP and risk of decompensation respiratory-walden without support to improve BIPAP compliance; No N/V/F/C Objective Vital Signs - 12hr 10/23/17 10/23/17 10/23/17 03:00 04:00 05:01 Temperature Pulse Rate 79 79 75 Pulse Rate [ 79 Left Dorsalis Pedis] Pulse Rate [ 79 Left Radial] Pulse Rate [ 79 Right Dorsalis Pedis] Pulse Rate [ 79 Right Radial] Respiratory 17 20 22 Rate Blood Pressure 113/48 125/50 118/47 O2 Sat by Pulse 97 96 97 Oximetry 10/23/17 10/23/17 10/23/17 06:00 07:00 07:43 Temperature Pulse Rate 78 73 Pulse Rate [ Left Dorsalis Pedis] Pulse Rate [ Left Radial] Pulse Rate [ Right Dorsalis Pedis] Pulse Rate [ Right Radial] Respiratory 20 19 Rate Blood Pressure 112/47 112/47 O2 Sat by Pulse 98 98 99 Oximetry 10/23/17 10/23/17 10/23/17 07:55 08:00 09:01 Temperature 97.1 F L Pulse Rate 73 74 Pulse Rate [ 79 Left Dorsalis Pedis] Pulse Rate [ 79 Left Radial] Pulse Rate [ 79 Right Dorsalis Pedis] Pulse Rate [ 79 Right Radial] Respiratory 21 21 Rate Blood Pressure 115/52 109/49 O2 Sat by Pulse 99 98 Oximetry 10/23/17 10/23/17 10/23/17 10:00 11:00 12:00 Temperature 97.2 F L Pulse Rate 77 76 81 Pulse Rate [ 79 Left Dorsalis Pedis] Pulse Rate [ 79 Left Radial] Pulse Rate [ 79 Right Dorsalis Pedis] Pulse Rate [ 79 Right Radial] Respiratory 23 14 18 Rate Blood Pressure 118/50 101/42 111/49 O2 Sat by Pulse 97 97 95 Oximetry 10/23/17 10/23/17 10/23/17 13:00 13:47 14:00 Temperature Pulse Rate 72 76 Pulse Rate [ Left Dorsalis Pedis] Pulse Rate [ Left Radial] Pulse Rate [ Right Dorsalis Pedis] Pulse Rate [ Right Radial] Respiratory 17 29 H Rate Blood Pressure 109/46 109/46 O2 Sat by Pulse 98 98 96 Oximetry Constitutional: no acute distress, lethargic, other (morbidly obese middle aged CF, normocephalic and atraumatic with mildly increased resp effort at rest) Eyes: non-icteric ENT: oropharynx moist, other (mallampatti 3) Neck: supple, no lymphadenopathy, no JVD, other (no thyromegaly) Effort: mildly labored Ascultation: Bilateral: diminished breath sounds Percussion: Bilateral: not dull Cardiovascular: regular rate and rhythm, other (No R/M) Gastrointestinal: normoactive bowel sounds, soft, non-tender, non-distended, other (dressing to RLQ patti-operative site) Integumentary: other (poor turgor; pannus) Extremities: no cyanosis, no edema, pink and warm, pulses normal Neurologic: normal mental status, non-focal exam, pupils equal and round, motor strength normal and Psychiatric: depressed CBC and BMP: 10/23/17 03:55 10/23/17 03:55 ABG, PT/INR, D-dimer: ABG POC ABG pH 7.270 (7.35-7.45) L 10/23/17 13:47 POC ABG pCO2 54.4 (35-45) H 10/23/17 13:47 POC ABG pO2 94 (80-105) 10/23/17 13:47 POC ABG HCO3 25.0 10/23/17 13:47 POC ABG Total CO2 27 10/23/17 13:47 POC ABG O2 Sat 96 10/23/17 13:47 Abnormal lab findings: Abnormal Labs 10/19/17 10/19/17 10/20/17 20:40 20:40 10:20 WBC 27.5 H 22.8 H RBC Hgb Hct RDW Plt Count 585 H 500 H Seg Neuts % (Manual) 94.0 H 76.5 H Lymphocytes % (Manual) 3.5 L 7.0 L Seg Neutrophils # Man 25.9 H 17.4 H Lymphocytes # (Manual) 1.0 L Monocytes # (Manual) 0.9 H POC ABG pH POC ABG pCO2 Sodium 136 L Chloride Carbon Dioxide Creatinine 0.3 L Glucose 106 H Calcium 7.9 L Alkaline Phosphatase 272 H C-Reactive Protein Total Protein 6.2 L Albumin 1.8 L Prealbumin Lipase 4 L Vancomycin Trough 10/21/17 10/21/17 10/21/17 05:15 05:15 05:15 WBC 21.4 H RBC 3.34 L Hgb 9.5 L Hct 30.0 L RDW Plt Count 459 H Seg Neuts % (Manual) 84.5 H Lymphocytes % (Manual) 1.0 L Seg Neutrophils # Man 18.1 H Lymphocytes # (Manual) 0.2 L Monocytes # (Manual) POC ABG pH POC ABG pCO2 Sodium Chloride 109.3 H Carbon Dioxide 21 L Creatinine 0.3 L Glucose Calcium 7.2 L Alkaline Phosphatase C-Reactive Protein 19.40 H Total Protein Albumin Prealbumin Lipase Vancomycin Trough 10/22/17 10/22/17 10/22/17 03:42 10:15 13:29 WBC RBC Hgb Hct RDW Plt Count Seg Neuts % (Manual) Lymphocytes % (Manual) Seg Neutrophils # Man Lymphocytes # (Manual) Monocytes # (Manual) POC ABG pH 7.255 L POC ABG pCO2 50.5 H Sodium Chloride Carbon Dioxide Creatinine Glucose Calcium Alkaline Phosphatase C-Reactive Protein Total Protein Albumin Prealbumin 0.050 L Lipase Vancomycin Trough 54.6 H 10/22/17 10/22/17 10/23/17 20:49 22:56 03:55 WBC 13.0 H RBC Hgb Hct RDW 15.6 H Plt Count Seg Neuts % (Manual) Lymphocytes % (Manual) Seg Neutrophils # Man Lymphocytes # (Manual) Monocytes # (Manual) POC ABG pH POC ABG pCO2 Sodium Chloride Carbon Dioxide Creatinine Glucose Calcium Alkaline Phosphatase C-Reactive Protein Total Protein Albumin Prealbumin Lipase Vancomycin Trough 33.7 H 32.8 H 10/23/17 10/23/17 03:55 13:47 WBC RBC Hgb Hct RDW Plt Count Seg Neuts % (Manual) Lymphocytes % (Manual) Seg Neutrophils # Man Lymphocytes # (Manual) Monocytes # (Manual) POC ABG pH 7.270 L POC ABG pCO2 54.4 H Sodium Chloride 108.5 H Carbon Dioxide 21 L Creatinine 1.3 H D Glucose 107 H Calcium 7.5 L Alkaline Phosphatase C-Reactive Protein Total Protein Albumin Prealbumin Lipase Vancomycin Trough Allied health notes reviewed: nursing
--- NOTE | 2017-10-23 17:03 | Progress Note ---
Assessment and Plan Assessment and plan: 57-year-old woman s/p biliary stent for obstructive jaundice comes to the ER for evaluation of abdominal pain. Pain is in the right lower abdomen, which she described as sharp pain, constant, intensity 8/10, radiating to the back, she cannot identify exacerbating or relieving factors. she admits to diarrhea for 1 week. non bloody, no fever or chills procedures 10/20; excisional debridement of necrotic skin, subcutaneous tissue, and fascia of abdominal wall 10/22; Abdominal wound washout and placement of negative pressure wound VAC therapy Sepsis due to large abscess of R lower abdominal wall/pannus -sp I and D, continue abx,cultures growing gram neg rods per ID "-contact isolation-continue vancomycin, zosyn and clindamycin for now -will require IV abx for 2-3 weeks " Acute Hypoxemic Hypercapnic Respiratory Failure; -per pulm" continue BIPAP scheduled QHS with prn daytime use for alveolar recruitment and for respiratory acidosis component" - likely MAIRN/OHS also and will need outpatient sleep clinic evaluation Morbid Obesity/ severe protein calorie malnutrition; lifestyle modification Diarrhea has now resolved; no further workup indicated History Interval history: Review of systems Constitutional: No fevers, no malaise, no joint pains CVS: No chest pain, no orthopnea, no dyspnea on exertion, no pedal edema GI: post op abdominal pain is under control per patient, no diarrhea, no vomiting, no constipation Respiratory: No shortness of breath, no wheezing, no coughing Hospitalist Physical - Physical exam Narrative exam: General.: Appears well, no distress, nontoxic, unkempt, HEENT: Moist mucous membranes, extraocular muscles intact, no lymphadenopathy Neck: supple Cardiac: S1-S2 heard Lungs: clear to auscultation bilaterally Abdomen: soft ,wound dressing to pannus noted, was not removed Extremities: no edema clubbing or cyanosis Skin: no rash or lesions Neurologic: no gross focal deficits Psych: appropriate behavior, appropriate mood, corporative, judgment intact - Constitutional Vitals: Temp Pulse Resp BP Pulse Ox 97.2 F L 83 25 H 106/50 95 10/23/17 12:00 10/23/17 15:01 10/23/17 15:01 10/23/17 15:01 10/23/17 15:01 Results - Labs CBC & Chem 7: 10/23/17 03:55 10/23/17 03:55 Labs: Laboratory Last Values WBC 13.0 K/mm3 (4.5-11.0) H 10/23/17 03:55 RBC 4.62 M/mm3 (3.65-5.03) 10/23/17 03:55 Hgb 13.0 gm/dl (10.1-14.3) D 10/23/17 03:55 Hct 40.7 % (30.3-42.9) D 10/23/17 03:55 MCV 88 fl (79-97) 10/23/17 03:55 MCH 28 pg (28-32) 10/23/17 03:55 MCHC 32 % (30-34) 10/23/17 03:55 RDW 15.6 % (13.2-15.2) H 10/23/17 03:55 Plt Count 293 K/mm3 (140-440) 10/23/17 03:55 Add Manual Diff Complete 10/21/17 05:15 Total Counted 200 10/21/17 05:15 Seg Neutrophils % Surface Water Manager 10/21/17 05:15 Seg Neuts % (Manual) 84.5 % (40.0-70.0) H 10/21/17 05:15 Band Neutrophils % 12.5 % 10/21/17 05:15 Lymphocytes % (Manual) 1.0 % (13.4-35.0) L 10/21/17 05:15 Reactive Lymphs % (Man) 0 % 10/21/17 05:15 Monocytes % (Manual) 1.0 % (0.0-7.3) 10/21/17 05:15 Eosinophils % (Manual) 0 % (0.0-4.3) 10/21/17 05:15 Basophils % (Manual) 0 % (0.0-1.8) 10/21/17 05:15 Metamyelocytes % 0.5 % 10/21/17 05:15 Myelocytes % 0.5 % 10/21/17 05:15 Promyelocytes % 0 % 10/21/17 05:15 Blast Cells % 0 % 10/21/17 05:15 Nucleated RBC % Not Reportable 10/21/17 05:15 Seg Neutrophils # Man 18.1 K/mm3 (1.8-7.7) H 10/21/17 05:15 Band Neutrophils # 2.7 K/mm3 10/21/17 05:15 Lymphocytes # (Manual) 0.2 K/mm3 (1.2-5.4) L 10/21/17 05:15 Abs React Lymphs (Man) 0.0 K/mm3 10/21/17 05:15 Monocytes # (Manual) 0.2 K/mm3 (0.0-0.8) 10/21/17 05:15 Eosinophils # (Manual) 0.0 K/mm3 (0.0-0.4) 10/21/17 05:15 Basophils # (Manual) 0.0 K/mm3 (0.0-0.1) 10/21/17 05:15 Metamyelocytes # 0.1 K/mm3 10/21/17 05:15 Myelocytes # 0.1 K/mm3 10/21/17 05:15 Promyelocytes # 0.0 K/mm3 10/21/17 05:15 Blast Cells # 0.0 K/mm3 10/21/17 05:15 WBC Morphology Not Reportable 10/21/17 05:15 Hypersegmented Neuts Not Reportable 10/21/17 05:15 Hyposegmented Neuts Not Reportable 10/21/17 05:15 Hypogranular Neuts Not Reportable 10/21/17 05:15 Smudge Cells Not Reportable 10/21/17 05:15 Toxic Granulation Not Reportable 10/21/17 05:15 Toxic Vacuolation Not Reportable 10/21/17 05:15 Dohle Bodies Not Reportable 10/21/17 05:15 Pelger-Huet Anomaly Not Reportable 10/21/17 05:15 Logan Rods Not Reportable 10/21/17 05:15 Platelet Estimate Consistent w auto 10/21/17 05:15 Clumped Platelets Not Reportable 10/21/17 05:15 Plt Clumps, EDTA Not Reportable 10/21/17 05:15 Large Platelets Not Reportable 10/21/17 05:15 Giant Platelets Not Reportable 10/21/17 05:15 Platelet Satelliting Not Reportable 10/21/17 05:15 Plt Morphology Comment Not Reportable 10/21/17 05:15 RBC Morphology Not Reportable 10/21/17 05:15 Dimorphic RBCs Not Reportable 10/21/17 05:15 Polychromasia Not Reportable 10/21/17 05:15 Hypochromasia Not Reportable 10/21/17 05:15 Poikilocytosis Not Reportable 10/21/17 05:15 Anisocytosis Not Reportable 10/21/17 05:15 Microcytosis Not Reportable 10/21/17 05:15 Macrocytosis Not Reportable 10/21/17 05:15 Spherocytes Not Reportable 10/21/17 05:15 Pappenheimer Bodies Not Reportable 10/21/17 05:15 Sickle Cells Not Reportable 10/21/17 05:15 Target Cells Not Reportable 10/21/17 05:15 Tear Drop Cells Not Reportable 10/21/17 05:15 Ovalocytes Not Reportable 10/21/17 05:15 Helmet Cells Not Reportable 10/21/17 05:15 [place] Bodies Not Reportable 10/21/17 05:15 [place] Rings Not Reportable 10/21/17 05:15 [place] Cells Not Reportable 10/21/17 05:15 Bite Cells Not Reportable 10/21/17 05:15 Crenated Cell Not Reportable 10/21/17 05:15 Elliptocytes Not Reportable 10/21/17 05:15 Acanthocytes (Spur) Not Reportable 10/21/17 05:15 Rouleaux Not Reportable 10/21/17 05:15 Hemoglobin C Crystals Not Reportable 10/21/17 05:15 Schistocytes Not Reportable 10/21/17 05:15 Malaria parasites Not Reportable 10/21/17 05:15 Abdirahman Bodies Not Reportable 10/21/17 05:15 Hem Pathologist Commnt No 10/21/17 05:15 POC ABG pH 7.270 (7.35-7.45) L 10/23/17 13:47 POC ABG pCO2 54.4 (35-45) H 10/23/17 13:47 POC ABG pO2 94 (80-105) 10/23/17 13:47 POC ABG HCO3 25.0 10/23/17 13:47 POC ABG Total CO2 27 10/23/17 13:47 POC ABG O2 Sat 96 10/23/17 13:47 POC ABG Base Excess -2 10/23/17 13:47 FiO2 28 % 10/23/17 13:47 Sodium 142 mmol/L (137-145) 10/23/17 03:55 Potassium 4.3 mmol/L (3.6-5.0) 10/23/17 03:55 Chloride 108.5 mmol/L (98-107) H 10/23/17 03:55 Carbon Dioxide 21 mmol/L (22-30) L 10/23/17 03:55 Anion Gap 17 mmol/L 10/23/17 03:55 BUN 13 mg/dL (7-17) 10/23/17 03:55 Creatinine 1.3 mg/dL (0.7-1.2) H D 10/23/17 03:55 Estimated GFR 42 ml/min 10/23/17 03:55 BUN/Creatinine Ratio 10 % 10/23/17 03:55 Glucose 107 mg/dL (65-100) H 10/23/17 03:55 Lactic Acid 1.70 mmol/L (0.7-2.0) 10/19/17 21:12 Calcium 7.5 mg/dL (8.4-10.2) L 10/23/17 03:55 Total Bilirubin 0.90 mg/dL (0.1-1.2) 10/19/17 20:40 AST 18 units/L (5-40) 10/19/17 20:40 ALT 13 units/L (7-56) 10/19/17 20:40 Alkaline Phosphatase 272 units/L (35-129) H 10/19/17 20:40 Troponin T < 0.010 ng/mL (0.00-0.029) 10/19/17 21:16 C-Reactive Protein 19.40 mg/dL (0.00-1.30) H 10/21/17 05:15 NT-Pro-B Natriuret Pep 307.7 pg/mL (0-900) 10/19/17 21:35 Total Protein 6.2 g/dL (6.3-8.2) L 10/19/17 20:40 Albumin 1.8 g/dL (3.9-5) L 10/19/17 20:40 Albumin/Globulin Ratio 0.4 % 10/19/17 20:40 Prealbumin 0.050 g/L (0.200-0.400) L 10/22/17 03:42 Lipase 4 units/L (13-60) L 10/19/17 20:40 Urine Color [place] (Yellow) 10/19/17 20:57 Urine Turbidity Clear (Clear) 10/19/17 20:57 Urine pH 6.0 (5.0-7.0) 10/19/17 20:57 Ur Specific [place] 1.019 (1.003-1.030) 10/19/17 20:57 Urine Protein <15 mg/dl mg/dL (Negative) 10/19/17 20:57 Urine Glucose (UA) Neg mg/dL (Negative) 10/19/17 20:57 Urine Ketones Tr mg/dL (Negative) 10/19/17 20:57 Urine Blood Neg (Negative) 10/19/17 20:57 Urine Nitrite Neg (Negative) 10/19/17 20:57 Urine Bilirubin Neg (Negative) 10/19/17 20:57 Urine Urobilinogen 4.0 mg/dL (<2.0) 10/19/17 20:57 Ur Leukocyte Esterase Neg (Negative) 10/19/17 20:57 Urine WBC (Auto) 3.0 /HPF (0.0-6.0) 10/19/17 20:57 Urine RBC (Auto) 5.0 /HPF (0.0-6.0) 10/19/17 20:57 U Epithel Cells (Auto) < 1.0 /HPF (0-13.0) 10/19/17 20:57 Urine Mucus Few /HPF 10/19/17 20:57 Vancomycin Trough 32.8 ug/mL (5.0-20.0) H 10/22/17 22:56
[2017-10-23] MEDS: NACL 0.9% 1000 ML 1,000 ML IV SCH (23:51)
[2017-10-24 07:43] LABS: Calcium 7.8 mg/dL (8.4-10.2)
[2017-10-24] MEDS: MORPHINE IV PRN ×2 (11:04→19:47)
[2017-10-24] MEDS: SODIUM CHLORIDE FLUSH SYRINGE 10 ML IV SCH ×2 (11:11→22:36)
[2017-10-24] MEDS: PEPCID PO SCH (11:11)
[2017-10-24] MEDS: LOVENOX SUB-Q SCH (11:11)
--- NOTE | 2017-10-24 11:56 | Progress Note ---
Assessment and Plan Assessment and plan: 57-year-old woman s/p biliary stent for obstructive jaundice comes to the ER for evaluation of abdominal pain. Pain is in the right lower abdomen, which she described as sharp pain, constant, intensity 8/10, radiating to the back, she cannot identify exacerbating or relieving factors. she admits to diarrhea for 1 week. non bloody, no fever or chills procedures 10/20; excisional debridement of necrotic skin, subcutaneous tissue, and fascia of abdominal wall 10/22; Abdominal wound washout and placement of negative pressure wound VAC therapy Sepsis due to large abscess of R lower abdominal wall/pannus -sp I and D, continue abx,cultures growing gram neg rods per ID "-contact isolation-continue vancomycin, zosyn and clindamycin for now -will require IV abx for 2-3 weeks " Acute Hypoxemic Hypercapnic Respiratory Failure; -per pulm" continue BIPAP scheduled QHS with prn daytime use for alveolar recruitment and for respiratory acidosis component" - likely MARIN/OHS also and will need outpatient sleep clinic evaluation Morbid Obesity/ severe protein calorie malnutrition; lifestyle modification Diarrhea has now resolved; no further workup indicated History Interval history: Review of systems Constitutional: No fevers, no malaise, no joint pains CVS: No chest pain, no orthopnea, no dyspnea on exertion, no pedal edema GI: post op abdominal pain is under control per patient, no diarrhea, no vomiting, no constipation Respiratory: No shortness of breath, no wheezing, no coughing Hospitalist Physical - Physical exam Narrative exam: General.: Appears well, no distress, nontoxic, unkempt, HEENT: Moist mucous membranes, extraocular muscles intact, no lymphadenopathy Neck: supple Cardiac: S1-S2 heard Lungs: clear to auscultation bilaterally Abdomen: soft ,wound dressing to pannus noted, was not removed Extremities: no edema clubbing or cyanosis Skin: no rash or lesions Neurologic: no gross focal deficits Psych: appropriate behavior, appropriate mood, corporative, judgment intact - Constitutional Vitals: Temp Pulse Resp BP Pulse Ox 97.2 F L 62 18 113/45 98 10/24/17 08:13 10/24/17 08:13 10/24/17 08:13 10/24/17 08:13 10/24/17 08:13 Results - Labs CBC & Chem 7: 10/23/17 03:55 10/24/17 07:03 Labs: Laboratory Last Values WBC 13.0 K/mm3 (4.5-11.0) H 10/23/17 03:55 RBC 4.62 M/mm3 (3.65-5.03) 10/23/17 03:55 Hgb 13.0 gm/dl (10.1-14.3) D 10/23/17 03:55 Hct 40.7 % (30.3-42.9) D 10/23/17 03:55 MCV 88 fl (79-97) 10/23/17 03:55 MCH 28 pg (28-32) 10/23/17 03:55 MCHC 32 % (30-34) 10/23/17 03:55 RDW 15.6 % (13.2-15.2) H 10/23/17 03:55 Plt Count 293 K/mm3 (140-440) 10/23/17 03:55 Add Manual Diff Complete 10/21/17 05:15 Total Counted 200 10/21/17 05:15 Seg Neutrophils % Hand Stapler 10/21/17 05:15 Seg Neuts % (Manual) 84.5 % (40.0-70.0) H 10/21/17 05:15 Band Neutrophils % 12.5 % 10/21/17 05:15 Lymphocytes % (Manual) 1.0 % (13.4-35.0) L 10/21/17 05:15 Reactive Lymphs % (Man) 0 % 10/21/17 05:15 Monocytes % (Manual) 1.0 % (0.0-7.3) 10/21/17 05:15 Eosinophils % (Manual) 0 % (0.0-4.3) 10/21/17 05:15 Basophils % (Manual) 0 % (0.0-1.8) 10/21/17 05:15 Metamyelocytes % 0.5 % 10/21/17 05:15 Myelocytes % 0.5 % 10/21/17 05:15 Promyelocytes % 0 % 10/21/17 05:15 Blast Cells % 0 % 10/21/17 05:15 Nucleated RBC % Not Reportable 10/21/17 05:15 Seg Neutrophils # Man 18.1 K/mm3 (1.8-7.7) H 10/21/17 05:15 Band Neutrophils # 2.7 K/mm3 10/21/17 05:15 Lymphocytes # (Manual) 0.2 K/mm3 (1.2-5.4) L 10/21/17 05:15 Abs React Lymphs (Man) 0.0 K/mm3 10/21/17 05:15 Monocytes # (Manual) 0.2 K/mm3 (0.0-0.8) 10/21/17 05:15 Eosinophils # (Manual) 0.0 K/mm3 (0.0-0.4) 10/21/17 05:15 Basophils # (Manual) 0.0 K/mm3 (0.0-0.1) 10/21/17 05:15 Metamyelocytes # 0.1 K/mm3 10/21/17 05:15 Myelocytes # 0.1 K/mm3 10/21/17 05:15 Promyelocytes # 0.0 K/mm3 10/21/17 05:15 Blast Cells # 0.0 K/mm3 10/21/17 05:15 WBC Morphology Not Reportable 10/21/17 05:15 Hypersegmented Neuts Not Reportable 10/21/17 05:15 Hyposegmented Neuts Not Reportable 10/21/17 05:15 Hypogranular Neuts Not Reportable 10/21/17 05:15 Smudge Cells Not Reportable 10/21/17 05:15 Toxic Granulation Not Reportable 10/21/17 05:15 Toxic Vacuolation Not Reportable 10/21/17 05:15 Dohle Bodies Not Reportable 10/21/17 05:15 Pelger-Huet Anomaly Not Reportable 10/21/17 05:15 Logan Rods Not Reportable 10/21/17 05:15 Platelet Estimate Consistent w auto 10/21/17 05:15 Clumped Platelets Not Reportable 10/21/17 05:15 Plt Clumps, EDTA Not Reportable 10/21/17 05:15 Large Platelets Not Reportable 10/21/17 05:15 Giant Platelets Not Reportable 10/21/17 05:15 Platelet Satelliting Not Reportable 10/21/17 05:15 Plt Morphology Comment Not Reportable 10/21/17 05:15 RBC Morphology Not Reportable 10/21/17 05:15 Dimorphic RBCs Not Reportable 10/21/17 05:15 Polychromasia Not Reportable 10/21/17 05:15 Hypochromasia Not Reportable 10/21/17 05:15 Poikilocytosis Not Reportable 10/21/17 05:15 Anisocytosis Not Reportable 10/21/17 05:15 Microcytosis Not Reportable 10/21/17 05:15 Macrocytosis Not Reportable 10/21/17 05:15 Spherocytes Not Reportable 10/21/17 05:15 Pappenheimer Bodies Not Reportable 10/21/17 05:15 Sickle Cells Not Reportable 10/21/17 05:15 Target Cells Not Reportable 10/21/17 05:15 Tear Drop Cells Not Reportable 10/21/17 05:15 Ovalocytes Not Reportable 10/21/17 05:15 Helmet Cells Not Reportable 10/21/17 05:15 [place] Bodies Not Reportable 10/21/17 05:15 [place] Rings Not Reportable 10/21/17 05:15 [place] Cells Not Reportable 10/21/17 05:15 Bite Cells Not Reportable 10/21/17 05:15 Crenated Cell Not Reportable 10/21/17 05:15 Elliptocytes Not Reportable 10/21/17 05:15 Acanthocytes (Spur) Not Reportable 10/21/17 05:15 Rouleaux Not Reportable 10/21/17 05:15 Hemoglobin C Crystals Not Reportable 10/21/17 05:15 Schistocytes Not Reportable 10/21/17 05:15 Malaria parasites Not Reportable 10/21/17 05:15 Abdirahman Bodies Not Reportable 10/21/17 05:15 Hem Pathologist Commnt No 10/21/17 05:15 POC ABG pH 7.270 (7.35-7.45) L 10/23/17 13:47 POC ABG pCO2 54.4 (35-45) H 10/23/17 13:47 POC ABG pO2 94 (80-105) 10/23/17 13:47 POC ABG HCO3 25.0 10/23/17 13:47 POC ABG Total CO2 27 10/23/17 13:47 POC ABG O2 Sat 96 10/23/17 13:47 POC ABG Base Excess -2 10/23/17 13:47 FiO2 28 % 10/23/17 13:47 Sodium 145 mmol/L (137-145) 10/24/17 07:03 Potassium 3.7 mmol/L (3.6-5.0) 10/24/17 07:03 Chloride 109.3 mmol/L (98-107) H 10/24/17 07:03 Carbon Dioxide 21 mmol/L (22-30) L 10/24/17 07:03 Anion Gap 18 mmol/L 10/24/17 07:03 BUN 14 mg/dL (7-17) 10/24/17 07:03 Creatinine 1.9 mg/dL (0.7-1.2) H 10/24/17 07:03 Estimated GFR 27 ml/min 10/24/17 07:03 BUN/Creatinine Ratio 7 % 10/24/17 07:03 Glucose 88 mg/dL (65-100) 10/24/17 07:03 Lactic Acid 1.70 mmol/L (0.7-2.0) 10/19/17 21:12 Calcium 7.8 mg/dL (8.4-10.2) L 10/24/17 07:03 Total Bilirubin 0.90 mg/dL (0.1-1.2) 10/19/17 20:40 AST 18 units/L (5-40) 10/19/17 20:40 ALT 13 units/L (7-56) 10/19/17 20:40 Alkaline Phosphatase 272 units/L (35-129) H 10/19/17 20:40 Troponin T < 0.010 ng/mL (0.00-0.029) 10/19/17 21:16 C-Reactive Protein 19.40 mg/dL (0.00-1.30) H 10/21/17 05:15 NT-Pro-B Natriuret Pep 307.7 pg/mL (0-900) 10/19/17 21:35 Total Protein 6.2 g/dL (6.3-8.2) L 10/19/17 20:40 Albumin 1.8 g/dL (3.9-5) L 10/19/17 20:40 Albumin/Globulin Ratio 0.4 % 10/19/17 20:40 Prealbumin 0.050 g/L (0.200-0.400) L 10/22/17 03:42 Lipase 4 units/L (13-60) L 10/19/17 20:40 Urine Color [place] (Yellow) 10/19/17 20:57 Urine Turbidity Clear (Clear) 10/19/17 20:57 Urine pH 6.0 (5.0-7.0) 10/19/17 20:57 Ur Specific [place] 1.019 (1.003-1.030) 10/19/17 20:57 Urine Protein <15 mg/dl mg/dL (Negative) 10/19/17 20:57 Urine Glucose (UA) Neg mg/dL (Negative) 10/19/17 20:57 Urine Ketones Tr mg/dL (Negative) 10/19/17 20:57 Urine Blood Neg (Negative) 10/19/17 20:57 Urine Nitrite Neg (Negative) 10/19/17 20:57 Urine Bilirubin Neg (Negative) 10/19/17 20:57 Urine Urobilinogen 4.0 mg/dL (<2.0) 10/19/17 20:57 Ur Leukocyte Esterase Neg (Negative) 10/19/17 20:57 Urine WBC (Auto) 3.0 /HPF (0.0-6.0) 10/19/17 20:57 Urine RBC (Auto) 5.0 /HPF (0.0-6.0) 10/19/17 20:57 U Epithel Cells (Auto) < 1.0 /HPF (0-13.0) 10/19/17 20:57 Urine Mucus Few /HPF 10/19/17 20:57 Vancomycin Trough 32.8 ug/mL (5.0-20.0) H 10/22/17 22:56
--- NOTE | 2017-10-24 13:45 | Progress Note ---
Assessment and Plan 57 yo morbidly obese female s/p excisional debridement of abscess and necrotic tissue right lower abdomen on 10/20/17 and abdominal wound washout with wound vac placement POD 2 1. necrotizing fasciitis right lower abdominal wall 2. severe protein calorie malnutrition 3. sepsis 2/2 #1 Plan: 1. Reg diet with protein supplements QID 2. IV abx - on vanco, zosyn per ID 3. agree with dc benavides 4. DVT PPx 5. vac management per bell maker. Verge report to be filled out per bell maker 6. PT consulted, may be OOB to chair Spoke with patient regarding support at home and if she will be able to make weekly visits to wound care clinic, have help managing Vac, and be able to receive IV abx as outpatient. The patient lives with her daughter who has a multimedia manager job, goes to school, and is 7 months . She has no other family support. She has no source of income. She will need inpatient care for her wound and delivery of IV abx. Discussed with case management about possible transfer to [facility] for further treatment. Patient is agreeable to this. Thank you for this consultation, please call with questions or concerns Subjective Date of service: 10/24/17 Narrative: Pt seen and examined. She was downgraded from the ICU yesterday. Pt c/o that she does not like the food. She has not been OOB. I was called by bell maker regarding wound vac being off for an unknown period of time. Nursing on the floor did not know why and when it was turned off. Vac replaced by bell maker today. Objective Vital Signs - 12hr 10/24/17 10/24/17 10/24/17 03:30 08:13 13:10 Temperature 97.2 F L 94.4 F L Pulse Rate 72 62 83 Respiratory 12 18 18 Rate Blood Pressure 113/45 123/50 O2 Sat by Pulse 98 98 99 Oximetry - General physical appearance Narrative Exam: Gen: AAOx3. NAD CV: s1, S2+ Resp: even and unlabored Abd: soft, NT, wound vac in place with good seal and no leak Ext; no c/c/e : benavides with clear yellow urine - Labs 10/23/17 03:55 10/24/17 07:03 Diabetes panel 10/24/17 Range/Units 07:03 Sodium 145 (137-145) mmol/L Potassium 3.7 (3.6-5.0) mmol/L Chloride 109.3 H (98-107) mmol/L Carbon Dioxide 21 L (22-30) mmol/L BUN 14 (7-17) mg/dL Creatinine 1.9 H (0.7-1.2) mg/dL Glucose 88 (65-100) mg/dL Calcium 7.8 L (8.4-10.2) mg/dL Calcium panel 10/24/17 Range/Units 07:03 Calcium 7.8 L (8.4-10.2) mg/dL Pituitary panel 10/24/17 Range/Units 07:03 Sodium 145 (137-145) mmol/L Potassium 3.7 (3.6-5.0) mmol/L Chloride 109.3 H (98-107) mmol/L Carbon Dioxide 21 L (22-30) mmol/L BUN 14 (7-17) mg/dL Creatinine 1.9 H (0.7-1.2) mg/dL Glucose 88 (65-100) mg/dL Calcium 7.8 L (8.4-10.2) mg/dL Adrenal panel 10/24/17 Range/Units 07:03 Sodium 145 (137-145) mmol/L Potassium 3.7 (3.6-5.0) mmol/L Chloride 109.3 H (98-107) mmol/L Carbon Dioxide 21 L (22-30) mmol/L BUN 14 (7-17) mg/dL Creatinine 1.9 H (0.7-1.2) mg/dL Glucose 88 (65-100) mg/dL Calcium 7.8 L (8.4-10.2) mg/dL
--- NOTE | 2017-10-24 19:17 | Progress Note ---
Assessment and Plan Patient morbidley Obese.Patient alert, awake and resting on 2 litres O2. O2 saturation 98%. Patient has heavy history of smoking. Counselled to stop smoking. - Patient Problems (1) Abdominal wall abscess Current Visit: Yes Status: Acute Plan to address problem: Patient is on zosyn. Management as per surgery. (2) Sepsis Current Visit: Yes Status: Acute Qualifiers: Sepsis type: sepsis due to unspecified organism Qualified Code(s): A41.9 - Sepsis, unspecified organism Plan to address problem: Patient is on zosyn. (3) Biliary obstruction Current Visit: No Status: Acute Plan to address problem: Management as per surgery. (4) Cholelithiasis Current Visit: No Status: Acute Qualifiers: Cholelithiasis location: gallbladder and bile duct Plan to address problem: Management as per surgery. (5) COPD exacerbation Current Visit: Yes Status: Acute Plan to address problem: Bipap 16/6, rate 20, FIO2 30%. O2 2 litres via nasal canula when she is not on BIPAP Brovanna/Budesonide aerosol treatments q 12 hours. Albuterol/atrovent aerosol treatments q 6 hours prn for shortness of breath. Continue S/C Lovenox. Continue famotadine. Counselled to stop amoking. PFTs as out patient. (6) Acute hypercapnic respiratory failure Current Visit: Yes Status: Acute Plan to address problem: Bipap 16/6, rate 20, FIO2 30%. O2 2 litres via nasal canula when she is not on BIPAP Brovanna/Budesonide aerosol treatments q 12 hours. Albuterol/atrovent aerosol treatments q 6 hours prn for shortness of breath. Continue S/C Lovenox. Continue famotadine. Counselled to stop amoking. (7) Morbid obesity with BMI of 40.0-44.9, adult Current Visit: Yes Status: Acute Plan to address problem: Counselled to loose weight. (8) Sleep apnea in adult Current Visit: Yes Status: Acute Plan to address problem: Continue BIPAP Recommend sleep study as out patient. (9) Obesity hypoventilation syndrome Current Visit: Yes Status: Acute Plan to address problem: Continue BIPAP. Repeat blood gases. Sleep study as out patient. Subjective Date of service: 10/24/17 Principal diagnosis: Acute Hypoxemic Hypercapnic Resp Failure; Sepsis; Necrotizing fascitis Interval history: Patient morbidley Obese.Patient alert, awake and resting on 2 litres O2. O2 saturation 98%.Patient has heavy history of smoking. Counselled to stop smoking. Objective Vital Signs - 12hr 10/24/17 10/24/17 10/24/17 08:13 08:45 13:10 Temperature 97.2 F L 94.4 F L Pulse Rate 62 83 Respiratory 18 18 Rate Blood Pressure 113/45 123/50 Blood Pressure [Right] O2 Sat by Pulse 98 98 99 Oximetry 10/24/17 16:00 Temperature 97.7 F Pulse Rate 78 Respiratory 18 Rate Blood Pressure Blood Pressure 116/51 [Right] O2 Sat by Pulse 97 Oximetry Constitutional: no acute distress, alert Eyes: non-icteric ENT: oropharynx moist, other (mallampatti 3) Neck: supple, no lymphadenopathy, no JVD, other (no thyromegaly) Effort: mildly labored Ascultation: Bilateral: diminished breath sounds Percussion: Bilateral: not dull Cardiovascular: regular rate and rhythm, other (No R/M) Gastrointestinal: normoactive bowel sounds, soft, non-tender, non-distended, other (dressing to RLQ patti-operative site) Integumentary: cellulitis, other (poor turgor; pannus) Extremities: no cyanosis, no edema, pink and warm, pulses normal Neurologic: normal mental status, non-focal exam, pupils equal and round, motor strength normal and Psychiatric: depressed CBC and BMP: 10/23/17 03:55 10/24/17 07:03 ABG, PT/INR, D-dimer: ABG POC ABG pH 7.270 (7.35-7.45) L 10/23/17 13:47 POC ABG pCO2 54.4 (35-45) H 10/23/17 13:47 POC ABG pO2 94 (80-105) 10/23/17 13:47 POC ABG HCO3 25.0 10/23/17 13:47 POC ABG Total CO2 27 10/23/17 13:47 POC ABG O2 Sat 96 10/23/17 13:47 Abnormal lab findings: Abnormal Labs 10/19/17 10/19/17 10/20/17 20:40 20:40 10:20 WBC 27.5 H 22.8 H RBC Hgb Hct RDW Plt Count 585 H 500 H Seg Neuts % (Manual) 94.0 H 76.5 H Lymphocytes % (Manual) 3.5 L 7.0 L Seg Neutrophils # Man 25.9 H 17.4 H Lymphocytes # (Manual) 1.0 L Monocytes # (Manual) 0.9 H POC ABG pH POC ABG pCO2 Sodium 136 L Chloride Carbon Dioxide Creatinine 0.3 L Glucose 106 H Calcium 7.9 L Alkaline Phosphatase 272 H C-Reactive Protein Total Protein 6.2 L Albumin 1.8 L Prealbumin Lipase 4 L Vancomycin Trough 10/21/17 10/21/17 10/21/17 05:15 05:15 05:15 WBC 21.4 H RBC 3.34 L Hgb 9.5 L Hct 30.0 L RDW Plt Count 459 H Seg Neuts % (Manual) 84.5 H Lymphocytes % (Manual) 1.0 L Seg Neutrophils # Man 18.1 H Lymphocytes # (Manual) 0.2 L Monocytes # (Manual) POC ABG pH POC ABG pCO2 Sodium Chloride 109.3 H Carbon Dioxide 21 L Creatinine 0.3 L Glucose Calcium 7.2 L Alkaline Phosphatase C-Reactive Protein 19.40 H Total Protein Albumin Prealbumin Lipase Vancomycin Trough 10/22/17 10/22/17 10/22/17 03:42 10:15 13:29 WBC RBC Hgb Hct RDW Plt Count Seg Neuts % (Manual) Lymphocytes % (Manual) Seg Neutrophils # Man Lymphocytes # (Manual) Monocytes # (Manual) POC ABG pH 7.255 L POC ABG pCO2 50.5 H Sodium Chloride Carbon Dioxide Creatinine Glucose Calcium Alkaline Phosphatase C-Reactive Protein Total Protein Albumin Prealbumin 0.050 L Lipase Vancomycin Trough 54.6 H 10/22/17 10/22/17 10/23/17 20:49 22:56 03:55 WBC 13.0 H RBC Hgb Hct RDW 15.6 H Plt Count Seg Neuts % (Manual) Lymphocytes % (Manual) Seg Neutrophils # Man Lymphocytes # (Manual) Monocytes # (Manual) POC ABG pH POC ABG pCO2 Sodium Chloride Carbon Dioxide Creatinine Glucose Calcium Alkaline Phosphatase C-Reactive Protein Total Protein Albumin Prealbumin Lipase Vancomycin Trough 33.7 H 32.8 H 10/23/17 10/23/17 10/24/17 03:55 13:47 07:03 WBC RBC Hgb Hct RDW Plt Count Seg Neuts % (Manual) Lymphocytes % (Manual) Seg Neutrophils # Man Lymphocytes # (Manual) Monocytes # (Manual) POC ABG pH 7.270 L POC ABG pCO2 54.4 H Sodium Chloride 108.5 H 109.3 H Carbon Dioxide 21 L 21 L Creatinine 1.3 H D 1.9 H Glucose 107 H Calcium 7.5 L 7.8 L Alkaline Phosphatase C-Reactive Protein Total Protein Albumin Prealbumin Lipase Vancomycin Trough Chest x-ray: report reviewed (Mild cardiomegaly,mild basilar atelectasis.), image reviewed Allied health notes reviewed: nursing
[2017-10-24] MEDS: ZOSYN/NS 4.5GM/100ML 4.5 GM/100 ML VIAL IV SCH ×3 (19:39→22:36)
[2017-10-25] MEDS ORDERED: ATROVENT IH SCH (02:00)
[2017-10-25] MEDS ORDERED: PROVENTIL IH SCH (02:00)
[2017-10-25] MEDS: DUONEB *Not for PRN Use IH SCH ×3 (02:17→18:40)
[2017-10-25] MEDS: NACL 0.45% 1000 ML 1,000 ML IV SCH ×2 (04:25→12:42)
[2017-10-25] MEDS: ZOSYN/NS 4.5GM/100ML 4.5 GM/100 ML VIAL IV SCH ×2 (05:50→13:53)
[2017-10-25] MEDS: LOVENOX SUB-Q SCH (12:29)
[2017-10-25] MEDS: PEPCID PO SCH (12:29)
[2017-10-25] MEDS: SODIUM CHLORIDE FLUSH SYRINGE 10 ML IV SCH (12:30)
--- NOTE | 2017-10-25 13:06 | Progress Note ---
Assessment and Plan 57 yo morbidly obese female s/p excisional debridement of abscess and necrotic tissue right lower abdomen on 10/20/17 and abdominal wound washout with wound vac placement POD 3 1. necrotizing fasciitis right lower abdominal wall 2. severe protein calorie malnutrition 3. sepsis 2/2 #1 Plan: 1. Reg diet with protein supplements QID 2. IV abx - on vanco, zosyn per ID. cultures - Klebsiella and Escherichia coli 3. DVT PPx 4. vac management per sample clerk. 5. PT consulted, may be OOB to chair 6. Discussed case with Dr. Epperson at [facility] [place]. The patient is accepted and will be able to be transferred to tertiary care facility. She'll be transferred with wound VAC dressing Notified Dr. Kelly. Patient is agreeable to transfer. Thank you for this consultation, please call with questions or concerns Subjective Date of service: 10/25/17 Narrative: Patient seen and examined. No overnight events. No acute complaints. She has been out of bed with physical therapy. Objective Vital Signs - 12hr 10/25/17 10/25/17 10/25/17 02:00 02:22 04:45 Temperature 97.3 F L Pulse Rate Pulse Rate [ 84 82 Anterior] Respiratory 20 Rate Respiratory 16 16 Rate [Anterior] Blood Pressure 119/51 O2 Sat by Pulse Oximetry 10/25/17 10/25/17 10/25/17 07:46 07:47 08:33 Temperature 97.2 F L Pulse Rate 76 Pulse Rate [ 64 65 Anterior] Respiratory 16 Rate Respiratory 17 18 Rate [Anterior] Blood Pressure 137/53 O2 Sat by Pulse 96 97 Oximetry - General physical appearance Narrative Exam: General: Awake, alert, oriented 3. No apparent distress CV: S1, S2 present Respiratory: No audible wheezes Abdomen: Right lower abdominal wound VAC in place with good seal and no leak - Labs 10/23/17 03:55 10/24/17 07:03
--- NOTE | 2017-10-25 13:48 | Progress Note ---
Assessment and Plan Patient morbidley Obese.Patient alert, awake and resting on 2 litres O2. O2 saturation 96%. Patient has heavy history of smoking. Counselled to stop smoking. - Patient Problems (1) Abdominal wall abscess Current Visit: Yes Status: Acute Plan to address problem: Patient is on zosyn. Management as per surgery. (2) Sepsis Current Visit: Yes Status: Acute Qualifiers: Sepsis type: sepsis due to unspecified organism Qualified Code(s): A41.9 - Sepsis, unspecified organism Plan to address problem: Patient is on zosyn. (3) Biliary obstruction Current Visit: No Status: Acute Plan to address problem: Management as per surgery. (4) Cholelithiasis Current Visit: No Status: Acute Qualifiers: Cholelithiasis location: gallbladder and bile duct Plan to address problem: Management as per surgery. (5) COPD exacerbation Current Visit: Yes Status: Acute Plan to address problem: Bipap 16/6, rate 20, FIO2 30%. O2 2 litres via nasal canula when she is not on BIPAP Brovanna/Budesonide aerosol treatments q 12 hours. Albuterol/atrovent aerosol treatments q 6 hours prn for shortness of breath. Continue S/C Lovenox. Continue famotadine. Counselled to stop amoking. PFTs as out patient. (6) Acute hypercapnic respiratory failure Current Visit: Yes Status: Acute Plan to address problem: Bipap 16/6, rate 20, FIO2 30%. O2 2 litres via nasal canula when she is not on BIPAP Brovanna/Budesonide aerosol treatments q 12 hours. Albuterol/atrovent aerosol treatments q 6 hours prn for shortness of breath. Continue S/C Lovenox. Continue famotadine. Counselled to stop amoking. (7) Morbid obesity with BMI of 40.0-44.9, adult Current Visit: Yes Status: Acute Plan to address problem: Counselled to loose weight. (8) Sleep apnea in adult Current Visit: Yes Status: Acute Plan to address problem: Continue BIPAP Recommend sleep study as out patient. (9) Obesity hypoventilation syndrome Current Visit: Yes Status: Acute Plan to address problem: Patients day time PCO2 57, PO2 65, PH 7.27 Recommend continuous BIPAP at this time. Sleep study as out patient. Subjective Date of service: 10/25/17 Principal diagnosis: Acute Hypoxemic Hypercapnic Resp Failure; Sepsis; Necrotizing fascitis Interval history: Patient morbidley Obese.Patient alert, awake and resting on 2 litres O2. O2 saturation 98%.Patient has heavy history of smoking. Counselled to stop smoking. Objective Vital Signs - 12hr 10/25/17 10/25/17 10/25/17 02:00 02:22 04:45 Temperature 97.3 F L Pulse Rate Pulse Rate [ 84 82 Anterior] Respiratory 20 Rate Respiratory 16 16 Rate [Anterior] Blood Pressure 119/51 Blood Pressure [Right] O2 Sat by Pulse Oximetry 10/25/17 10/25/17 10/25/17 07:46 07:47 08:33 Temperature 97.2 F L Pulse Rate 76 Pulse Rate [ 64 65 Anterior] Respiratory 16 Rate Respiratory 17 18 Rate [Anterior] Blood Pressure 137/53 Blood Pressure [Right] O2 Sat by Pulse 96 97 Oximetry 10/25/17 11:35 Temperature 97.9 F Pulse Rate 80 Pulse Rate [ Anterior] Respiratory 18 Rate Respiratory Rate [Anterior] Blood Pressure Blood Pressure 140/60 [Right] O2 Sat by Pulse 99 Oximetry Constitutional: no acute distress, alert Eyes: non-icteric ENT: oropharynx moist, other (mallampatti 3) Neck: supple, no lymphadenopathy, no JVD, other (no thyromegaly) Effort: mildly labored Ascultation: Bilateral: diminished breath sounds Percussion: Bilateral: not dull Cardiovascular: regular rate and rhythm, other (No R/M) Gastrointestinal: normoactive bowel sounds, soft, non-tender, non-distended, other (dressing to RLQ patti-operative site) Integumentary: cellulitis, other (poor turgor; pannus) Extremities: no cyanosis, no edema, pink and warm, pulses normal Neurologic: normal mental status, non-focal exam, pupils equal and round, motor strength normal and Psychiatric: depressed CBC and BMP: 10/23/17 03:55 10/24/17 07:03 ABG, PT/INR, D-dimer: ABG POC ABG pH 7.272 (7.35-7.45) L 10/25/17 10:04 POC ABG pCO2 57.2 (35-45) H 10/25/17 10:04 POC ABG pO2 65 (80-105) L 10/25/17 10:04 POC ABG HCO3 26.4 10/25/17 10:04 POC ABG Total CO2 28 10/25/17 10:04 POC ABG O2 Sat 89 10/25/17 10:04 Abnormal lab findings: Abnormal Labs 10/19/17 10/19/17 10/20/17 20:40 20:40 10:20 WBC 27.5 H 22.8 H RBC Hgb Hct RDW Plt Count 585 H 500 H Seg Neuts % (Manual) 94.0 H 76.5 H Lymphocytes % (Manual) 3.5 L 7.0 L Seg Neutrophils # Man 25.9 H 17.4 H Lymphocytes # (Manual) 1.0 L Monocytes # (Manual) 0.9 H POC ABG pH POC ABG pCO2 POC ABG pO2 Sodium 136 L Chloride Carbon Dioxide Creatinine 0.3 L Glucose 106 H Calcium 7.9 L Alkaline Phosphatase 272 H C-Reactive Protein Total Protein 6.2 L Albumin 1.8 L Prealbumin Lipase 4 L Vancomycin Trough 10/21/17 10/21/17 10/21/17 05:15 05:15 05:15 WBC 21.4 H RBC 3.34 L Hgb 9.5 L Hct 30.0 L RDW Plt Count 459 H Seg Neuts % (Manual) 84.5 H Lymphocytes % (Manual) 1.0 L Seg Neutrophils # Man 18.1 H Lymphocytes # (Manual) 0.2 L Monocytes # (Manual) POC ABG pH POC ABG pCO2 POC ABG pO2 Sodium Chloride 109.3 H Carbon Dioxide 21 L Creatinine 0.3 L Glucose Calcium 7.2 L Alkaline Phosphatase C-Reactive Protein 19.40 H Total Protein Albumin Prealbumin Lipase Vancomycin Trough 10/22/17 10/22/17 10/22/17 03:42 10:15 13:29 WBC RBC Hgb Hct RDW Plt Count Seg Neuts % (Manual) Lymphocytes % (Manual) Seg Neutrophils # Man Lymphocytes # (Manual) Monocytes # (Manual) POC ABG pH 7.255 L POC ABG pCO2 50.5 H POC ABG pO2 Sodium Chloride Carbon Dioxide Creatinine Glucose Calcium Alkaline Phosphatase C-Reactive Protein Total Protein Albumin Prealbumin 0.050 L Lipase Vancomycin Trough 54.6 H 10/22/17 10/22/17 10/23/17 20:49 22:56 03:55 WBC 13.0 H RBC Hgb Hct RDW 15.6 H Plt Count Seg Neuts % (Manual) Lymphocytes % (Manual) Seg Neutrophils # Man Lymphocytes # (Manual) Monocytes # (Manual) POC ABG pH POC ABG pCO2 POC ABG pO2 Sodium Chloride Carbon Dioxide Creatinine Glucose Calcium Alkaline Phosphatase C-Reactive Protein Total Protein Albumin Prealbumin Lipase Vancomycin Trough 33.7 H 32.8 H 10/23/17 10/23/17 10/24/17 03:55 13:47 07:03 WBC RBC Hgb Hct RDW Plt Count Seg Neuts % (Manual) Lymphocytes % (Manual) Seg Neutrophils # Man Lymphocytes # (Manual) Monocytes # (Manual) POC ABG pH 7.270 L POC ABG pCO2 54.4 H POC ABG pO2 Sodium Chloride 108.5 H 109.3 H Carbon Dioxide 21 L 21 L Creatinine 1.3 H D 1.9 H Glucose 107 H Calcium 7.5 L 7.8 L Alkaline Phosphatase C-Reactive Protein Total Protein Albumin Prealbumin Lipase Vancomycin Trough 10/25/17 10/25/17 07:22 10:04 WBC RBC Hgb Hct RDW Plt Count Seg Neuts % (Manual) Lymphocytes % (Manual) Seg Neutrophils # Man Lymphocytes # (Manual) Monocytes # (Manual) POC ABG pH 7.272 L POC ABG pCO2 57.2 H POC ABG pO2 65 L Sodium Chloride Carbon Dioxide Creatinine Glucose Calcium Alkaline Phosphatase C-Reactive Protein Total Protein Albumin Prealbumin 0.070 L Lipase Vancomycin Trough Allied health notes reviewed: nursing
[2017-10-25 18:01] VITALS: BP 118/72
--- NOTE | 2017-10-25 18:13 | Discharge Summary ---
Providers - Providers Date of Admission: 10/20/17 00:14 Attending physician: ROHIT BENTON MD 10/19/17 23:39 Consult to Physician [CONS] Routine Comment: Consulting Provider: MYNOR FLORES Physician Instructions: Reason For Exam: abscess 10/20/17 03:14 Consult to Wound/ET Nurse [CONS] Routine Reason For Exam: wound eval 10/20/17 11:51 Consult to Dietitian/Nutrition [CONS] Routine Physician Instructions: Reason For Exam: Reason for Consult: malnutrition\`` 10/21/17 09:56 Consult to Physician [CONS] Routine Comment: Consulting Provider: KAT REYNOSO Physician Instructions: Reason For Exam: necrotizing fasciitis of abdominal wall 10/21/17 11:23 Consult to Physician [CONS] Routine Comment: Consulting Provider: CELESTE GOODE Physician Instructions: Reason For Exam: Critical Care Admit 10/21/17 14:34 PICC Line Insertion [Consult to PICC Line RN] [CONS] Stat Reason For Exam: bradycrdia and hypotesion at NOC Type Line:: Midline 10/21/17 14:56 Midline [Consult to PICC Line RN] [CONS] Routine Reason For Exam: for iv ABX Type Line:: Midline 10/22/17 11:15 Consult to Case Management [CONS] Stat Services Needed at Discharge: Other Notified:: ocean transportation intermediary Additional Physician Instructions: special education case manager to consider [facility] transfer - pt is unfunded and large complex wound from necrotizing fascitis, needing advanced wound care and IV antibiotics 10/22/17 12:48 Physical Therapy Evaluation and Treat [CONS] Routine Comment: Reason For Exam: debility; evaluate and treat Primary care physician: CUTTER V GROOVE Hospitalization Condition: Stable Procedures: procedures 10/20; excisional debridement of necrotic skin, subcutaneous tissue, and fascia of abdominal wall 10/22; Abdominal wound washout and placement of negative pressure wound VAC therapy Hospital course: 57-year-old woman s/p biliary stent for obstructive jaundice comes to the ER for evaluation of abdominal pain. Pain is in the right lower abdomen, which she described as sharp pain, constant, intensity 8/10, radiating to the back, she cannot identify exacerbating or relieving factors. she admits to diarrhea for 1 week. non bloody, no fever or chills. The diarrhea resolved without any specific intervention. She received iv abx went to the OR twice for I and D and debridement of abdominal wall/pannus abscess, after which wound vac was placed. She was rx with oxygen and BIPAP for obesity hypoventilation. She was then tranferred to [facility] where she can get higher level care for her skin, large abdominal walll abscess with necrotic skin Diagnosis Sepsis due to large abscess of R lower abdominal wall/pannus Acute Hypoxemic Hypercapnic Respiratory Failure; - likely MARIN/OHS Morbid Obesity/ severe protein calorie malnutrition; l Disposition: [id number] GEN HOSP IP Time spent for discharge: 33 minutes Core Measure Documentation - Palliative Care Palliative Care/ Comfort Measures: Not Applicable - Core Measures Any of the following diagnoses?: none Exam - Physical Exam Narrative exam: General.: Appears well, no distress, nontoxic, unkempt, HEENT: Moist mucous membranes, extraocular muscles intact, no lymphadenopathy Neck: supple Cardiac: S1-S2 heard Lungs: clear to auscultation bilaterally Abdomen: soft ,wound dressing to pannus noted, was not removed Extremities: no edema clubbing or cyanosis Skin: no rash or lesions Neurologic: no gross focal deficits Psych: appropriate behavior, appropriate mood, corporative, judgment intact - Constitutional Vitals: Temp Pulse Resp BP Pulse Ox 98.2 F 79 16 118/72 98 10/25/17 16:25 10/25/17 16:25 10/25/17 16:25 10/25/17 16:25 10/25/17 16:25 Plan Follow up with: PRIMARY MD MELVINA [Primary Care Provider] - 3-5 Days
== END 2017-10-25 20:36 | disposition home or self-care (01) | DRG 853 ==
LOC: ED 20:16 → 3A 10-20 00:14 → CC1 10-20 18:43 → 3B-SURG 10-23 16:33
PROVIDERS: ADMIT Internal Medicine; ATTEND Internal Medicine
PROC: 0JB80ZZ Excision of Abdomen Subcutaneous Tissue and Fascia, Open Approach (ICD-10-PCS; principal; 2017-10-20)
PROC: 2W13X6Z Compression of Abdominal Wall using Pressure Dressing (ICD-10-PCS; 2017-10-22)
PROC: 4A033R1 Measurement of Arterial Saturation, Peripheral, Percutaneous Approach (ICD-10-PCS; 2017-10-22)
PROC: 5A09357 Assistance with Respiratory Ventilation, Less than 24 Consecutive Hours, Continuous Positive Airway Pressure (ICD-10-PCS; 2017-10-22)
PROC: 5A09357 Assistance with Respiratory Ventilation, Less than 24 Consecutive Hours, Continuous Positive Airway Pressure (ICD-10-PCS; 2017-10-23)
DX: A41.9 Sepsis, unspecified organism (principal); J96.01 Acute respiratory failure with hypoxia; J96.02 Acute respiratory failure with hypercapnia; E43 Unspecified severe protein-calorie malnutrition; K83.1 Obstruction of bile duct; M72.6 Necrotizing fasciitis; L03.211 Cellulitis of face; L02.211 Cutaneous abscess of abdominal wall; E66.2 Morbid (severe) obesity with alveolar hypoventilation; Z68.41 Body mass index [BMI] 40.0-44.9, adult; J44.1 Chronic obstructive pulmonary disease with (acute) exacerbation; E87.1 Hypo-osmolality and hyponatremia; F17.200 Nicotine dependence, unspecified, uncomplicated; K80.20 Calculus of gallbladder without cholecystitis without obstruction; D72.829 Elevated white blood cell count, unspecified; I10 Essential (primary) hypertension; M19.90 Unspecified osteoarthritis, unspecified site; Z71.6 Tobacco abuse counseling; Z79.899 Other long term (current) drug therapy; Z82.49 Family history of ischemic heart disease and other diseases of the circulatory system
CPT/HCPCS: 36415; 36600; 71045; 74177; 80048; 80053; 80202; 81001; 82140; 82803; 83690; 83880; 84134; 84484; 85007; 85025; 85027; 86140; 87040; 87075; 87076; 87086; 87116; 87186; 94640; 94660; 94760; 96365; A4217; J0330; J1170; J1650; J2250; J2270; J2370; J2405; J2543; J2704; J2710; J3010; J3370; J7030; J7040; Q9967

== ENCOUNTER 2019-04-03 11:45 | Emergency (ER) | payer SELFPAY ==
--- NOTE | 2019-04-03 14:07 | Emergency Department Report ---
ED General Adult HPI - General Chief complaint: Extremity Problem,Nontraumatic Stated complaint: EDEMA Source: patient Mode of arrival: Ambulatory Limitations: No Limitations - History of Present Illness Initial comments: This is a 58-year-old female presents with complaining of bilateral lower leg swelling and pain. Swelling limiting her ability to walk. She denies chest pain , cough sob. -: week(s) - Related Data Previous Rx's Medication Instructions Recorded Last Taken Type LORazepam [Ativan] 1 mg PO QHS #30 tab 04/03/19 Unknown Rx Morphine [Morphine ORAL SOLN 10 10 mg PO Q4HR PRN #30 ml 04/03/19 Unknown Rx MG/5 ML] Allergies Allergy/AdvReac Type Severity Reaction Status Date / Time No Known Allergies Allergy Verified 07/13/16 14:25 ED Review of Systems ROS: Stated complaint: EDEMA Other details as noted in HPI Comment: All other systems reviewed and negative Constitutional: no symptoms reported Cardiovascular: edema. denies: chest pain, palpitations Endocrine: no symptoms reported Gastrointestinal: abdominal pain. denies: diarrhea, constipation ED Past Medical Hx - Past Medical History Previous Medical History?: Yes Hx Hypertension: Yes (no meds) Hx Congestive Heart Failure: No Hx Diabetes: No Hx Deep Vein Thrombosis: No Hx Liver Disease: Yes (h/o Biliary obstruction, jaundiced, s/p ERCP 2016) Hx Arthritis: Yes Hx Asthma: Yes (Rarely requires inhaler for this or for COPD) Hx COPD: Yes Additional medical history: abd. pain, Leg swelling. morbid obesity - Surgical History Past Surgical History?: Yes Hx Pacemaker: No Hx Internal Defibrillator: No Additional Surgical History: Oli carpel tunnel surgery - Social History Smoking Status: Never Smoker Substance Use Type: None - Medications Home Medications: Home Medications Medication Instructions Recorded Confirmed Last Taken Type LORazepam [Ativan] 1 mg PO QHS #30 tab 04/03/19 Unknown Rx Morphine [Morphine ORAL SOLN 10 10 mg PO Q4HR PRN #30 ml 04/03/19 Unknown Rx MG/5 ML] ED Physical Exam - General Limitations: No Limitations General appearance: alert, in no apparent distress - Head Head exam: Present: atraumatic - Eye Eye exam: Present: normal appearance. Absent: scleral icterus, conjunctival injection, periorbital swelling - ENT ENT exam: Present: normal orophraynx, mucous membranes moist - Respiratory Respiratory exam: Present: normal lung sounds bilaterally - Cardiovascular Cardiovascular Exam: Present: irregular rhythm - GI/Abdominal GI/Abdominal exam: Present: hypoactive bowel sounds, other (Large pannus with what appears to be hernia, redness lower abdomen, skin intact) - Extremities Exam Extremities exam: Present: other (anascara from abdomen down to thighs and legs. suprabic area, anterior and posterior thighs with erythema no break in skin . ) - Neurological Exam Neurological exam: Present: alert, oriented X3 - Psychiatric Psychiatric exam: Present: normal affect - Skin Skin exam: Present: rash (red rash beneath both breast appears to be candiasis.), erythema, other (weeping edema) ED Course Vital Signs 04/03/19 04/03/19 04/03/19 13:11 18:31 19:31 Temperature 98 F Pulse Rate 74 97 H 108 H Respiratory 16 16 14 Rate Blood Pressure 141/70 116/51 Blood Pressure 132/48 [Left] O2 Sat by Pulse 96 95 94 Oximetry 04/03/19 04/03/19 04/03/19 19:45 20:00 20:01 Temperature 97.9 F Pulse Rate 93 H 99 H Respiratory 18 19 Rate Blood Pressure 96/45 136/40 Blood Pressure [Left] O2 Sat by Pulse 95 97 Oximetry 04/03/19 04/03/19 04/03/19 20:15 20:31 20:45 Temperature Pulse Rate 99 H 99 H 96 H Respiratory 16 16 17 Rate Blood Pressure 134/39 139/50 128/58 Blood Pressure [Left] O2 Sat by Pulse 96 98 99 Oximetry 04/03/19 04/03/19 04/03/19 21:01 21:15 21:31 Temperature Pulse Rate 73 114 H 97 H Respiratory 25 H 37 H 16 Rate Blood Pressure 126/58 145/86 124/52 Blood Pressure [Left] O2 Sat by Pulse 94 96 97 Oximetry 04/03/19 04/03/19 04/03/19 21:45 22:01 22:15 Temperature Pulse Rate 92 H 105 H 98 H Respiratory 17 18 19 Rate Blood Pressure 126/41 129/54 129/54 Blood Pressure [Left] O2 Sat by Pulse 98 92 91 Oximetry 04/03/19 04/03/19 04/03/19 22:31 22:45 23:01 Temperature Pulse Rate 96 H 96 H 99 H Respiratory 17 16 26 H Rate Blood Pressure 126/40 144/46 135/45 Blood Pressure [Left] O2 Sat by Pulse 95 96 97 Oximetry 04/03/19 04/03/19 04/03/19 23:07 23:15 23:31 Temperature Pulse Rate 84 98 H 98 H Respiratory 24 18 31 H Rate Blood Pressure 135/45 135/45 121/46 Blood Pressure [Left] O2 Sat by Pulse 96 88 93 Oximetry 04/03/19 04/04/19 23:45 00:01 Temperature Pulse Rate 97 H 100 H Respiratory 23 24 Rate Blood Pressure 137/50 129/33 Blood Pressure [Left] O2 Sat by Pulse 97 98 Oximetry - Reevaluation(s) Reevaluation #1: 04/03/19 16:46 Pt in no distress with no current complaints. VSS O2 sat 100 with nc 2L. Pt turned with assistance of nurse. Erythema to posterior thighs and sacrum. Skin intact. She incontinent of urine. Dried brown stool noted on buttocks. Extremely edematous from abdomen down to feet. Reevaluation #2: 04/03/19 17:27 Dr Best called for admission ED Medical Decision Making - Lab Data Result diagrams: 04/03/19 14:36 04/03/19 14:36 - Radiology Data Radiology results: report reviewed chest xray IMPRESSION: 1. There is mild perihilar edema and venous congestion. - Medical Decision Making 58 yo female c/o bilateral lower leg swelling. On initial evaluation no clear indication for SIRS, she was afebrile, HR 74, BP141/70. Labs returned with WBC 20.7 Lactic acid 1.1 Chest x-ray with venous congestion. Vancomycin 1gm ordered. Will contact Dr. Best for admission: Orlando Bennett. Critical Care Time: No Critical care attestation.: If time is entered above; I have spent that time in minutes in the direct care of this critically ill patient, excluding procedure time. ED Disposition Clinical Impression: Anasarca Cellulitis Qualifiers: Site of cellulitis: extremity Site of cellulitis of extremity: lower extremity Laterality: unspecified laterality Qualified Code(s): L03.119 - Cellulitis of unspecified part of limb Disposition: OP ADMIT IP TO THIS HOSP Is pt being admited?: No Does the pt Need Aspirin: No Condition: Stable Prescriptions: LORazepam [Ativan] 1 mg PO QHS #30 tab Morphine [Morphine ORAL SOLN 10 MG/5 ML] 10 mg PO Q4HR PRN #30 ml PRN Reason: Pain , Severe (7-10) Referrals: PRIMARY CARE, [Primary Care Provider] - 3-5 Days Time of Disposition: 17:27
--- NOTE | 2019-04-03 15:06 | XRay Report ---
CHEST 1 VIEW INDICATION / CLINICAL INFORMATION: EDEMA. COMPARISON: 10/22/2017 FINDINGS: SUPPORT DEVICES: None. HEART / MEDIASTINUM: There is prominence the cardiac silhouette LUNGS / PLEURA: There is elevation right hemidiaphragm. There is mild right basilar atelectasis or sc ar. There is mild perihilar edema and mild venous congestion.. No pneumothorax. ADDITIONAL FINDINGS: No significant additional findings. IMPRESSION: 1. There is mild perihilar edema and venous congestion. Signer Name: Armand Dominguez MD Signed: 04/03/2019 3:01 PM Workstation Name: [id number]
[2019-04-03 15:28] LABS: INR 1.01 (0.87-1.13)
[2019-04-03 15:29] LABS: Partial Thromboplastin Time 21.5 Sec. (24.2-36.6)
[2019-04-03 15:36] LABS: Mean Corpuscular HGB Conc 31 % (30-34); Mean Corpuscular Volume 80 fl (79-97)
[2019-04-03 15:38] LABS: Hematocrit 42.5 % (30.3-42.9); Hemoglobin 13.2 gm/dl (10.1-14.3)
[2019-04-03 16:18] LABS: Alanine Aminotransferase 12 units/L (7-56); Albumin 2.4 g/dL (3.9-5); BUN/Creatinine Ratio 35; Blood Urea Nitrogen 14 mg/dL (7-17); Calcium 8.7 mg/dL (8.4-10.2); Hemolysis Index 14
[2019-04-03 17:01] LABS: Band Neutrophils # (Manual) 0.8 K/mm3; Basophils % (Manual) 0 % (0.0-1.8); Eosinophils % (Manual) 0 % (0.0-4.3); Total Cells Counted 100
[2019-04-03 17:02] LABS: Anisocytosis 1+; Hypochromasia 1+; Large Platelets 1+; Ovalocytes Rare; Platelet Estimate Consistent w Auto
[2019-04-03] MEDS ORDERED: VANCOMYCIN 1,000 MG/20 ML IV ONE (17:36)
[2019-04-03 18:06] LABS: Platelet Count 268 K/mm3 (140-440)
[2019-04-03] MEDS ORDERED: VANCOMYCIN/NS 1 GM/250 ML 1 GM/250 ML BAG IV ONE (19:00)
--- NOTE | 2019-04-03 19:42 | History and Physical Report ---
History of Present Illness Chief complaint: She is confused and keeps falling History of present illness: 58 YO Female with Super Morbid Obesity, Obstructive Jaundice S/P Biliary Stent placement, Sepsis, Acute on Chronic Respiratory Failure, Debility, Recurrent Falls, Diastolic CHF, Encephalopathy, Obesity Hypoventilation Syndrome, Lymphedema presents to ED for evaluation. Pt recently discharged from [facility]. Pt lethargic and unable to provide detailed history. Pt history provided by daughter. Pt daughter reports that patient has experienced progressive weakness over the past 2 months with worsening symptoms over the same time frame. Pt has experienced multiple falls over the past 2 weeks. Pt is currently Bedbound, Nonambulatory, and requires 6/6 Assistance with Activities of Daily living. Pt is incontinent of bowel and bladder. Pt seen and evaluated in ED and found to have poor prognosis. Advanced care planning conducted in ED. Pt daughter Sandi Casas informed of poor prognosis, and life expectancy. Pt daughter acknowledges understanding and agreement with care plan. Pt daughter requests Home Hospice Care. Pt medically optimized and has a prognosis of 6 months or less if her illnesses run their respective courses. Pt discharged home with Hospice care. Past History Past Medical History: other (See HPI) Past Surgical History: Other (Carpal tunnel surgery) Social history: single, lives with family. denies: smoking, alcohol abuse, prescription drug abuse Family history: hypertension Medications and Allergies Allergies Allergy/AdvReac Type Severity Reaction Status Date / Time No Known Allergies Allergy Verified 07/13/16 14:25 Home Medications Medication Instructions Recorded Confirmed Last Taken Type LORazepam [Ativan] 1 mg PO QHS #30 tab 04/03/19 Unknown Rx Morphine [Morphine ORAL SOLN 10 10 mg PO Q4HR PRN #30 ml 04/03/19 Unknown Rx MG/5 ML] Active Meds: Active Medications Vancomycin HCl (Vancomycin/Ns 1 Gm/250 Ml) 1 gm in 250 mls @ 166.667 mls/hr IV ONCE ONE Stop: 04/03/19 20:29 Last Admin: 04/03/19 18:29 Dose: 166.667 mls/hr Documented by: Review of Systems ROS unobtainable: due to mental status Exam - Constitutional Vitals: Temp Pulse Resp BP Pulse Ox 98 F 97 H 16 132/48 95 04/03/19 13:11 04/03/19 18:31 04/03/19 18:31 04/03/19 18:31 04/03/19 18:31 General appearance: Present: mild distress, obese - EENT Eyes: Present: miosis ENT: hearing decreased - Neck Neck: Present: supple, normal ROM, masses or JVD - Respiratory Respiratory effort: labored Respiratory: bilateral: diminished, rhonchi - Cardiovascular Heart Sounds: Present: S1 & S2. Absent: rub, click - Extremities Extremity abnormal: edema Peripheral Pulses: within normal limits - Abdominal General gastrointestinal: Present: soft, non-tender, non-distended, normal bowel sounds, other (Protuberant) Female genitourinary: Present: normal - Rectal Rectal Exam: normal exam-external/orifice, normal rectal tone - Integumentary Integumentary: Present: clear, dry, clammy, decreased turgor - Musculoskeletal Musculoskeletal: generalized weakness - Psychiatric Psychiatric: no appropriate mood/affect, no intact judgment & insight, no memory intact - Neurologic Neurologic: CNII-XII intact, moves all extremities, no gait normal Results - Labs CBC & Chem 7: 04/03/19 14:36 04/03/19 14:36 Labs: Abnormal lab results 04/03/19 04/03/19 04/03/19 Range/Units 14:36 14:36 14:36 WBC 20.7 H (4.5-11.0) K/mm3 RBC 5.30 H (3.65-5.03) M/mm3 MCH 25 L (28-32) pg RDW 21.0 H (13.2-15.2) % Seg Neuts % (Manual) 86.0 H (40.0-70.0) % Lymphocytes % (Manual) 5.0 L (13.4-35.0) % Seg Neutrophils # Man 17.8 H (1.8-7.7) K/mm3 Lymphocytes # (Manual) 1.0 L (1.2-5.4) K/mm3 Monocytes # (Manual) 1.0 H (0.0-0.8) K/mm3 APTT 21.5 L (24.2-36.6) Sec. Sodium 133 L (137-145) mmol/L Chloride 89.6 L (98-107) mmol/L Creatinine 0.4 L (0.7-1.2) mg/dL Glucose 103 H (65-100) mg/dL Alkaline Phosphatase 198 H (35-129) units/L Albumin 2.4 L (3.9-5) g/dL Assessment and Plan - Patient Problems (1) Acute and chronic respiratory failure Current Visit: Yes Status: Acute Qualifiers: Respiratory failure complication: hypoxia Qualified Code(s): J96.21 - Acute and chronic respiratory failure with hypoxia Plan to address problem: Supplemental oxygen, nebulizer therapy, comfort care, pulmonary toilet. Pt daughter request comfort care measures. Pt discharged home with hospice care. (2) Encephalopathy Current Visit: Yes Status: Acute Plan to address problem: Neuro checks, aspiration precautions, pain control, bed alarm. (3) CHF (congestive heart failure) Current Visit: Yes Status: Acute Qualifiers: Heart failure type: systolic Heart failure chronicity: acute on chronic Qualified Code(s): I50.23 - Acute on chronic systolic (congestive) heart failure Plan to address problem: afterload reduction, Strict I/O, supportive care, supplemental oxygen, pain control, comfort care measures. (4) Debility Current Visit: Yes Status: Acute Plan to address problem: Pt is currently Bedbound, and requires 6/6 Assistance with ADL's. Bedside commode, Shower chair, Hospital bed, Carolynn Lift. (5) Incontinence Current Visit: Yes Status: Acute Qualifiers: Incontinence type: urinary Plan to address problem: Adult diaper, supportive care, Samuels catheter PRN. (6) Obesity hypoventilation syndrome Current Visit: No Status: Acute Plan to address problem: supportive care, supplemental oxygen, pulmonary toilet, nebulizer therapy. (7) Sepsis Current Visit: No Status: Acute Qualifiers: Sepsis type: sepsis due to unspecified organism Qualified Code(s): A41.9 - Sepsis, unspecified organism Plan to address problem: Pt treated with empiric antibiotic therapy, Pt found to have poor prognosis. Pt daughter requests comfort care, as well as home hospice care.
[2019-04-03 20:02] LABS: Bilirubin,Urine NEG (Negative); Blood,Urine MOD (Negative); Color,Urine Yellow (Yellow); Protein,Urine <15 mg/dL mg/dL (Negative); Urobilinogen,Urine < 2.0 mg/dL (<2.0); WBC,Urine < 1.0 /HPF (0.0-6.0)
[2019-04-04 00:43] VITALS: BP 129/33
== END 2019-04-04 02:01 | disposition admitted as inpatient to this hospital (09) ==
LOC: ED 11:45
DX: J96.21 Acute and chronic respiratory failure with hypoxia (principal); E66.8 Other obesity; L03.116 Cellulitis of left lower limb; L03.115 Cellulitis of right lower limb; G93.40 Encephalopathy, unspecified; I11.0 Hypertensive heart disease with heart failure; I50.23 Acute on chronic systolic (congestive) heart failure; R53.81 Other malaise; R32 Unspecified urinary incontinence; A41.9 Sepsis, unspecified organism; M19.90 Unspecified osteoarthritis, unspecified site; J44.9 Chronic obstructive pulmonary disease, unspecified; R60.1 Generalized edema; Z79.899 Other long term (current) drug therapy
CPT/HCPCS: 36415; 71045; 80053; 81001; 82140; 83880; 85007; 85025; 85610; 85730; 87040; 93005; 93010; 96365; 99284; J3370